=== PATIENT | female | born 1945 | race Caucasian/White ===

== ENCOUNTER → 2016-10-17 | Outpatient (REF) | payer MEDICARE | LOC: M LAB REF 10:14 | PROVIDERS: ATTEND Physician Assistant | DX: J02.9 Acute pharyngitis, unspecified (principal) ==

== ENCOUNTER → 2017-01-01 | Outpatient (REF) | payer MEDICARE ==
[2017-01-01 16:40] LABS: MEAN CORPUSCULAR HEMOGLOBIN 28.1 pg (27.0-33.0); MEAN CORPUSCULAR HGB CONC 32.9 g/dl (32.0-36.5); MEAN CORPUSCULAR VOLUME 85.5 fl (80.0-96.0); RED CELL DISTRIBUTION WIDTH 12.6 % (11.5-14.5); WHITE BLOOD COUNT 6.1 K/mm3 (4.0-10.0)
[2017-01-01 17:09] LABS: ERYTHROCYTE SEDIMENTATION RATE 7 mm/hr (0-30)
[2017-01-01 18:39] LABS: URIC ACID 3.3 MG/DL (2.6-6.0)
[2017-01-01 19:55] LABS: EOSINOPHILS 4 % (0-5)
[2017-01-05 00:07] LABS: Lyme Disease IgG/IgM Antibodie <0.91 ISR (0.00-0.90); Lyme Disease IgM Ab Quantitati <0.80 index (0.00-0.79)
== END ==
LOC: M LABDRAW1 15:50
PROVIDERS: ATTEND Physician Assistant Surgical
DX: M17.11 Unilateral primary osteoarthritis, right knee (principal)

== ENCOUNTER → 2017-05-21 | Outpatient (CLI) | payer MEDICARE | LOC: M ADAMS 13:13 | PROVIDERS: ATTEND Physician Assistant Medical | DX: J02.9 Acute pharyngitis, unspecified (principal) ==

== ENCOUNTER → 2017-07-09 | Outpatient (REF) | payer MEDICARE ==
[2017-07-09 14:52] LABS: FREE T4 1.08 NG/DL (0.76-1.46)
== END ==
LOC: M LABDRAW1 14:23
DX: E04.2 Nontoxic multinodular goiter (principal)
CPT/HCPCS: 84443

== ENCOUNTER → 2017-09-10 | Outpatient (REF) | payer MEDICARE ==
[2017-09-10 20:34] LABS: BASO % 0.4 % (0.0-1.0); EOS # 0.1 10^3/uL (0.0-0.50); EOS % 1.5 % (0.0-3.0); HEMATOCRIT 45.4 % (36.0-47.0); HEMOGLOBIN 14.5 g/dl (12.0-15.5); IMMATURE GRANULOCYTE % 0.1 % (0-3.0); LYMPH # 2.4 10^3/uL (1.5-4.5); LYMPH % 30.6 % (24.0-44.0); MEAN CORPUSCULAR HEMOGLOBIN 27.4 pg (27.0-33.0); MEAN CORPUSCULAR HGB CONC 31.9 g/dl (32.0-36.5); MEAN CORPUSCULAR VOLUME 85.8 fl (80.0-96.0); MONO # 0.4 10^3/uL (0.0-0.8); MONO % 5.1 % (0.0-5.0); NEUTROPHILS # 4.9 10^3/uL (1.8-7.7); NEUTROPHILS % 62.3 % (36.0-66.0); PLATELET COUNT, AUTOMATED 235 10^3/uL (150-450); RED BLOOD COUNT 5.29 10^6/uL (4.00-5.40); WHITE BLOOD COUNT 7.8 10^3/uL (4.0-10.0)
[2017-09-13 12:13] LABS: CONTROL LINE MONO RF C INT CTR LINE PRESENT; MONO REFLEX EBV COMP NEGATIVE (NEGATIVE)
[2017-09-15 00:08] LABS: EBV AB TO NUCLEAR ANTIGEN 94.3 U/mL (0.0-17.9)
[2017-09-15 00:08] LABS: EBV VIRAL CAPSID AG IgM <36.0 U/mL (0.0-35.9)
== END ==
LOC: M LAB REF 10:02
DX: R53.83 Other fatigue (principal)
CPT/HCPCS: 86665

== ENCOUNTER 2017-09-22 17:02 | Emergency (ER) | payer MEDICARE ==
[2017-09-22] MEDS: PANTOPRAZOLE 40MG INJ (PROTONIX) (C9113) IV (18:11)
[2017-09-22 18:29] LABS: BASO % 0.4 % (0.0-1.0); EOS # 0.1 10^3/uL (0.0-0.50); EOS % 1.6 % (0.0-3.0); HEMATOCRIT 44.1 % (36.0-47.0); HEMOGLOBIN 14.3 g/dl (12.0-15.5); IMMATURE GRANULOCYTE % 0.3 % (0-3.0); LYMPH # 2.3 10^3/uL (1.5-4.5); LYMPH % 31.4 % (24.0-44.0); MEAN CORPUSCULAR HEMOGLOBIN 26.9 pg (27.0-33.0); MEAN CORPUSCULAR HGB CONC 32.4 g/dl (32.0-36.5); MEAN CORPUSCULAR VOLUME 83.1 fl (80.0-96.0); MONO # 0.5 10^3/uL (0.0-0.8); MONO % 6.5 % (0.0-5.0); NEUTROPHILS # 4.4 10^3/uL (1.8-7.7); NEUTROPHILS % 59.8 % (36.0-66.0); PLATELET COUNT, AUTOMATED 236 10^3/uL (150-450); RED BLOOD COUNT 5.31 10^6/uL (4.00-5.40); RED CELL DISTRIBUTION WIDTH 12.8 % (11.5-14.5); WHITE BLOOD COUNT 7.4 10^3/uL (4.0-10.0)
[2017-09-22 18:46] LABS: ALBUMIN 3.9 GM/DL (3.2-5.2); ALBUMIN/GLOBULIN RATIO 1.22 (1.00-1.93); ALKALINE PHOSPHATASE 104 U/L (45-117); ALT/SGPT 25 U/L (12-78); ANION GAP 5 MEQ/L (8-16); AST/SGOT 16 U/L (7-37); BILIRUBIN,DIRECT < 0.1 MG/DL (0.0-0.2); BILIRUBIN,TOTAL 0.3 MG/DL (0.2-1.0); BLOOD UREA NITROGEN 15 MG/DL (7-18); CALCIUM LEVEL 9.4 MG/DL (8.8-10.2); CARBON DIOXIDE LEVEL 30 MEQ/L (21-32); CHLORIDE LEVEL 108 MEQ/L (98-107); CPK CREATINE PHOSPHOKINASE 85 U/L (26-192); CREATININE FOR GFR 0.94 MG/DL (0.55-1.30); GLOMERULAR FILTRATION RATE > 60.0 (>39); GLUCOSE, FASTING 109 MG/DL (70-100); LIPASE 180 U/L (73-393); POTASSIUM SERUM 4.1 MEQ/L (3.5-5.1); SODIUM LEVEL 143 MEQ/L (136-145); TOTAL PROTEIN 7.1 GM/DL (6.4-8.2); TROPONIN I < 0.02 NG/ML (< 0.10)
[2017-09-22 18:47] LABS: CK-MB VALUE MASS < 1.0 NG/ML (<3.6); MB/CK RELATIVE INDEX 1.17 (< OR =4)
[2017-09-22] MEDS: GI COCKTAIL 50ML BTL(HYOSCYAMINE/MAALOX/LIDOCAINE VISCOUS)(1:3:1) PO (19:02)
== END 2017-09-22 19:07 | disposition home or self-care (01) ==
LOC: M ED 17:02
DX: K29.70 Gastritis, unspecified, without bleeding (principal); K21.9 Gastro-esophageal reflux disease without esophagitis; K44.9 Diaphragmatic hernia without obstruction or gangrene; Z79.899 Other long term (current) drug therapy; Z79.82 Long term (current) use of aspirin
CPT/HCPCS: C9113

== ENCOUNTER 2017-10-04 10:53 | Day surgery (SDC) | payer MEDICARE ==
[2017-10-04] MEDS: NS 1,000 ML IV (11:23)
[2017-10-04] MEDS ORDERED: PROPOFOL 500 MG/50 ML VIAL As Ordered (12:11)
[2017-10-04] MEDS ORDERED: LIDOCAINE 2% INJ 100 MG/5 ML SDV (FOR ANES.) As Ordered (12:12)
[2017-10-04] MEDS ORDERED: GLYCOPYRROLATE INJ 0.2 MG/ML 2 ML VIAL As Ordered (12:35)
== END 2017-10-04 13:10 | disposition home or self-care (01) ==
LOC: M OPP 10:53
DX: Z12.11 Encounter for screening for malignant neoplasm of colon (principal); K64.0 First degree hemorrhoids; K57.30 Diverticulosis of large intestine without perforation or abscess without bleeding; R12 Heartburn; K44.9 Diaphragmatic hernia without obstruction or gangrene; I34.1 Nonrheumatic mitral (valve) prolapse; E04.2 Nontoxic multinodular goiter; K21.9 Gastro-esophageal reflux disease without esophagitis; R06.02 Shortness of breath; M19.90 Unspecified osteoarthritis, unspecified site; Z88.5 Allergy status to narcotic agent; Z79.82 Long term (current) use of aspirin; Z79.899 Other long term (current) drug therapy; Z80.8 Family history of malignant neoplasm of other organs or systems
CPT/HCPCS: G0121

== ENCOUNTER → 2017-10-11 | Outpatient (REF) | payer MEDICARE ==
[2017-10-11 16:40] LABS: FREE T4 1.11 NG/DL (0.76-1.46)
== END ==
LOC: M LABDRAW1 14:35
DX: E04.2 Nontoxic multinodular goiter (principal)
CPT/HCPCS: 84443

== ENCOUNTER 2018-01-04 11:08 | Emergency (ER) | payer MEDICARE ==
[2018-01-04] MEDS: GI COCKTAIL 50ML BTL(HYOSCYAMINE/MAALOX/LIDOCAINE VISCOUS)(1:3:1) PO (12:44)
[2018-01-04] MEDS: ONDANSETRON 4 MG ORAL DISINTEGRATING TAB (Q0162 PER 1MG) PO (12:44)
[2018-01-04] MEDS: NS 1,000 ML IV (13:07)
[2018-01-04 13:15] LABS: BASO % 0.5 % (0.0-1.0); EOS # 0.1 10^3/uL (0.0-0.50); EOS % 1.2 % (0.0-3.0); HEMATOCRIT 45.2 % (36.0-47.0); HEMOGLOBIN 14.7 g/dl (12.0-15.5); IMMATURE GRANULOCYTE % 0.1 % (0-3.0); LYMPH # 1.2 10^3/uL (1.5-4.5); LYMPH % 15.4 % (24.0-44.0); MEAN CORPUSCULAR HEMOGLOBIN 27.2 pg (27.0-33.0); MEAN CORPUSCULAR HGB CONC 32.5 g/dl (32.0-36.5); MEAN CORPUSCULAR VOLUME 83.5 fl (80.0-96.0); MONO # 0.4 10^3/uL (0.0-0.8); MONO % 5.4 % (0.0-5.0); NEUTROPHILS # 5.9 10^3/uL (1.8-7.7); NEUTROPHILS % 77.4 % (36.0-66.0); PLATELET COUNT, AUTOMATED 248 10^3/uL (150-450); RED BLOOD COUNT 5.41 10^6/uL (4.00-5.40); RED CELL DISTRIBUTION WIDTH 12.9 % (11.5-14.5); WHITE BLOOD COUNT 7.6 10^3/uL (4.0-10.0)
[2018-01-04 13:44] LABS: ALBUMIN 3.8 GM/DL (3.2-5.2); ALBUMIN/GLOBULIN RATIO 0.97 (1.00-1.93); ALKALINE PHOSPHATASE 95 U/L (45-117); ALT/SGPT 25 U/L (12-78); ANION GAP 6 MEQ/L (8-16); AST/SGOT 18 U/L (7-37); BILIRUBIN,DIRECT 0.1 MG/DL (0.0-0.2); BILIRUBIN,TOTAL 0.4 MG/DL (0.2-1.0); BLOOD UREA NITROGEN 11 MG/DL (7-18); CALCIUM LEVEL 9.1 MG/DL (8.8-10.2); CARBON DIOXIDE LEVEL 29 MEQ/L (21-32); CHLORIDE LEVEL 105 MEQ/L (98-107); CK-MB VALUE MASS 1.1 NG/ML (<3.6); CPK CREATINE PHOSPHOKINASE 95 U/L (26-192); CREATININE FOR GFR 0.94 MG/DL (0.55-1.30); GLOMERULAR FILTRATION RATE > 60.0 (>39); GLUCOSE, FASTING 112 MG/DL (70-100); LIPASE 133 U/L (73-393); MB/CK RELATIVE INDEX 1.15 (< OR =4); POTASSIUM SERUM 4.7 MEQ/L (3.5-5.1); SODIUM LEVEL 140 MEQ/L (136-145); TOTAL PROTEIN 7.7 GM/DL (6.4-8.2); TROPONIN I < 0.02 NG/ML (< 0.10)
== END 2018-01-04 14:25 | disposition home or self-care (01) ==
LOC: M ED 11:08
DX: K29.00 Acute gastritis without bleeding (principal); K21.9 Gastro-esophageal reflux disease without esophagitis; Z88.5 Allergy status to narcotic agent; Z79.899 Other long term (current) drug therapy; Z79.82 Long term (current) use of aspirin
CPT/HCPCS: Q0162

== ENCOUNTER 2018-01-08 00:53 | Emergency (ER) | payer MEDICARE ==
[2018-01-08] MEDS: METOCLOPRAMIDE INJ 10MG/2ML VIAL (J2765) IV (03:30)
[2018-01-08] MEDS: NS 1,000 ML IV (03:30)
[2018-01-08] MEDS: PANTOPRAZOLE 40MG INJ (PROTONIX) (C9113) IV (03:30)
[2018-01-08 04:05] LABS: BASO % 0.3 % (0.0-1.0); EOS # 0.1 10^3/uL (0.0-0.50); EOS % 1.6 % (0.0-3.0); HEMATOCRIT 41.6 % (36.0-47.0); HEMOGLOBIN 13.6 g/dl (12.0-15.5); IMMATURE GRANULOCYTE % 0.3 % (0-3.0); LYMPH # 1.8 10^3/uL (1.5-4.5); MEAN CORPUSCULAR HEMOGLOBIN 27.3 pg (27.0-33.0); MEAN CORPUSCULAR HGB CONC 32.7 g/dl (32.0-36.5); MEAN CORPUSCULAR VOLUME 83.4 fl (80.0-96.0); MONO # 0.4 10^3/uL (0.0-0.8); MONO % 5.8 % (0.0-5.0); NEUTROPHILS # 5.1 10^3/uL (1.8-7.7); PLATELET COUNT, AUTOMATED 216 10^3/uL (150-450); RED BLOOD COUNT 4.99 10^6/uL (4.00-5.40); RED CELL DISTRIBUTION WIDTH 12.7 % (11.5-14.5); WHITE BLOOD COUNT 7.5 10^3/uL (4.0-10.0)
[2018-01-08] MEDS: GI COCKTAIL 50ML BTL(HYOSCYAMINE/MAALOX/LIDOCAINE VISCOUS)(1:3:1) PO ×2 (04:15→05:45)
[2018-01-08] MEDS: GASTROGRAFIN SOLUTION 30ML PO ×2 (04:20→04:24)
[2018-01-08] MEDS ORDERED: ISOVUE-370 76% 100ML VIAL (Q9967) As Ordered (04:22)
[2018-01-08 04:30] LABS: ALBUMIN 3.4 GM/DL (3.2-5.2); ALBUMIN/GLOBULIN RATIO 1.13 (1.00-1.93); ALKALINE PHOSPHATASE 80 U/L (45-117); ALT/SGPT 19 U/L (12-78); ANION GAP 8 MEQ/L (8-16); AST/SGOT 11 U/L (7-37); BILIRUBIN,DIRECT 0.1 MG/DL (0.0-0.2); BILIRUBIN,TOTAL 0.4 MG/DL (0.2-1.0); BLOOD UREA NITROGEN 11 MG/DL (7-18); CALCIUM LEVEL 8.6 MG/DL (8.8-10.2); CARBON DIOXIDE LEVEL 28 MEQ/L (21-32); CHLORIDE LEVEL 107 MEQ/L (98-107); CK-MB VALUE MASS < 1.0 NG/ML (<3.6); CPK CREATINE PHOSPHOKINASE 61 U/L (26-192); CREATININE FOR GFR 0.85 MG/DL (0.55-1.30); GLOMERULAR FILTRATION RATE > 60.0 (>39); GLUCOSE, FASTING 105 MG/DL (70-100); LIPASE 171 U/L (73-393); MB/CK RELATIVE INDEX 1.63 (< OR =4); POTASSIUM SERUM 3.6 MEQ/L (3.5-5.1); SODIUM LEVEL 143 MEQ/L (136-145); TOTAL PROTEIN 6.4 GM/DL (6.4-8.2); TROPONIN I < 0.02 NG/ML (< 0.10)
== END 2018-01-08 07:04 | disposition home or self-care (01) ==
LOC: M ED 00:53
DX: K52.9 Noninfective gastroenteritis and colitis, unspecified (principal); K21.9 Gastro-esophageal reflux disease without esophagitis; F33.9 Major depressive disorder, recurrent, unspecified; K44.9 Diaphragmatic hernia without obstruction or gangrene; Z79.899 Other long term (current) drug therapy; Z79.82 Long term (current) use of aspirin; Z88.5 Allergy status to narcotic agent
CPT/HCPCS: C9113

== ENCOUNTER → 2018-01-25 | Outpatient (CLI) | payer MEDICARE ==
[2018-01-25 07:40] LABS: HEMATOCRIT 43.3 % (36.0-47.0); HEMOGLOBIN 14.1 g/dl (12.0-15.5); MEAN CORPUSCULAR HEMOGLOBIN 27.6 pg (27.0-33.0); MEAN CORPUSCULAR HGB CONC 32.6 g/dl (32.0-36.5); MEAN CORPUSCULAR VOLUME 84.7 fl (80.0-96.0); PLATELET COUNT, AUTOMATED 200 10^3/uL (150-450); RED BLOOD COUNT 5.11 10^6/uL (4.00-5.40); RED CELL DISTRIBUTION WIDTH 13.3 % (11.5-14.5); WHITE BLOOD COUNT 6.7 10^3/uL (4.0-10.0)
[2018-01-25 08:31] LABS: ALBUMIN 3.3 GM/DL (3.2-5.2); ALKALINE PHOSPHATASE 86 U/L (45-117); ALT/SGPT 18 U/L (12-78); ANION GAP 6 MEQ/L (8-16); AST/SGOT 8 U/L (7-37); BILIRUBIN,TOTAL 0.4 MG/DL (0.2-1.0); BLOOD UREA NITROGEN 13 MG/DL (7-18); CALCIUM LEVEL 8.9 MG/DL (8.8-10.2); CARBON DIOXIDE LEVEL 31 MEQ/L (21-32); CHLORIDE LEVEL 106 MEQ/L (98-107); CHOLESTEROL LEVEL 174 MG/DL (<200); CHOLESTEROL RISK RATIO 2.636 (<5); GLUCOSE, FASTING 107 MG/DL (70-100); HDL CHOLESTEROL 66 MG/DL (>40); LDL CHOLESTEROL 95.6 MG/DL (<100); NON-HDL-C 108 MG/DL; SODIUM LEVEL 143 MEQ/L (136-145); THYROXINE (T4) 9.1 UG/DL (4.5-12.0); TOTAL PROTEIN 6.3 GM/DL (6.4-8.2); TRIGLYCERIDES LEVEL 62 MG/DL (<150)
[2018-01-25 09:35] LABS: TOTAL 25(OH) VITAMIN D 74.3 NG/ML (30.0-100.0); TOTAL T3 91.2 NG/DL (60.0-181.0)
[2018-01-25 09:36] LABS: ESTRADIOL < 19.0 PG/ML; FOLLICLE STIMULATING HORMONE 92.9 mIU/mL; LUTEINIZING HORMONE 25.3 mIU/mL
== END ==
LOC: M LAB 07:06
DX: R53.83 Other fatigue (principal); E78.00 Pure hypercholesterolemia, unspecified
CPT/HCPCS: 83001

== ENCOUNTER → 2018-01-28 | Outpatient (CLI) | payer MEDICARE | LOC: M RAD 07:54 | DX: R22.1 Localized swelling, mass and lump, neck (principal) | CPT/HCPCS: 70490 ==

== ENCOUNTER → 2019-05-12 | Outpatient (REF) | payer MEDICARE ==
[~2019-05-12] MED LIST: ASPI81TA85 PO; BUPR1TAB53 PO; CARA1TAB6 PO; PRED20TA PO; PROT1TAB2 PO; TUMERIC PO; TURM500T PO; VITA200038 PO; VITATAB11 PO; ZOFR4TAB14 PO
== END ==
LOC: M LAB REF 18:52
PROVIDERS: ATTEND Dermatology
DX: C44.1292 Squamous cell carcinoma of skin of left lower eyelid, including canthus (principal); L57.0 Actinic keratosis; D22.5 Melanocytic nevi of trunk
CPT/HCPCS: 11103; 11104; 88305; G0463

== ENCOUNTER → 2019-05-16 | Outpatient (REF) | payer MEDICARE ==
[2019-05-16 13:33] LABS: APPEARANCE, URINE HAZY (CLEAR); BACTERIA, URINE AUTO NEGATIVE (NEGATIVE); BILIRUBIN, URINE AUTO NEGATIVE (NEGATIVE); BLOOD, URINE BLOOD NEGATIVE (NEGATIVE); COLOR, URINE YELLOW (YELLOW); GLUCOSE, URINE (UA) AUTO NEGATIVE (NEGATIVE); KETONE, URINE AUTO NEGATIVE (NEGATIVE); LEUKOCYTE ESTERASE, URINE AUTO NEGATIVE (NEGATIVE); NITRITE, URINE AUTO NEGATIVE (NEGATIVE); PROTEIN, URINE AUTO NEGATIVE (NEGATIVE); RBC, URINE AUTO 4 /HPF (0-3); SPECIFIC GRAVITY URINE AUTO 1.023 (1.002-1.035); SQUAMOUS EPITHELIAL CELL UR AU 0 /HPF (0-6); UROBILINOGEN, URINE AUTO 0.2 mg/dL (0.0-2.0); WBC, URINE AUTO 1 /HPF (0-3)
== END ==
LOC: M LAB REF 12:32
PROVIDERS: ATTEND Nurse Practitioner Family
DX: R31.9 Hematuria, unspecified (principal)

== ENCOUNTER → 2019-05-26 | Outpatient (REF) | payer MEDICARE | LOC: M LAB REF 17:27 | PROVIDERS: ATTEND Dermatology | DX: D04.122 Carcinoma in situ of skin of left lower eyelid, including canthus (principal) ==

== ENCOUNTER → 2019-05-27 | Outpatient (CLI) | payer MEDICARE ==
--- NOTE | 2019-05-28 14:44 | REP ---
REASON: Pain. PRIORS: None. There are degenerative changes seen moderately throughout the hand particularly affecting the DIP joints of digits 2 through 5 with asymmetric joint space narrowing and marginal osteophytosis. Chronic changes are also seen involving the wrist. There is a small ossific density seen in the web space between the first and second metacarpals near their bases possibly representing an old fracture. It is difficult to evaluate on this plain film exam. IMPRESSION:Chronic changes and other findings are suspected as described above. If this examination was performed to rule out an acute fracture then I would recommend CT. Electronically Signed by Wild Mendez DO 05/28/2019 03:26 P
== END ==
LOC: M ADAMS 17:03
PROVIDERS: ATTEND Physician Assistant
DX: M19.042 Primary osteoarthritis, left hand (principal)

== ENCOUNTER → 2019-07-05 | Outpatient (REF) | payer MEDICARE | LOC: M LAB REF 09:11 | PROVIDERS: ATTEND Dermatology | DX: C44.1292 Squamous cell carcinoma of skin of left lower eyelid, including canthus (principal) ==

== ENCOUNTER → 2019-11-23 | Outpatient (REF) | payer MEDICARE | LOC: M LAB REF 17:33 | PROVIDERS: ATTEND Dermatology | DX: L72.11 Pilar cyst (principal) ==

== ENCOUNTER → 2020-03-04 | Outpatient (CLI) | payer MEDICARE ==
[~2020-03-04] MED LIST changes: -ASPI81TA85 PO; +ASPI81TA86 PO
--- NOTE | 2020-03-13 14:46 | REP ---
CHEST X-RAY: 2-VIEWS HISTORY: Shortness of breath. COMPARISON CHEST X-RAY: 01/04/2018. FINDINGS: There are clips in the right upper quadrant consistent with previous cholecystectomy. There is a moderate S-shaped thoracolumbar scoliotic curve, which is unchanged from the 01/04/2018 study. The lungs are well-inflated and otherwise clear. The pleural angles are sharp. Heart size is normal. Pulmonary vasculature is not increased. No other bony abnormality. IMPRESSION: Moderate S-shaped thoracic and lumbar curvature of the spine. Otherwise no active disease. Post cholecystectomy clips. MTDD
== END ==
LOC: M ADAMS 13:37
PROVIDERS: ATTEND Internal Medicine Cardiovascular Disease
DX: R06.02 Shortness of breath (principal); Z92.21 Personal history of antineoplastic chemotherapy; Z90.49 Acquired absence of other specified parts of digestive tract

== ENCOUNTER → 2020-05-24 | Outpatient (REF) | payer MEDICARE ==
[2020-05-24 13:16] LABS: BASO % 0.4 % (0.0-1.0); EOS # 0.1 10^3/uL (0.0-0.5); EOS % 0.8 % (0.0-3.0); HEMATOCRIT 48.2 % (36.0-47.0); HEMOGLOBIN 15.1 g/dl (12.0-15.5); LYMPH # 1.3 10^3/uL (1.5-5.0); MEAN CORPUSCULAR HEMOGLOBIN 26.5 pg (27.0-33.0); MEAN CORPUSCULAR HGB CONC 31.3 g/dl (32.0-36.5); MEAN CORPUSCULAR VOLUME 84.6 fl (80.0-96.0); MONO # 0.4 10^3/uL (0.0-0.8); MONO % 4.2 % (0.0-5.0); NEUTROPHILS # 6.8 10^3/uL (1.5-8.5); NEUTROPHILS % 79.2 % (36.0-66.0); PLATELET COUNT, AUTOMATED 214 10^3/uL (150-450); WHITE BLOOD COUNT 8.5 10^3/uL (4.0-10.0)
[2020-05-24 13:42] LABS: ALBUMIN 3.7 GM/DL (3.2-5.2); ALT/SGPT 21 U/L (12-78); BILIRUBIN,TOTAL 0.4 MG/DL (0.2-1.0); BLOOD UREA NITROGEN 14 MG/DL (7-18); CALCIUM LEVEL 9.4 MG/DL (8.8-10.2); CARBON DIOXIDE LEVEL 30 MEQ/L (21-32); CHLORIDE LEVEL 105 MEQ/L (98-107); CREATININE FOR GFR 0.93 MG/DL (0.55-1.30); GLOMERULAR FILTRATION RATE > 60.0 (>39); GLUCOSE, FASTING 119 MG/DL (70-100); LIPASE 162 U/L (73-393); POTASSIUM SERUM 5.1 MEQ/L (3.5-5.1); SODIUM LEVEL 140 MEQ/L (136-145); TOTAL PROTEIN 7.2 GM/DL (6.4-8.2)
== END ==
LOC: M LABDRWAD 12:11
PROVIDERS: ATTEND Physician Assistant
DX: R42 Dizziness and giddiness (principal); R11.0 Nausea

== ENCOUNTER → 2020-08-15 | Outpatient (CLI) | payer MEDICARE ==
--- NOTE | 2020-08-15 09:57 | REP ---
INDICATION: COPD, ANEMIA COMPARISON: 03/04/2020 TECHNIQUE: PA and lateral. FINDINGS: Mediastinum and cardiac silhouette are stable. Scoliosis again noted. Lung dubois are clear. No consolidation, effusion, or pneumothorax. IMPRESSION: No acute cardiopulmonary process. <Electronically signed by Osmani Prasad > 08/15/20 0954
[2020-08-15 13:07] LABS: HEMATOCRIT 44.2 % (36.0-47.0); MEAN CORPUSCULAR HEMOGLOBIN 27.2 pg (27.0-33.0); MEAN CORPUSCULAR HGB CONC 31.7 g/dl (32.0-36.5); MEAN CORPUSCULAR VOLUME 85.8 fl (80.0-96.0); PLATELET COUNT, AUTOMATED 213 10^3/uL (150-450); RED BLOOD COUNT 5.15 10^6/uL (4.00-5.40); WHITE BLOOD COUNT 5.9 10^3/uL (4.0-10.0)
[2020-08-15 13:41] LABS: ALBUMIN 3.5 GM/DL (3.2-5.2); ALT/SGPT 21 U/L (12-78); BILIRUBIN,TOTAL 0.4 MG/DL (0.2-1.0); BLOOD UREA NITROGEN 16 MG/DL (7-18); CALCIUM LEVEL 9.3 MG/DL (8.8-10.2); CARBON DIOXIDE LEVEL 29 MEQ/L (21-32); CHLORIDE LEVEL 108 MEQ/L (98-107); CHOLESTEROL LEVEL 188 MG/DL (<200); CHOLESTEROL RISK RATIO 2.984 (<5); CREATININE FOR GFR 0.86 MG/DL (0.55-1.30); GLOMERULAR FILTRATION RATE > 60.0 (>39); GLUCOSE, FASTING 96 MG/DL (70-100); HDL CHOLESTEROL 63 MG/DL (>40); IRON (FE) 73 UG/DL (50-170); LDL CHOLESTEROL 112 MG/DL (<100); NON-HDL-C 125 MG/DL; PERCENT SATURATION 19.6 % (13.2-45.0); POTASSIUM SERUM 4.5 MEQ/L (3.5-5.1); SODIUM LEVEL 141 MEQ/L (136-145); TOTAL 25(OH) VITAMIN D 81.5 NG/ML (30.0-100.0); TOTAL IRON BINDING CAPACITY 373 UG/DL (250-450); TOTAL PROTEIN 6.4 GM/DL (6.4-8.2); TRIGLYCERIDES LEVEL 63 MG/DL (<150)
[2020-08-15 14:13] LABS: HEMOGLOBIN A1c 5.6 %
== END ==
LOC: M ADAMS 09:39
PROVIDERS: ATTEND Family Medicine
DX: J44.9 Chronic obstructive pulmonary disease, unspecified (principal); D48.5 Neoplasm of uncertain behavior of skin; R53.83 Other fatigue; Z79.899 Other long term (current) drug therapy

== ENCOUNTER 2020-11-19 07:11 | Emergency (ER) | payer MEDICARE ==
[~2020-11-19] VITALS: Ht 167.6 cm; Wt 58.4 kg
[2020-11-19] MEDS ORDERED: [UNRECOGNIZED DRUG - CODE] PO (07:21)
[2020-11-19] MEDS ORDERED: ALPR0.25 PO (07:21)
[2020-11-19] MEDS ORDERED: FLUO20CA22 PO (07:21)
[2020-11-19] MEDS ORDERED: PANT40TA29 PO (07:21)
[2020-11-19 08:33] LABS: HEMOGLOBIN 14.2 g/dl (12.0-15.5); MEAN CORPUSCULAR HGB CONC 31.6 g/dl (32.0-36.5); MEAN CORPUSCULAR VOLUME 85.7 fl (80.0-96.0); PLATELET COUNT, AUTOMATED 212 10^3/uL (150-450); RED BLOOD COUNT 5.25 10^6/uL (4.00-5.40); WHITE BLOOD COUNT 7.5 10^3/uL (4.0-10.0)
[2020-11-19 08:55] LABS: AMPHETAMINES LEVEL URINE NEGATIVE (NEGATIVE); BARBITURATES URINE NEGATIVE (NEGATIVE); BENZODIAZEPINES URINE POSITIVE (NEGATIVE); CANNABINOIDS URINE NEGATIVE (NEGATIVE); COCAINE METABOLITE URINE NEGATIVE (NEGATIVE); METHADONE URINE NEGATIVE (NEGATIVE); OPIATES URINE NEGATIVE (NEGATIVE); PHENCYCLIDINE URINE NEGATIVE (NEGATIVE)
[2020-11-19 09:08] LABS: ALBUMIN 3.6 GM/DL (3.2-5.2); ALT/SGPT 21 U/L (12-78); BILIRUBIN,DIRECT 0.1 MG/DL (0.0-0.2); BILIRUBIN,TOTAL 0.4 MG/DL (0.2-1.0); BLOOD UREA NITROGEN 10 MG/DL (7-18); CALCIUM LEVEL 9.2 MG/DL (8.8-10.2); CARBON DIOXIDE LEVEL 29 MEQ/L (21-32); CHLORIDE LEVEL 108 MEQ/L (98-107); CREATININE FOR GFR 0.89 MG/DL (0.55-1.30); GLOMERULAR FILTRATION RATE > 60.0 (>39); GLUCOSE, FASTING 115 MG/DL (70-100); POTASSIUM SERUM 4.7 MEQ/L (3.5-5.1); SALICYLATE LEVEL < 1.7 MG/DL (5.0-30.0); SODIUM LEVEL 141 MEQ/L (136-145); TOTAL PROTEIN 6.8 GM/DL (6.4-8.2)
[2020-11-19 09:09] LABS: ACETAMINOPHEN LEVEL < 2.0 UG/ML (10.0-30.0); ETHYL ALCOHOL (ETHANOL) < 0.003 % (0.000-0.010)
[2020-11-19 10:19] VITALS: BP 125/77
[2020-11-20] MEDS ORDERED: D31000TA2 PO (12:56)
[2020-11-20] MEDS ORDERED: VITA100091 PO (12:56)
[2020-11-20] MEDS ORDERED: ZINC1TAB2 PO (12:56)
[2020-11-20] MEDS ORDERED: FISH1000 PO (12:56)
[2020-11-20] MEDS ORDERED: [UNRECOGNIZED DRUG - OTHER] OU (12:56)
== END 2020-11-19 10:32 | disposition home or self-care (01) ==
LOC: M ED 07:11
DX: F33.9 Major depressive disorder, recurrent, unspecified (principal); K21.9 Gastro-esophageal reflux disease without esophagitis; Z88.6 Allergy status to analgesic agent; Z91.041 Radiographic dye allergy status; Z79.899 Other long term (current) drug therapy

== ENCOUNTER 2020-11-20 06:18 | Inpatient (IN) | payer MEDICARE ==
[~2020-11-20] VITALS: Ht 167.6 cm; Wt 57.6 kg
[~2020-11-20 06:18] MED LIST changes: +ALPR0.25 PO; +FLUO20CA22 PO; +PANT40TA29 PO; +[UNRECOGNIZED DRUG - CODE] PO
[2020-11-20] MEDS ORDERED: ALPRAZolam 0.25 MG TAB PO ONE (07:50)
[2020-11-20 10:12] LABS: ACETAMINOPHEN LEVEL < 2.0 UG/ML (10.0-30.0); ETHYL ALCOHOL (ETHANOL) < 0.003 % (0.000-0.010); MAGNESIUM LEVEL 2.3 MG/DL (1.8-2.4); SALICYLATE LEVEL < 1.7 MG/DL (5.0-30.0)
[2020-11-20 10:46] LABS: AMPHETAMINES LEVEL URINE NEGATIVE (NEGATIVE); BARBITURATES URINE NEGATIVE (NEGATIVE); BENZODIAZEPINES URINE POSITIVE (NEGATIVE); CANNABINOIDS URINE NEGATIVE (NEGATIVE); COCAINE METABOLITE URINE NEGATIVE (NEGATIVE); METHADONE URINE NEGATIVE (NEGATIVE); OPIATES URINE NEGATIVE (NEGATIVE); PHENCYCLIDINE URINE NEGATIVE (NEGATIVE)
[2020-11-20] MEDS ORDERED: ALPRAZolam 0.25 MG TAB PO SCH ×2 (12:00→17:00)
[2020-11-20] MEDS ORDERED: FLUoxetine 20 MG CAP PO SCH ×3 (12:00→13:39)
[2020-11-20] MEDS ORDERED: VITA100091 PO (12:56)
[2020-11-20] MEDS ORDERED: FISH1000 PO (12:56)
[2020-11-20] MEDS ORDERED: ZINC1TAB2 PO (12:56)
[2020-11-20] MEDS ORDERED: D31000TA2 PO (12:56)
[2020-11-20] MEDS ORDERED: [UNRECOGNIZED DRUG - OTHER] OU (12:56)
[2020-11-20 13:26] LABS: RSV AMPLIFICATION NEGATIVE (NEGATIVE)
[2020-11-20] MEDS: ALPRAZolam 0.25 MG TAB PO SCH ×3 (13:42→20:41)
[2020-11-20] MEDS ORDERED: MOM 30ML SUSPENSION UDC PO PRN (17:05)
[2020-11-20] MEDS ORDERED: ACETAMINOPHEN TAB 650MG DOSE (2X325MG) PO PRN (17:05)
[2020-11-20] MEDS ORDERED: MAALOX 30 ML SUSP *UDC PO PRN (17:05)
[2020-11-20] MEDS: [UNRECOGNIZED DRUG - OTHER] OU SCH (20:43)
[2020-11-20] MEDS ORDERED: [UNRECOGNIZED DRUG - OTHER] OU SCH (21:00)
[2020-11-20] MEDS: FLUoxetine 20 MG CAP PO SCH (21:00)
[2020-11-21 06:38] VITALS: BP 133/76
[2020-11-21] MEDS ORDERED: PANTOPRAZOLE 40MG TAB (PROTONIX) PO SCH ×2 (09:00)
[2020-11-21] MEDS: [UNRECOGNIZED DRUG - OTHER] OU SCH ×2 (09:15→20:58)
[2020-11-21] MEDS: PANTOPRAZOLE 40MG TAB (PROTONIX) PO SCH (09:17)
[2020-11-21] MEDS: FLUoxetine 20 MG CAP PO SCH (09:17)
[2020-11-21] MEDS: ALPRAZolam 0.25 MG TAB PO SCH ×4 (09:17→20:59)
[2020-11-21] MEDS: ASCORBIC ACID 500 MG TAB PO SCH (09:17)
[2020-11-21] MEDS: VITAMIN D 1,000 INTERNATIONAL UNITS TABLET PO SCH (09:17)
[2020-11-21] MEDS: OMEGA-3 1000MG CAPSULE PO SCH (10:30)
--- NOTE | 2020-11-21 12:21 | MHHPEPDOC ---
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 She also complains on and baby sits her grandchildren. She reports feeling burnt out and has reduced some of these responsibilities but states she doesn't know what to do with the extra time. She has reported quite a number of disappointments and sad events in her life. #1 having to take care of her father is a 13-year-old when he was diagnosed with Hodgkin's lymphoma. She was giving her father in injections, he later became addicted to the pain medications, but he lived until he was 89 years old. #2 . She reports guilt from her mother being sent to live in a penitentiary because she has Alzheimer's. No one in the family could care for her. She one month later, after having fallen in the penitentiary, not giving her her medications as she reports. #3, Her left her and 2 children and remarried a woman who is 30 years younger and had 4 more children. She states that this was a very difficult time for her financially, she stated at one point her daughter said that she was going to live with a friend but lived out of her car for several weeks. #4. Her nephew recently of ALS. #5. She is currently downsizing her house, wanting to organize her attic, basement, and barn, but states that she has no motivation, #6 Reports that she has helped her ex- through major surgeries. He has since apologized for his decision to divorce her and has made statements that he would like to rekindle the relationship but she is not interested in anymore than a friendship. PER ED REPORT: Pt self-presented to ED with increased thoughts of depression and decreased sleep, drive, and appetite. Pt presented to the ED with her daughter. Pt was seen at [facility] yesterday for similar complaints; pt. is stating that her symptoms are continuing to worsen. Pt presented with her daughter. COLT conducted beginning of MHE with pt. while her daughter was in waiting room. Pt explained multiple different responsibilities that she is faced with. Pt explained that she is struggling to get enjoyment out of the things she used to love. Pt stated that she is very burnt out and just wants to give up. Pt stated that this has been going on for the past few months, and states she has "just been plugging away until recently when it got noticeably worse." PT reported poor sleep and poor appetite. When asked if she was suicidal pt. stated "I am just so tired of feeling this way" Pt denied HI and AH/VH but did explain dreams that she feels she is awake in. Pt stated that she and her two children met with Dr. Troy Reyes yesterday, pt. stated she liked him but he does not prescribe meds and she feels she needs a medication change. Pt reports currently being on Prozac 2x daily as well as Xanax 4x daily but does not believe these are helping. Pt reports 1 prior mental health admission in the . PSA met with pt. daughter when pt. in room. Pt daughter stated that for the past couple months her mother has been increasingly tired, and that in the morning she really struggles. Pt daughter stated that every day is a rollercoaster, and she is very concerned for her mother's wellbeing. Pt daughter stated that this morning her mother told her she "couldn't be left alone" and while they were talking about why her mother said things like "I'm done fighting, I don't darrell to be here anymore" "I'm just giving up." When COLT directly asked pt. she refused to answer, but immediately began to cry. Pt daughter stated that she believes her mother's pride is getting in the way of her being honest about her mental wellbeing. Pt daughter stated that she thinks her mother is having suicidal thoughts, but is struggling to communicate that because she is able to think of different things she wants to live for like her family. Pt stated that she does not feel safe to be D/C at this point. Pt daughter agrees that pt. is not safe to be discharged. Psychiatric Review of Systems Depression (2 or more weeks): depressed mood, anhedonia, insomnia/hypersomnia, feelings of excess/guilt, decreased energy, difficulty concentrating, appetite changes, psychomotor changes Ora (4 or more days of): denies Psychosis: denies PTSD: denies Anxiety: gen/non-specific anxiety, situational anxiety, stressor related anxiety Anxiety/ 6 months or more of: easily fatigued, difficulty concentrating, sleep disturbance Past Psychiatric History Previous Psychiatric Diagnosis: Depression and anxiety Previous Psychiatric Admissions: In the at [facility] Suicide Attempts:. Denies. Psychiatric Follow-up: Dr Templeton (Not at [facility]). Psychiatric medications: Prozac 20 mg BID, Alprazolam 0.25 mg QID. Past Medical History Medical Problems Depression Anxiety GERD Gastritis History of hiatal hernia History of colitis Head Injury: No Seizures: No Hospitalizations: Yes Family Medical/Psychiatric HX Medical Problems Father , Hodgkin's lymphoma Mother Alzheimer's disease Addiction: Yes (father, opiates) Addiction History denies Social History Childhood: Born in [place] to both parents, has two older sisters. Took care of her father when he had Hodgkins Lymphoma, she gave him his injections. Abuse/Trauma: No child abuse Current Living Situation: Lives alone Education: High School Employment: Retired Social Support: Children. Legal: None Marital: 20+ Mental Status Examination General Appearance: well groomed, appears stated age, hospital scubs/clothing Build: average Demeanor: average Eye Contact: average Activity: average Behavior: cooperative Speech: clear, reg/rate,rhythm,volume Mood: depressed, anxious Affect: constricted, other (, tearful) Thought Process: logical/linear Thought Content (Delusions): none reported Thought Content (Other): none reported Thought Content (Aggressive): none reported Perception (Hallucinations): none reported Perception (Other): none reported Cognition (Impairment of): none reported Cognition(Intelligence Est.): average Oriented: Awake, Alert, Oriented times three Insight: good Judgment: Good Psychosis: Denies Diagnoses Major depressive disorder, recurrent, moderate , Generalized anxiety disorder A-FIB/CHADSVASC A-FIB History Current/History of A-Fib/PAF?: No Current PO Anticoag Therapy: No Assessment Patient is a 74 -year-old , Retired, Domiciled , female, who self presented to the emergency department with increased depression, anxiety, poor sleep, excessive crying, poor motivation and poor appetite, patient reports that she is very active in the gnosticism is 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 She also complains on and baby sits her grandchildren. She reports feeling burnt out and has reduced some of these responsibilities but states she doesn't know what to do with the extra time. She has reported quite a number of disappointments and sad events in her life. #1 having to take care of her father is a 13-year-old when he was diagnosed with Hodgkin's lymphoma. She was giving her father in injections, he later became addicted to the pain medications, but he lived until he was 89 years old. #2 . She reports guilt from her mother being sent to live in a penitentiary because she has Alzheimer's. No one in the family could care for her. She one month later, after having fallen in the penitentiary, not giving her her medications as she reports. #3, Her left her and 2 children and remarried a woman who is 30 years younger and had 4 more children. She states that this was a very difficult time for her financially, she stated at one point her daughter said that she was going to live with a friend but lived out of her car for several weeks. #4. Her nephew recently of ALS. #5. She is currently downsizing her house, wanting to organize her attic, basement, and barn, but states that she has no motivation, #6 Reports that she has helped her ex- through major surgeries. He has since apologized for his decision to divorce her and has made statements that he would like to rekindle the relationship but she is not interested in anymore than a friendship. Mental status exam patient is well groomed, appears her stated age, wearing hospital scrubs, sitting upright in chair. She is calm and cooperative, alert, oriented to person, place, time and situation. Eye contact is maintained. Her speech is clear, conversant, normal rate, tone and volume. Mood is depressed and very anxious. Affect congruent with stated mood. Thought process is linear and goal oriented. She denies and is not observed with any abnormal psychotic symptoms. Cognition and attention is intact. Intelligence is average. Insight and judgment good. Denies suicidality and homicidality. Admit to my service on 939. We will resume home medications. Place on relevant precautions. We will inc rease Prozac to 30 mg twice daily, Xanax to stay at the current dosage. Patient to be involved in individual, group and milieu therapy. Will discharge when stable with follow-up to mental health services. I anticipate this to be a 3-5 day stay Initial Treatment Plan 1. Patient was admitted on a [9.39] status. 2. Complete history was obtained. 3. With patients permission, family will be contacted and database will be expanded. 4. Patients medication regimen will be reviewed and changed accordingly. 5. Patient will be provided with protected environment. 6. Patient will be treated with individual, group, and milieu therapies. 7. Patient will receive supportive psych-education. 8. Discharge planning will commence immediately. 9. Outpatient follow-up treatment will be strongly recommended. 10. The initial treatment plan will focus initially on: * Depression. * Risk for suicide. ESTIMATED LENGTH OF STAY: 3-5 DAYS. TIME SPENT COUNSELING AND COORDINATING INITIAL CARE: 60 minutes. Tobacco Cessation Screen Tobacco Cessation Tx Ordered?: No r/t failed trials N/A-No Antipsychotics Vital Signs Vital Signs Date Time Temp Pulse Resp B/P (MAP) Pulse Ox O2 Delivery O2 Flow Rate FiO2 11/21/20 06:38 98.7 72 14 133/76 (95) 95 Room Air Laboratory Data 24H Labs Laboratory Tests 2 11/20/20 12:24: Coronavirus (COVID-19)(PCR) NEGATIVE, Influenza Type A (RT-PCR) NEGATIVE, Influenza Type B (RT-PCR) NEGATIVE, Respiratory Syncytial Virus (PCR) NEGATIVE Medications Scheduled Alprazolam (Alprazolam) 0.25 Mg Tablet, 0.25 MG PO QID, (Reported) TAKES 0700/1200/1600/2000 Ascorbic Acid (Vitamin C) 1,000 Mg Tablet, 1,000 MG PO DAILY, (Reported) Cholecalciferol (Vitamin D3) (Vitamin D3) 1,000 Unit Tablet, 4,000 UNITS PO DAILY, (Reported) Fluoxetine Hcl (Fluoxetine HCl) 20 Mg Capsule, 20 MG PO BID, (Reported) TAKES AT 0700/1200 Dudley-3 Fatty Acids/Fish Oil (Fish Oil 1,000 mg Capsule) 1 Each Capsule, 1,000 MG PO DAILY, (Reported) Pantoprazole Sodium (Pantoprazole Sodium) 40 Mg Tablet.dr, 40 MG PO DAILY, (Reported) Zinc (Zinc) 50 Mg Tablet, 50 MG PO DAILY, (Reported) [Refresh Frederick-3] , 1 DROP OU BID for SEVERE DRY EYE, (Reported) Allergies Coded Allergies: Contrast Media (Verified Adverse Reaction, Intermediate, "seizure", 11/19/20) codeine (Verified Adverse Reaction, Mild, "very sleepy", 11/19/20) PONCHO RICO NP Nov 21, 2020 12:21
--- NOTE | 2020-11-21 16:29 | HPEPDOC ---
General Date of Admission Nov 20, 2020 at 17:03 Date of Service: Nov 21, 2020 Chief Complaint The patient is a 74-year-old female admitted with a reason for visit of Unspecified Depressive Disorder. History of Present Illness 74 year old female admitted to [facility] for non specific depressive disorder. She is being examined here today for medical history and physical. Today she feels well and did not offer any complaints. Home Medications Scheduled Alprazolam (Alprazolam) 0.25 Mg Tablet, 0.25 MG PO QID, (Reported) TAKES 0700/1200/1600/2000 Ascorbic Acid (Vitamin C) 1,000 Mg Tablet, 1,000 MG PO DAILY, (Reported) Cholecalciferol (Vitamin D3) (Vitamin D3) 1,000 Unit Tablet, 4,000 UNITS PO DAILY, (Reported) Fluoxetine Hcl (Fluoxetine HCl) 20 Mg Capsule, 20 MG PO BID, (Reported) TAKES AT 0700/1200 Freeland-3 Fatty Acids/Fish Oil (Fish Oil 1,000 mg Capsule) 1 Each Capsule, 1,000 MG PO DAILY, (Reported) Pantoprazole Sodium (Pantoprazole Sodium) 40 Mg Tablet.dr, 40 MG PO DAILY, (Reported) Zinc (Zinc) 50 Mg Tablet, 50 MG PO DAILY, (Reported) [Refresh Frederick-3] , 1 DROP OU BID for SEVERE DRY EYE, (Reported) Allergies Coded Allergies: Contrast Media (Verified Adverse Reaction, Intermediate, "seizure", 11/19/20) codeine (Verified Adverse Reaction, Mild, "very sleepy", 11/19/20) Past Medical History Medical History GERD, dry eyes Surgical History cholecystectomy, appendectomy, right Eyelid naevus surgery Family History Significant Family History: Cancer (pancreatic cancer father, h/o breat cancer and bowel cancer in father's family, Father hodgkin's disease), Hypertension (1 sister), Other (sisters with thyroid problem) Social History * Smoker: Denies Alcohol: Denies Drugs: denies A-FIB/CHADSVASC A-FIB History Current/History of A-Fib/PAF?: No Review of Systems Constitutional: Denies: Chills, Fever, Night Sweats Eyes: Denies: Pain, Vision change ENT: Denies: Head Aches, Ear Pain, Dysphagia Skin: Denies: Rash, Lesions, Breakdown Pulmonary: Denies: Dyspnea, Cough Cardiovascular: Denies: Chest Pain, Palpitations, Orthopnea, Paroxysmal Noc. Dyspnea, Lt Headedness Gastrointestinal: Denies: Nausea, Vomiting, Abdominal Pain, Diarrhea Genitourinary: Denies: Dysuria, Frequency, Incontinence, Retention Physical Examination General Exam: Positive: Alert, Cooperative, No Acute Distress Eye Exam: Positive: PERRLA, Conjunctiva & lids normal, EOMI; Negative: Sclera icteric ENT Exam: Positive: Atraumatic, Mucous membr. moist/pink, Pharynx Normal Neck Exam: Positive: Supple; Negative: JVD, thyromegaly Chest Exam: Positive: Clear to auscultation, Normal air movement Heart Exam: Positive: Rate Normal, Regular Rhythm, Normal S1, Normal S2; Negative: Murmurs, Rubs Abdomen Exam: Positive: Normal bowel sounds, Soft; Negative: Tenderness, Hepatospenomegaly Extremity Exam: Positive: Normal pulses; Negative: Clubbing, Cyanosis, Edema Vital Signs Vital Signs Date Time Temp Pulse Resp B/P (MAP) Pulse Ox O2 Delivery O2 Flow Rate FiO2 11/21/20 06:38 98.7 72 14 133/76 (95) 95 Room Air Assessment/Plan 74 year old female admitted to [facility] for non specific depressive disorder. She is being examined here today for medical history and physical. Today she feels well and did not offer any complaints. Depression as per psychiatry GERD omeprazole Dry eyes continue fish oil and multivitamins No acute medical issues at this time Plan / VTE VTE Prophylaxis Ordered?: No OBIE JONES MD Nov 21, 2020 16:28
[2020-11-21 17:31] VITALS: BP 135/81
[2020-11-21] MEDS: traZODone 50 MG TAB PO PRN (20:59)
[2020-11-21] MEDS: FLUoxetine 10 MG CAP PO SCH (20:59)
[2020-11-22 05:40] VITALS: BP 142/78
[2020-11-22] MEDS: [UNRECOGNIZED DRUG - OTHER] OU SCH ×2 (08:21→20:33)
[2020-11-22] MEDS: OMEGA-3 1000MG CAPSULE PO SCH (08:23)
[2020-11-22] MEDS: PANTOPRAZOLE 40MG TAB (PROTONIX) PO SCH (08:23)
[2020-11-22] MEDS: VITAMIN D 1,000 INTERNATIONAL UNITS TABLET PO SCH (08:23)
[2020-11-22] MEDS: FLUoxetine 10 MG CAP PO SCH ×2 (08:23→20:33)
[2020-11-22] MEDS: ALPRAZolam 0.25 MG TAB PO SCH ×4 (08:23→20:32)
[2020-11-22] MEDS: ASCORBIC ACID 500 MG TAB PO SCH (10:13)
--- NOTE | 2020-11-22 11:26 | MHIPNPDOC ---
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 She also complains on and baby sits her grandchildren. She reports feeling burnt out and has reduced some of these responsibilities but states she doesn't know what to do with the extra time. She has reported quite a number of disappointments and sad events in her life. #1 having to take care of her father is a 13-year-old when he was diagnosed with Hodgkin's lymphoma. She was giving her father in injections, he later became addicted to the pain medi cations, but he lived until he was 92 years old. #2 . She reports guilt from her mother being sent to live in a custodial because she has Alzheimer's. No one in the family could care for her. She one month later, after having fallen in the custodial, not giving her her medications as she reports. #3, Her left her and 2 children and remarried a woman who is 30 years younger and had 4 more children. She states that this was a very difficult time for her financially, she stated at one point her daughter said that she was going to live with a friend but lived out of her car for several weeks. #4. Her nephew recently of ALS. #5. She is currently downsizing her house, wanting to organize her attic, basement, and barn, but states that she has no motivation, #6 Reports that she has helped her ex- through major surgeries. He has since apologized for his decision to divorce her and has made statements that he would like to rekindle the relationship but she is not interested in any more than a friendship. PER ED REPORT: Pt self-presented to ED with increased thoughts of depression and decreased sleep, drive, and appetite. Pt presented to the ED with her daughter. Pt was seen at [facility] yesterday for similar complaints; pt. is stating th at her symptoms are continuing to worsen. Pt presented with her daughter. COLT conducted beginning of MHE with pt. while her daughter was in waiting room. Pt explained multiple different responsibilities that she is faced with. Pt explained that she is struggling to get enjoyment out of the things she used to love. Pt stated that she is very burnt out and just wants to give up. Pt stated that this has been going on for the past few months, and states she has "just been plugging away until recently when it got noticeably worse." PT reported poor sleep and poor appetite. When asked if she was suicidal pt. stated "I am just so tired of feeling this way" Pt denied HI and AH/VH but did explain dreams that she feels she is awake in. Pt stated that she and her two children met with Dr. Troy Reyes yesterday, pt. stated she liked him but he does not prescribe meds and she feels she needs a medication change. Pt reports currently being on Prozac 2x daily as well as Xanax 4x daily but does not believe these are helping. Pt reports 1 prior mental health admission in the . PSA met with pt. daughter when pt. in room. Pt daughter stated that for the past couple months her mother has been increasingly tired, and that in the morning she really struggles. Pt daughter stated that every day is a rollercoaster, and she is very concerned for her mother's wellbeing. Pt daughter stated that this morning her mother told her she "couldn't be left alone" and while they were talking about why her mother said things like "I'm done fighting, I don't darrell to be here anymore" "I'm just giving up." When PSA directly asked pt. she refused to answer, but immediately began to cry. Pt daughter stated that she believes her mother's pride is getting in the way of her being honest about her mental wellbeing. Pt daughter stated that she thinks her mother is having suicidal thoughts, but is struggling to communicate that because she is able to think of different things she wants to live for like her family. Pt stated that she does not feel safe to be D/C at this point. Pt daughter agrees that pt. is not safe to be discharged. . VITAL SIGNS: See below. CURRENT MEDICATIONS: See below. MENTAL STATUS EXAMINATION: Patient is a 74 -year-old , Retired, Domiciled , female, who self-presented to the emergency department with increased depression, anxiety, poor sleep, excessive crying, poor motivation and poor appetite, and fleeting suicidal ideations General Appearance: well groomed, appears stated age, hospital scrubs/clothing Build: average Demeanor: average Eye Contact: average Activity: average Behavior: cooperative Speech: clear, reg/rate,rhythm,volume Mood: depressed, anxious Affect: constricted, other (, tearful) Thought Process: logical/linear Thought Content (Delusions): none reported Thought Content (Other): none reported Thought Content (Aggressive): none reported Perception (Hallucinations): none reported Perception (Other): none reported Cognition (Impairment of): none reported Cognition(Intelligence Est.): average Oriented: Awake, Alert, Oriented times three Insight: good Judgment: Good Psychosis: Denies DIAGNOSES: major depressive disorder, recurrent, moderate ASSESSMENT: Reports mildly improved sleep, continues to ruminate about her divorce and her part of it, attempts to place blame on herself ( no sexuality) Reports being very depressed and anxious, ruminated about a man that she dates for 6 years who before they had dinner (he had invited her to his home and he had in another room and she blames herself) [id number] Cognitive Behavioral Therapy Session: 60 minutes of Cognitive Behavio ral Therapy 1) Review of Emotional Distress of Divorce, Grief and Distraction Techniques 2) Journaling Exercises. 3) Discussion of pattern of depression, anxiety and changing behavioral reactions and patterns that cause her distress. MANAGEMENT PLAN: Continue all medications, Prozac was increased from 20 mg BID to 30 mg BID, Xanax 0.25 QID, will increase Trazodone to 75 mg, may consider Mirtazapine if this is not effective TIME SPENT: 85 minutes. Vital Signs Vital Signs Date Time Temp Pulse Resp B/P (MAP) Pulse Ox O2 Delivery O2 Flow Rate FiO2 11/22/20 05:40 97.2 82 16 142/78 (99) 98 Room Air Current Medications Current Medications Medications (Trade) Dose Ordered Sig/Burke Route PRN Reason Start Time Stop Time Status Last Admin Dose Admin Acetaminophen (Tylenol Tab) 650 mg Q6HP PRN PO HEADACHE or DISCOMFORT 11/20/20 17:05 Al Hydrox/Mg Hydrox/Simethicone (Mylanta) 30 ml Q4HP PRN PO HEARTBURN/INDIGESTION 11/20/20 17:05 Alprazolam (Xanax) 0.25 mg QID PO 11/20/20 12:00 11/20/20 13:36 DC Alprazolam (Xanax) 0.25 mg QID PO 11/20/20 17:00 Cancel Alprazolam (Xanax) 0.25 mg QID PO 11/20/20 21:00 11/22/20 08:23 Alprazolam (Xanax) 0.25 mg QID@0700,1200,1600,2000 PO 11/20/20 12:00 11/20/20 17:44 DC 11/20/20 17:21 Ascorbic Acid (Vitamin C) 1,000 mg DAILY PO 11/21/20 09:00 11/22/20 10:13 Fish Oil ([place]-3 (1000mg)) 1 cap DAILY PO 11/21/20 09:00 11/22/20 08:23 Fluoxetine HCl (PROzac) 20 mg BID PO 11/20/20 12:00 11/20/20 13:39 DC Fluoxetine HCl (PROzac) 20 mg BID PO 11/20/20 21:00 11/21/20 12:11 DC 11/21/20 09:17 Fluoxetine HCl (PROzac) 20 mg BID@0900,1200 PO 11/20/20 12:00 11/20/20 17:35 DC 11/20/20 13:48 Fluoxetine HCl (PROzac) 20 mg BID@0900,1200 PO 11/20/20 13:39 11/20/20 13:45 DC Fluoxetine HCl (PROzac) 30 mg BID PO 11/21/20 21:00 11/22/20 08:23 Home Med (Med Rec Complete!) ASDIRECTED XX 11/20/20 13:00 11/20/20 12:58 DC Magnesium Hydroxide (Milk Of Magnesia) 30 ml DAILYPRN PRN PO CONSTIPATION 11/20/20 17:05 Pantoprazole Sodium (Protonix) 40 mg DAILY PO 11/21/20 09:00 11/20/20 13:35 DC Pantoprazole Sodium (Protonix) 40 mg DAILY PO 11/21/20 09:00 11/20/20 17:36 DC Pantoprazole Sodium (Protonix) 40 mg DAILY PO 11/21/20 09:00 11/22/20 08:23 Patient Own Medication (Patient'S Own Med) 2 DROPS BID OU 11/20/20 21:00 11/20/20 17:53 DC Patient Own Medication (Patient'S Own Med) 2 DROPS BID OU 11/20/20 21:00 11/22/20 08:21 Trazodone HCl (Desyrel) 50 mg QHSP PRN PO INSOMNIA 11/20/20 17:05 11/21/20 20:59 Vitamin D (Vitamin D) 4,000 units DAILY PO 11/21/20 09:00 11/22/20 08:23 Allergies Coded Allergies: Contrast Media (Verified Adverse Reaction, Intermediate, "seizure", 11/19/20) codeine (Verified Adverse Reaction, Mild, "very sleepy", 11/19/20) PONCHO RICO NP Nov 22, 2020 11:18
[2020-11-22 16:31] VITALS: BP 111/64
[2020-11-22] MEDS: traZODone 50 MG TAB PO PRN (20:33)
[2020-11-23 07:27] VITALS: BP 128/74
[2020-11-23] MEDS: PANTOPRAZOLE 40MG TAB (PROTONIX) PO SCH (08:09)
[2020-11-23] MEDS: OMEGA-3 1000MG CAPSULE PO SCH (08:09)
[2020-11-23] MEDS: ALPRAZolam 0.25 MG TAB PO SCH ×4 (08:10→20:48)
[2020-11-23] MEDS: ASCORBIC ACID 500 MG TAB PO SCH (08:10)
[2020-11-23] MEDS: FLUoxetine 10 MG CAP PO SCH ×2 (08:10→20:48)
[2020-11-23] MEDS: VITAMIN D 1,000 INTERNATIONAL UNITS TABLET PO SCH (08:10)
[2020-11-23] MEDS: [UNRECOGNIZED DRUG - OTHER] OU SCH ×2 (08:11→20:48)
--- NOTE | 2020-11-23 08:59 | MHIPNPDOC ---
[facility] Progress Note Progress Note DATE OF SERVICE: 11/23/20 Patient reports that the she slept through the night without waking up for the first time after taking trazodone 50 mg. She is very appreciated and is happy wi th the results and reports feeling much better today. She is animated, smiling appropriately and has no new complaints and has been fully cooperating with the treatment. HISTORY: . VITAL SIGNS: See below. NEW TEST RESULTS: . CURRENT MEDICATIONS: See below. MENTAL STATUS EXAMINATION: Patient is a 74-year old female, who is , pleasant, cooperative. Speech: Is rational, coherent . Language skills are good. Thought processes including: , Relevant and organized. Thought content: Denies any suicidal thoughts. Abstract reasoning, and com putation: fair. Description of associations: [Organize. Description of abnormal or psychotic thoughts: Denies . Judgment: fair. Insight: fair. . Orientation: Word oriented. Recent and remote memory: fair. Attention span and concentration: fair. Language: . Fund of knowledge: . Mood: [Reports feeling better]. Affect: [, Appropriate]. DIAGNOSES: 1. . Major depression 2. . 3. . ASSESSMENT:[Showing some improvement] MANAGEMENT PLAN: [. Continue with the current medications of Prozac and trazodone]. TIME SPENT: [15] minutes. Vital Signs Vital Signs Date Time Temp Pulse Resp B/P (MAP) Pulse Ox O2 Delivery O2 Flow Rate FiO2 11/23/20 07:27 98.8 78 22 128/74 (92) 97 11/22/20 05:40 Room Air Current Medications Current Medications Medications (Trade) Dose Ordered Sig/Burke Route PRN Reason Start Time Stop Time Status Last Admin Dose Admin Acetaminophen (Tylenol Tab) 650 mg Q6HP PRN PO HEADACHE or DISCOMFORT 11/20/20 17:05 Al Hydrox/Mg Hydrox/Simethicone (Mylanta) 30 ml Q4HP PRN PO HEARTBURN/INDIGESTION 11/20/20 17:05 Alprazolam (Xanax) 0.25 mg QID PO 11/20/20 12:00 11/20/20 13:36 DC Alprazolam (Xanax) 0.25 mg QID PO 11/20/20 17:00 Cancel Alprazolam (Xanax) 0.25 mg QID PO 11/20/20 21:00 11/23/20 08:10 Alprazolam (Xanax) 0.25 mg QID@0700,1200,1600,2000 PO 11/20/20 12:00 11/20/20 17:44 DC 11/20/20 17:21 Ascorbic Acid (Vitamin C) 1,000 mg DAILY PO 11/21/20 09:00 11/23/20 08:10 Fish Oil ([place]-3 (1000mg)) 1 cap DAILY PO 11/21/20 09:00 11/23/20 08:09 Fluoxetine HCl (PROzac) 20 mg BID PO 11/20/20 12:00 11/20/20 13:39 DC Fluoxetine HCl (PROzac) 20 mg BID PO 11/20/20 21:00 11/21/20 12:11 DC 11/21/20 09:17 Fluoxetine HCl (PROzac) 20 mg BID@0900,1200 PO 11/20/20 12:00 11/20/20 17:35 DC 11/20/20 13:48 Fluoxetine HCl (PROzac) 20 mg BID@0900,1200 PO 11/20/20 13:39 11/20/20 13:45 DC Fluoxetine HCl (PROzac) 30 mg BID PO 11/21/20 21:00 11/23/20 08:10 Home Med (Med Rec Complete!) ASDIRECTED XX 11/20/20 13:00 11/20/20 12:58 DC Magnesium Hydroxide (Milk Of Magnesia) 30 ml DAILYPRN PRN PO CONSTIPATION 11/20/20 17:05 Pantoprazole Sodium (Protonix) 40 mg DAILY PO 11/21/20 09:00 11/20/20 13:35 DC Pantoprazole Sodium (Protonix) 40 mg DAILY PO 11/21/20 09:00 11/20/20 17:36 DC Pantoprazole Sodium (Protonix) 40 mg DAILY PO 11/21/20 09:00 11/23/20 08:09 Patient Own Medication (Patient'S Own Med) 2 DROPS BID OU 11/20/20 21:00 11/20/20 17:53 DC Patient Own Medication (Patient'S Own Med) 2 DROPS BID OU 11/20/20 21:00 11/23/20 08:11 Trazodone HCl (Desyrel) 50 mg QHSP PRN PO INSOMNIA 11/20/20 17:05 11/22/20 20:33 Vitamin D (Vitamin D) 4,000 units DAILY PO 11/21/20 09:00 11/23/20 08:10 Allergies Coded Allergies: Contrast Media (Verified Adverse Reaction, Intermediate, "seizure", 11/19/20) codeine (Verified Adverse Reaction, Mild, "very sleepy", 11/19/20) KATIE VALDEZ M.D. Nov 23, 2020 08:59
[2020-11-23 16:26] VITALS: BP 107/53
[2020-11-23] MEDS: traZODone 50 MG TAB PO PRN (22:54)
[2020-11-24 06:14] VITALS: BP 122/67
[2020-11-24] MEDS: ASCORBIC ACID 500 MG TAB PO SCH (08:11)
[2020-11-24] MEDS: ALPRAZolam 0.25 MG TAB PO SCH ×4 (08:11→20:53)
[2020-11-24] MEDS: OMEGA-3 1000MG CAPSULE PO SCH (08:11)
[2020-11-24] MEDS: PANTOPRAZOLE 40MG TAB (PROTONIX) PO SCH (08:12)
[2020-11-24] MEDS: FLUoxetine 10 MG CAP PO SCH ×2 (08:12→20:53)
[2020-11-24] MEDS: VITAMIN D 1,000 INTERNATIONAL UNITS TABLET PO SCH (08:12)
[2020-11-24] MEDS: [UNRECOGNIZED DRUG - OTHER] OU SCH ×2 (08:12→20:53)
--- NOTE | 2020-11-24 09:06 | MHIPNPDOC ---
[facility] Progress Note Progress Note DATE OF SERVICE: 11/24/20 The patient slept fairly good last night again and overall feeling much better. She is reporting good deal of relief from the Xanax but is concerned that she m ay get too dependent on it and is asking to have been reduced to 3 times a day. She is pleasant, cooperative, and denies any suicidal thoughts and is very appreciative of the help she is getting. We will reduce her alprazolam to 3 times a day. HISTORY: . VITAL SIGNS: See below. NEW TEST RESULTS: . CURRENT MEDICATIONS: See below. MENTAL STATUS EXAMINATION: Patient is a 74-year old female, who is , pleasant and cooperative. Speech: Is , coherent. Language skills are good. Thought processes including: Relevant and productive. Thought content: Denies any suicidal thoughts . Abstract reasoning, and computation: fair. Description of associations: , Organized. Description of abnormal or psychotic thoughts: Denies any . Judgment: fair. Insight: fair]. Orientation: , Well oriented. Recent and remote memory: fair. Attention span and concentration: fair. Language: . Fund of knowledge: . Mood: Not as depressed or anxious . Affect: , Appropriate. DIAGNOSES: 1. . Major depression 2. . 3. . ASSESSMENT:[Showing some improvement] MANAGEMENT PLAN: . Decrease Xanax. Continue the supportive therapy. TIME SPENT: 15 minutes. Vital Signs Vital Signs Date Time Temp Pulse Resp B/P (MAP) Pulse Ox O2 Delivery O2 Flow Rate FiO2 11/24/20 06:14 97.9 64 16 122/67 (85) 95 Room Air Current Medications Current Medications Medications (Trade) Dose Ordered Sig/Burke Route PRN Reason Start Time Stop Time Status Last Admin Dose Admin Acetaminophen (Tylenol Tab) 650 mg Q6HP PRN PO HEADACHE or DISCOMFORT 11/20/20 17:05 Al Hydrox/Mg Hydrox/Simethicone (Mylanta) 30 ml Q4HP PRN PO HEARTBURN/INDIGESTION 11/20/20 17:05 Alprazolam (Xanax) 0.25 mg QID PO 11/20/20 12:00 11/20/20 13:36 DC Alprazolam (Xanax) 0.25 mg QID PO 11/20/20 17:00 Cancel Alprazolam (Xanax) 0.25 mg QID PO 11/20/20 21:00 11/24/20 08:11 Alprazolam (Xanax) 0.25 mg QID@0700,1200,1600,2000 PO 11/20/20 12:00 11/20/20 17:44 DC 11/20/20 17:21 Ascorbic Acid (Vitamin C) 1,000 mg DAILY PO 11/21/20 09:00 11/24/20 08:11 Fish Oil ([place]-3 (1000mg)) 1 cap DAILY PO 11/21/20 09:00 11/24/20 08:11 Fluoxetine HCl (PROzac) 20 mg BID PO 11/20/20 12:00 11/20/20 13:39 DC Fluoxetine HCl (PROzac) 20 mg BID PO 11/20/20 21:00 11/21/20 12:11 DC 11/21/20 09:17 Fluoxetine HCl (PROzac) 20 mg BID@0900,1200 PO 11/20/20 12:00 11/20/20 17:35 DC 11/20/20 13:48 Fluoxetine HCl (PROzac) 20 mg BID@0900,1200 PO 11/20/20 13:39 11/20/20 13:45 DC Fluoxetine HCl (PROzac) 30 mg BID PO 11/21/20 21:00 11/24/20 08:12 Home Med (Med Rec Complete!) ASDIRECTED XX 11/20/20 13:00 11/20/20 12:58 DC Magnesium Hydroxide (Milk Of Magnesia) 30 ml DAILYPRN PRN PO CONSTIPATION 11/20/20 17:05 Pantoprazole Sodium (Protonix) 40 mg DAILY PO 11/21/20 09:00 11/20/20 13:35 DC Pantoprazole Sodium (Protonix) 40 mg DAILY PO 11/21/20 09:00 11/20/20 17:36 DC Pantoprazole Sodium (Protonix) 40 mg DAILY PO 11/21/20 09:00 11/24/20 08:12 Patient Own Medication (Patient'S Own Med) 2 DROPS BID OU 11/20/20 21:00 11/20/20 17:53 DC Patient Own Medication (Patient'S Own Med) 2 DROPS BID OU 11/20/20 21:00 11/24/20 08:12 Trazodone HCl (Desyrel) 50 mg QHSP PRN PO INSOMNIA 11/20/20 17:05 11/23/20 22:54 Vitamin D (Vitamin D) 4,000 units DAILY PO 11/21/20 09:00 11/24/20 08:12 Allergies Coded Allergies: Contrast Media (Verified Adverse Reaction, Intermediate, "seizure", 11/19/20) codeine (Verified Adverse Reaction, Mild, "very sleepy", 11/19/20) KATIE VALDEZ M.D. Nov 24, 2020 09:06
[2020-11-24 17:25] VITALS: BP 135/69
[2020-11-24] MEDS: traZODone 50 MG TAB PO PRN (21:16)
[2020-11-25 06:30] VITALS: BP 109/56
[2020-11-25] MEDS: FLUoxetine 10 MG CAP PO SCH ×2 (08:19→20:23)
[2020-11-25] MEDS: OMEGA-3 1000MG CAPSULE PO SCH (08:19)
[2020-11-25] MEDS: PANTOPRAZOLE 40MG TAB (PROTONIX) PO SCH (08:20)
[2020-11-25] MEDS: ALPRAZolam 0.25 MG TAB PO SCH ×3 (08:20→20:23)
[2020-11-25] MEDS: ASCORBIC ACID 500 MG TAB PO SCH (08:20)
[2020-11-25] MEDS: [UNRECOGNIZED DRUG - OTHER] OU SCH ×2 (08:21→20:23)
[2020-11-25] MEDS: VITAMIN D 1,000 INTERNATIONAL UNITS TABLET PO SCH (08:23)
--- NOTE | 2020-11-25 12:52 | MHIPNPDOC ---
[facility] Progress Note Progress Note DATE OF SERVICE 11/25/20 HISTORY: Patient is a 74 -year-old , Retired, Domiciled , female, who self-presented to the emergency department with increased depression, anxiety, poor sleep, excessive crying, poor motivation and poor appetite, patient reported numerous stressors: loss of nephew, being very responsible at [employer], numerous activities. She had been reporting poor sleep and poor appetite for months. VITAL SIGNS: See below. CURRENT MEDICATIONS: See below. MENTAL STATUS EXAMINATION: Patient is a 74 -year-old , Retired, Domiciled , female, who self-presented to the emergency department with increased depression, anxiety, poor sleep, excessive crying, poor motivation and poor appetite, and fleeting suicidal ideations General Appearance: well groomed, appears stated age, hospital scrubs/clothing Build: average Demeanor: average Eye Contact: average Activity: average Behavior: cooperative Speech: clear, reg/rate,rhythm,volume Mood: less depressed, decreased anxious Affect: reactive Thought Process: logical/linear Thought Content (Delusions): none reported Thought Content (Other): none reported Thought Content (Aggressive): none reported Perception (Hallucinations): none reported Perception (Other): none reported Cognition (Impairment of): none reported Cognition(Intelligence Est.): average Oriented: Awake, Alert, Oriented times three Insight: good Judgment: Good Psychosis: Denies DIAGNOSES: major depressive disorder, recurrent, moderate ASSESSMENT: Patient reports that she had a good weekend. Was initially very anxious about the weekend, felt that she would not be able to keep her mind from racing. She stated that she was able to attend groups, be social with peers and be in the milieu. She is anxious about her medications, she feels that she needs a few more days because she worries that she is not stable on her medications yet. She denies suicidal ideations. She reports less depression and decreased anxiety. Her appetite is improving and she reports that her sleep is improving, Patient is journaling and feeling that this is helpful. MANAGEMENT PLAN: Continue all medications,Xanax 0.25 TID, Prozac 30 mg BID, Trazodone is effective TIME SPENT: 25 minutes. Vital Signs Vital Signs Date Time Temp Pulse Resp B/P (MAP) Pulse Ox O2 Delivery O2 Flow Rate FiO2 11/25/20 06:30 98.1 69 20 109/56 (73) Room Air 11/24/20 06:14 95 Current Medications Current Medications Medications (Trade) Dose Ordered Sig/Burke Route PRN Reason Start Time Stop Time Status Last Admin Dose Admin Acetaminophen (Tylenol Tab) 650 mg Q6HP PRN PO HEADACHE or DISCOMFORT 11/20/20 17:05 Al Hydrox/Mg Hydrox/Simethicone (Mylanta) 30 ml Q4HP PRN PO HEARTBURN/INDIGESTION 11/20/20 17:05 Alprazolam (Xanax) 0.25 mg QID PO 11/20/20 12:00 11/20/20 13:36 DC Alprazolam (Xanax) 0.25 mg QID PO 11/20/20 17:00 Cancel Alprazolam (Xanax) 0.25 mg QID PO 11/20/20 21:00 11/24/20 09:02 DC 11/24/20 08:11 Alprazolam (Xanax) 0.25 mg QID@0700,1200,1600,2000 PO 11/20/20 12:00 11/20/20 17:44 DC 11/20/20 17:21 Alprazolam (Xanax) 0.25 mg TID PO 11/24/20 09:00 11/25/20 08:20 Ascorbic Acid (Vitamin C) 1,000 mg DAILY PO 11/21/20 09:00 11/25/20 08:20 Fish Oil ([place]-3 (1000mg)) 1 cap DAILY PO 11/21/20 09:00 11/25/20 08:19 Fluoxetine HCl (PROzac) 20 mg BID PO 11/20/20 12:00 11/20/20 13:39 DC Fluoxetine HCl (PROzac) 20 mg BID PO 11/20/20 21:00 11/21/20 12:11 DC 11/21/20 09:17 Fluoxetine HCl (PROzac) 20 mg BID@0900,1200 PO 11/20/20 12:00 11/20/20 17:35 DC 11/20/20 13:48 Fluoxetine HCl (PROzac) 20 mg BID@0900,1200 PO 11/20/20 13:39 11/20/20 13:45 DC Fluoxetine HCl (PROzac) 30 mg BID PO 11/21/20 21:00 11/25/20 08:19 Home Med (Med Rec Complete!) ASDIRECTED XX 11/20/20 13:00 11/20/20 12:58 DC Magnesium Hydroxide (Milk Of Magnesia) 30 ml DAILYPRN PRN PO CONSTIPATION 11/20/20 17:05 Pantoprazole Sodium (Protonix) 40 mg DAILY PO 11/21/20 09:00 11/20/20 13:35 DC Pantoprazole Sodium (Protonix) 40 mg DAILY PO 11/21/20 09:00 11/20/20 17:36 DC Pantoprazole Sodium (Protonix) 40 mg DAILY PO 11/21/20 09:00 11/25/20 08:20 Patient Own Medication (Patient'S Own Med) 2 DROPS BID OU 11/20/20 21:00 11/20/20 17:53 DC Patient Own Medication (Patient'S Own Med) 2 DROPS BID OU 11/20/20 21:00 11/25/20 08:21 Trazodone HCl (Desyrel) 50 mg QHSP PRN PO INSOMNIA 11/20/20 17:05 11/24/20 21:16 Vitamin D (Vitamin D) 4,000 units DAILY PO 11/21/20 09:00 11/25/20 08:23 Allergies Coded Allergies: Contrast Media (Verified Adverse Reaction, Intermediate, "seizure", 11/19/20) codeine (Verified Adverse Reaction, Mild, "very sleepy", 11/19/20) PONCHO RICO NP Nov 25, 2020 12:52
[2020-11-25 16:06] VITALS: BP 127/64
[2020-11-25] MEDS: traZODone 50 MG TAB PO PRN (20:25)
[2020-11-26 06:03] VITALS: BP 114/64
[2020-11-26] MEDS: VITAMIN D 1,000 INTERNATIONAL UNITS TABLET PO SCH (08:22)
[2020-11-26] MEDS: PANTOPRAZOLE 40MG TAB (PROTONIX) PO SCH (08:22)
[2020-11-26] MEDS: [UNRECOGNIZED DRUG - OTHER] OU SCH ×2 (08:22→20:29)
[2020-11-26] MEDS: FLUoxetine 10 MG CAP PO SCH ×2 (08:22→20:32)
[2020-11-26] MEDS: ALPRAZolam 0.25 MG TAB PO SCH ×3 (08:22→20:32)
[2020-11-26] MEDS: OMEGA-3 1000MG CAPSULE PO SCH (08:22)
[2020-11-26] MEDS: ASCORBIC ACID 500 MG TAB PO SCH (08:22)
--- NOTE | 2020-11-26 10:14 | MHIPNPDOC ---
[facility] Progress Note Progress Note DATE OF SERVICE 11/26/20 HISTORY: Patient is a 74 -year-old , Retired, Domiciled , female, who self-presented to the emergency department with increased depression, anxiety, poor sleep, excessive crying, poor motivation and poor appetite, patient reported numerous stressors: loss of nephew, being very responsible at [employer], numerous activities. She had been reporting poor sleep and poor appetite for months. VITAL SIGNS: See below. CURRENT MEDICATIONS: See below. MENTAL STATUS EXAMINATION: Patient is a 74 -year-old , Retired, Domiciled , female, who self-presented to the emergency department with increased depression, anxiety, poor sleep, excessive crying, poor motivation and poor appetite, and fleeting suicidal ideations General Appearance: well groomed, appears stated age, wearing her personal clothes Build: average Demeanor: average Eye Contact: average Activity: average Behavior: cooperative Speech: clear, reg/rate,rhythm,volume Mood: significantly decreased depression and anxiety Affect: reactive Thought Process: logical/linear Thought Content (Delusions): none reported Thought Content (Other): none reported Thought Content (Aggressive): none reported Perception (Hallucinations): none reported Perception (Other): none reported Cognition (Impairment of): none reported Cognition(Intelligence Est.): average Oriented: Awake, Alert, Oriented times three Insight: good Judgment: Good Psychosis: Denies DIAGNOSES: major depressive disorder, recurrent, moderate ASSESSMENT: Patient is calm and cooperative in interview. Very pleasant, reports significantly decreased depression and anxiety. States that she has had 3 good nights rest - had reported that she had poor sleep for several months. Discussed and educated patient on her medications, she worries that she may need an increase in Prozac dosage. Encouraged patient to consider modifying her activities to lower anxiety and stress. Stressed to her that she is reporting depression is 3/10 and that she should not feel the need to increase this dosage unless she has exhausted all non-pharmacological therapies. Encourage pt to use mindfulness, talk therapy, exercise (walking, swimming and other activities), games, socializing with friends and family and trying new hobbies to reduce her anxiety. She verbalized understanding. MANAGEMENT PLAN: Continue all medications, discharge tomorrow. TIME SPENT: 25 minutes. Vital Signs Vital Signs Date Time Temp Pulse Resp B/P (MAP) Pulse Ox O2 Delivery O2 Flow Rate FiO2 6/22/21 06:03 98.8 62 12 114/64 (81) 97 Room Air Current Medications Current Medications Medications (Trade) Dose Ordered Sig/Burke Route PRN Reason Start Time Stop Time Status Last Admin Dose Admin Acetaminophen (Tylenol Tab) 650 mg Q6HP PRN PO HEADACHE or DISCOMFORT 11/20/20 17:05 Al Hydrox/Mg Hydrox/Simethicone (Mylanta) 30 ml Q4HP PRN PO HEARTBURN/INDIGESTION 11/20/20 17:05 Alprazolam (Xanax) 0.25 mg QID PO 11/20/20 12:00 11/20/20 13:36 DC Alprazolam (Xanax) 0.25 mg QID PO 11/20/20 17:00 Cancel Alprazolam (Xanax) 0.25 mg QID PO 11/20/20 21:00 11/24/20 09:02 DC 11/24/20 08:11 Alprazolam (Xanax) 0.25 mg QID@0700,1200,1600,2000 PO 11/20/20 12:00 11/20/20 17:44 DC 11/20/20 17:21 Alprazolam (Xanax) 0.25 mg TID PO 11/24/20 09:00 11/26/20 08:22 Ascorbic Acid (Vitamin C) 1,000 mg DAILY PO 11/21/20 09:00 11/26/20 08:22 Fish Oil ([place]-3 (1000mg)) 1 cap DAILY PO 11/21/20 09:00 11/26/20 08:22 Fluoxetine HCl (PROzac) 20 mg BID PO 11/20/20 12:00 11/20/20 13:39 DC Fluoxetine HCl (PROzac) 20 mg BID PO 11/20/20 21:00 11/21/20 12:11 DC 11/21/20 09:17 Fluoxetine HCl (PROzac) 20 mg BID@0900,1200 PO 11/20/20 12:00 11/20/20 17:35 DC 11/20/20 13:48 Fluoxetine HCl (PROzac) 20 mg BID@0900,1200 PO 11/20/20 13:39 11/20/20 13:45 DC Fluoxetine HCl (PROzac) 30 mg BID PO 11/21/20 21:00 11/26/20 08:22 Home Med (Med Rec Complete!) ASDIRECTED XX 11/20/20 13:00 11/20/20 12:58 DC Magnesium Hydroxide (Milk Of Magnesia) 30 ml DAILYPRN PRN PO CONSTIPATION 11/20/20 17:05 Pantoprazole Sodium (Protonix) 40 mg DAILY PO 11/21/20 09:00 11/20/20 13:35 DC Pantoprazole Sodium (Protonix) 40 mg DAILY PO 11/21/20 09:00 11/20/20 17:36 DC Pantoprazole Sodium (Protonix) 40 mg DAILY PO 11/21/20 09:00 11/26/20 08:22 Patient Own Medication (Patient'S Own Med) 2 DROPS BID OU 11/20/20 21:00 11/20/20 17:53 DC Patient Own Medication (Patient'S Own Med) 2 DROPS BID OU 11/20/20 21:00 11/26/20 08:22 Trazodone HCl (Desyrel) 50 mg QHSP PRN PO INSOMNIA 11/20/20 17:05 11/25/20 20:25 Vitamin D (Vitamin D) 4,000 units DAILY PO 11/21/20 09:00 11/26/20 08:22 Allergies Coded Allergies: Contrast Media (Verified Adverse Reaction, Intermediate, "seizure", 11/19/20) codeine (Verified Adverse Reaction, Mild, "very sleepy", 11/19/20) PONCHO RICO NP Nov 26, 2020 10:14
[2020-11-26 16:11] VITALS: BP 122/78
[2020-11-26] MEDS: traZODone 50 MG TAB PO PRN (20:32)
[2020-11-27 05:55] VITALS: BP 116/55
[2020-11-27] MEDS: FLUoxetine 10 MG CAP PO SCH ×2 (08:11→20:59)
[2020-11-27] MEDS: VITAMIN D 1,000 INTERNATIONAL UNITS TABLET PO SCH (08:12)
[2020-11-27] MEDS: OMEGA-3 1000MG CAPSULE PO SCH (08:12)
[2020-11-27] MEDS: ASCORBIC ACID 500 MG TAB PO SCH (08:12)
[2020-11-27] MEDS: PANTOPRAZOLE 40MG TAB (PROTONIX) PO SCH (08:12)
[2020-11-27] MEDS: ALPRAZolam 0.25 MG TAB PO SCH ×3 (08:12→20:59)
[2020-11-27] MEDS: [UNRECOGNIZED DRUG - OTHER] OU SCH ×2 (10:04→20:58)
--- NOTE | 2020-11-27 11:13 | MHIPNPDOC ---
[facility] Progress Note Progress Note DATE OF SERVICE 11/27/20 HISTORY: Patient is a 74 -year-old , Retired, Domiciled , female, who self-presented to the emergency department with increased depression, anxiety, poor sleep, excessive crying, poor motivation and poor appetite, patient reported numerous stressors: loss of nephew, being very responsible at [employer], numerous activities. She had been reporting poor sleep and poor appetite for months. VITAL SIGNS: See below. CURRENT MEDICATIONS: See below. MENTAL STATUS EXAMINATION: Patient is a 74 -year-old , Retired, Domiciled , female, who self-presented to the emergency department with increased depression, anxiety, poor sleep, excessive crying, poor motivation and poor appetite, and fleeting suicidal ideations General Appearance: well groomed, appears stated age, wearing her personal clothes Build: average Demeanor: average, mildly anxious and nervous Eye Contact: average Activity: average Behavior: cooperative Speech: clear, reg/rate,rhythm,volume Mood: significantly decreased depression and reporting mild anxiety Affect: reactive Thought Process: logical/linear Thought Content (Delusions): none reported Thought Content (Other): none reported Thought Content (Aggressive): none reported Perception (Hallucinations): none reported Perception (Other): none reported Cognition (Impairment of): none reported Cognition(Intelligence Est.): average Oriented: Awake, Alert, Oriented times three Insight: good Judgment: Good Psychosis: Denies DIAGNOSES: major depressive disorder, recurrent, moderate ASSESSMENT: Patient reporting that she feels rested, states that she has anxiety about being discharged. Feels that she need another day to work calm down about the anxiety, to work on how she is going to make changes in her life to reduce anxiety and OCD traits. Feels that her depression, sleep, and appetite has improved. Wants to be discharged tomorrow. MANAGEMENT PLAN: Continue all medications, discharge tomorrow. TIME SPENT: 25 minutes. Vital Signs Vital Signs Date Time Temp Pulse Resp B/P (MAP) Pulse Ox O2 Delivery O2 Flow Rate FiO2 11/27/20 05:55 96.8 54 16 116/55 (75) 95 Room Air Current Medications Current Medications Medications (Trade) Dose Ordered Sig/Burke Route PRN Reason Start Time Stop Time Status Last Admin Dose Admin Acetaminophen (Tylenol Tab) 650 mg Q6HP PRN PO HEADACHE or DISCOMFORT 11/20/20 17:05 Al Hydrox/Mg Hydrox/Simethicone (Mylanta) 30 ml Q4HP PRN PO HEARTBURN/INDIGESTION 11/20/20 17:05 Alprazolam (Xanax) 0.25 mg QID PO 11/20/20 12:00 11/20/20 13:36 DC Alprazolam (Xanax) 0.25 mg QID PO 11/20/20 17:00 Cancel Alprazolam (Xanax) 0.25 mg QID PO 11/20/20 21:00 11/24/20 09:02 DC 11/24/20 08:11 Alprazolam (Xanax) 0.25 mg QID@0700,1200,1600,2000 PO 11/20/20 12:00 11/20/20 17:44 DC 11/20/20 17:21 Alprazolam (Xanax) 0.25 mg TID PO 11/24/20 09:00 11/27/20 08:12 Ascorbic Acid (Vitamin C) 1,000 mg DAILY PO 11/21/20 09:00 11/27/20 08:12 Fish Oil ([place]-3 (1000mg)) 1 cap DAILY PO 11/21/20 09:00 11/27/20 08:12 Fluoxetine HCl (PROzac) 20 mg BID PO 11/20/20 12:00 11/20/20 13:39 DC Fluoxetine HCl (PROzac) 20 mg BID PO 11/20/20 21:00 11/21/20 12:11 DC 11/21/20 09:17 Fluoxetine HCl (PROzac) 20 mg BID@0900,1200 PO 11/20/20 12:00 11/20/20 17:35 DC 11/20/20 13:48 Fluoxetine HCl (PROzac) 20 mg BID@0900,1200 PO 11/20/20 13:39 11/20/20 13:45 DC Fluoxetine HCl (PROzac) 30 mg BID PO 11/21/20 21:00 11/27/20 08:11 Home Med (Med Rec Complete!) ASDIRECTED XX 11/20/20 13:00 11/20/20 12:58 DC Magnesium Hydroxide (Milk Of Magnesia) 30 ml DAILYPRN PRN PO CONSTIPATION 11/20/20 17:05 Pantoprazole Sodium (Protonix) 40 mg DAILY PO 11/21/20 09:00 11/20/20 13:35 DC Pantoprazole Sodium (Protonix) 40 mg DAILY PO 11/21/20 09:00 11/20/20 17:36 DC Pantoprazole Sodium (Protonix) 40 mg DAILY PO 11/21/20 09:00 11/27/20 08:12 Patient Own Medication (Patient'S Own Med) 2 DROPS BID OU 11/20/20 21:00 11/20/20 17:53 DC Patient Own Medication (Patient'S Own Med) 2 DROPS BID OU 11/20/20 21:00 11/27/20 10:04 Trazodone HCl (Desyrel) 50 mg QHSP PRN PO INSOMNIA 11/20/20 17:05 11/26/20 20:32 Vitamin D (Vitamin D) 4,000 units DAILY PO 11/21/20 09:00 11/27/20 08:12 Allergies Coded Allergies: Contrast Media (Verified Adverse Reaction, Intermediate, "seizure", 11/19/20) codeine (Verified Adverse Reaction, Mild, "very sleepy", 11/19/20) PONCHO RICO NP Nov 27, 2020 11:13
[2020-11-27 16:00] VITALS: BP 115/60
[2020-11-27] MEDS: traZODone 50 MG TAB PO PRN (22:28)
[2020-11-28] MEDS ORDERED: ALPR0.25 PO (06:04)
[2020-11-28] MEDS ORDERED: TRAZ-252 PO (06:04)
[2020-11-28] MEDS ORDERED: FLUO10CA16 PO (06:04)
[2020-11-28 06:29] VITALS: BP 121/68
[2020-11-28] MEDS: ALPRAZolam 0.25 MG TAB PO SCH (08:14)
[2020-11-28] MEDS: FLUoxetine 10 MG CAP PO SCH (08:14)
[2020-11-28] MEDS: PANTOPRAZOLE 40MG TAB (PROTONIX) PO SCH (08:14)
[2020-11-28] MEDS: OMEGA-3 1000MG CAPSULE PO SCH (08:14)
[2020-11-28] MEDS: [UNRECOGNIZED DRUG - OTHER] OU SCH (08:14)
[2020-11-28] MEDS: VITAMIN D 1,000 INTERNATIONAL UNITS TABLET PO SCH (08:14)
[2020-11-28] MEDS: ASCORBIC ACID 500 MG TAB PO SCH (08:14)
--- NOTE | 2020-11-28 12:13 | MHDSPDOC ---
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 She also complains on and baby sits her grandchildren. She reports feeling burnt out and has reduced some of these responsibilities but states she doesn't know what to do with the extra time. She has reported quite a number of disappointments and sad events in her life. #1 having to take care of her father is a 13-year-old when he was diagnosed with Hodgkin's lymphoma. She was giving her father in injections, he later became addicted to the pain medications, but he lived until he was 92 years old. #2 . She reports guilt from her mother being sent to live in a long term because she has Alzheimer's. No one in the family could care for her. She one month later, after having fallen in the long term, not giving her her medications as she reports. #3, Her left her and 2 children and remarried a woman who is 30 years younger and had 4 more children. She states that this was a very difficult time for her financially, she stated at one point her daughter said that she was going to live with a friend but lived out of her car for several weeks. #4. Her nephew recently of ALS. #5. She is currently downsizing her house, wanting to organize her attic, basement, and barn, but states that she has no motivation, #6 Reports that she has helped her ex- through major surgeries. He has since apologized for his decision to divorce her and has made statements that he would like to rekindle the relationship but she is not interested in any more than a friendship. PER ED REPORT: Pt self-presented to ED with increased thoughts of depression and decreased sleep, drive, and appetite. Pt presented to the ED with her daughter. Pt was seen at [facility] yesterday for similar complaints; pt. is stating that her symptoms are continuing to worsen. Pt presented with her daughter. COLT conducted beginning of MHE with pt. while her daughter was in waiting room. Pt explained multiple different responsibilities that she is faced with. Pt explained that she is struggling to get enjoyment out of the things she used to love. Pt stated that she is very burnt out and just wants to give up. Pt stated that this has been going on for the past few months, and states she has "just been plugging away until recently when it got noticeably worse." PT reported poor sleep and poor appetite. When asked if she was suicidal pt. stated "I am just so tired of feeling this way" Pt denied HI and AH/VH but did explain dreams that she feels she is awake in. Pt stated that she and her two children met with Dr. Troy Reyes yesterday, pt. stated she liked him but he does not prescribe meds and she feels she needs a medication change. Pt reports currently being on Prozac 2x daily as well as Xanax 4x daily but does not believe these are helping. Pt reports 1 prior mental health admission in the . PSA met with pt. daughter when pt. in room. Pt daughter stated that for the past couple months her mother has been increasingly tired, and that in the morning she really struggles. Pt daughter stated that every day is a rollercoaster, and she is very concerned for her mother's wellbeing. Pt daughter stated that this morning her mother told her she "couldn't be left alone" and while they were talking about why her mother said things like "I'm done fighting, I don't darrell to be here anymore" "I'm just giving up." When PSA directly asked pt. she refused to answer, but immediately began to cry. Pt daughter stated that she believes her mother's pride is getting in the way of her being honest about her mental wellbeing. Pt daughter stated that she thinks her mother is having suicidal thoughts, but is struggling to communicate that because she is able to think of different things she wants to live for like her family. Pt stated that she does not feel safe to be D/C at this point. Pt daughter agrees that pt. is not safe to be discharged. VITAL SIGNS: See below. CONSULTANTS INVOLVED: See Medical H + P by Hospitalist TREATMENT AND PROGRESS ON THE UNIT: Patient was admitted to the [facility] on a legal status he was afforded the following treatment modalities: 1) Individual Therapy 2) Group Therapy 3) Medication Management 4) Milieu Therapy 5) Safe Environment HOSPITAL COURSE: Patient was admitted to [facility] on a legal status. Her medications were resumed with an increase in Prozac to 30 mg twice daily and a decrease in Xanax to 0.25 mg 3 times daily patient was cooperative and utilized all treatment modalities especially group and individual therapy session. 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 She had reported quite a number of past guilt over the loss of her father and mother including the demise of her marriage when her terminated it and a woman that was 30 years younger she also reported a loss of a boyfriend who had suddenly. Patient was able to work through some of her guilt surrounding these circumstances. She was given coping tools to help her reduce her OCD traits to volunteer for more than she could physically and mentally handle. She was able to work through the concept of having less on her to do list. Encouraged her to embrace having reached this age to reward herself with less tasks and more relaxing and enjoyable things. She at this time, is requesting to be discharged and she meets criteria. DISCHARGE ASSESSMENT: In today's interview, patient is alert and oriented, pts dress is appropriate. Hygiene and grooming is well-kempt. Smiles on approach and is pleasant and engaged in the interview. Denies depression and anxiety. Denies suicidal and homicidal ideation, planning or intent. Denies and is not observed with jimi, psychotic symptoms of delusions, bizarre thinking, obsessions, paranoia, ruminations illogical thoughts, flight of ideas or having poor insight and judgement. Patient has normal mentation, declines further hospitalization on a voluntary status and meets criteria for discharge today. Patient encouraged to return to hospital if symptoms worsen or change and encouraged to call unit if he/she/they needs to speak to provider for questions regarding medications or care. MENTAL STATUS EXAMINATION ON DISCHARGE: Patient is a 74 -year-old , Retired, Domiciled , female, who self-presented to the emergency department with increased depression, anxiety, poor sleep, excessive crying, poor motivation and poor appetite Speech: Is fluid, conversant, normal rate, tone and volume Language skills are intact Thought processes including: linear and goal oriented Thought content: denies depression and anxiety. Denies suicidal/homicidal ideation, planning or intent. Abstract reasoning, and computation: fair Description of associations: denies, none observed Description of abnormal or psychotic thoughts: denies, none observed. Judgment: fair Insight: fair Orientation: alert and oriented to person, place, time and situation Recent and remote memory: intact Attention span and concentration: good Language: expansive Fund of knowledge: average Mood: Euthymic Mood Affect: reactive MEDICATIONS ON DISCHARGE: See Medication Reconciliation PLAN/FOLLOWUP ARRANGEMENTS: The amount of time spent in the coordination of care for this patient was approximately 25 minutes. ETOH/Disorder Med Rx ETOH/DRUG DISORDER RX: N/A Vital Signs/I&Os Vital Signs Date Time Temp Pulse Resp B/P (MAP) Pulse Ox O2 Delivery O2 Flow Rate FiO2 11/28/20 06:29 97.1 68 14 121/68 (85) 95 Room Air Medications Scheduled Alprazolam (Alprazolam) 0.25 Mg Tablet, 0.25 MG PO TID for Anxiety, #21 TAKES 0700/1200/1600/2000 Ascorbic Acid (Vitamin C) 1,000 Mg Tablet, 1,000 MG PO DAILY, (Reported) Cholecalciferol (Vitamin D3) (Vitamin D3) 1,000 Unit Tablet, 4,000 UNITS PO DAILY, (Reported) Fluoxetine Hcl (Fluoxetine HCl) 10 Mg Capsule, 30 MG PO BID for Mood, #42 [place]-3 Fatty Acids/Fish Oil (Fish Oil 1,000 mg Capsule) 1 Each Capsule, 1,000 MG PO DAILY, (Reported) Pantoprazole Sodium (Pantoprazole Sodium) 40 Mg Tablet.dr, 40 MG PO DAILY, (Reported) Zinc (Zinc) 50 Mg Tablet, 50 MG PO DAILY, (Reported) [[place]-3] , 1 DROP OU BID for SEVERE DRY EYE, (Reported) Scheduled PRN Trazodone HCl (Trazodone HCl) 50 Mg Tablet, 50 MG PO QHSP PRN for INSOMNIA, #7 Allergies Coded Allergies: Contrast Media (Verified Adverse Reaction, Intermediate, "seizure", 11/19/20) codeine (Verified Adverse Reaction, Mild, "very sleepy", 11/19/20) PONCHO RICO NP Nov 28, 2020 09:32
== END 2020-11-28 11:30 | disposition home or self-care (01) | DRG 885 ==
LOC: M ED 06:18 → M ED INP 17:03 → M PSY 17:46
PROVIDERS: ADMIT Psychiatry & Neurology Psychiatry; ATTEND Psychiatry & Neurology Psychiatry
DX: F33.1 Major depressive disorder, recurrent, moderate (principal); F41.1 Generalized anxiety disorder; F42.2 Mixed obsessional thoughts and acts; K21.9 Gastro-esophageal reflux disease without esophagitis; Z79.899 Other long term (current) drug therapy; Z20.822 Contact with and (suspected) exposure to COVID-19; Z91.041 Radiographic dye allergy status; Z88.5 Allergy status to narcotic agent; H04.129 Dry eye syndrome of unspecified lacrimal gland; Z63.4 Disappearance and death of family member; Z63.5 Disruption of family by separation and divorce

== ENCOUNTER 2020-12-01 19:19 | Inpatient (IN) | payer MEDICARE ==
[~2020-12-01] VITALS: Ht 167.6 cm; Wt 58.0 kg
[~2020-12-01 19:19] MED LIST changes: +D31000TA2 PO; +FISH1000 PO; +FLUO10CA16 PO; +TRAZ-252 PO; +VITA100091 PO; +ZINC1TAB2 PO; +[UNRECOGNIZED DRUG - OTHER] OU
[2020-12-01] MEDS ORDERED: PARoxetine 10MG TABLET PO ONE (22:50)
[2020-12-01] MEDS ORDERED: traZODone 50 MG TAB PO ONE (22:50)
[2020-12-02] MEDS ORDERED: PANTOPRAZOLE 40MG TAB (PROTONIX) PO ONE (08:10)
[2020-12-02] MEDS ORDERED: ALPRAZolam 0.25 MG TAB PO ONE ×2 (08:10→14:35)
[2020-12-02] MEDS ORDERED: FLUoxetine 10 MG CAP PO ONE (08:10)
[2020-12-02 11:46] LABS: HEMATOCRIT 46.8 % (36.0-47.0); HEMOGLOBIN 14.7 g/dl (12.0-15.5); MEAN CORPUSCULAR HEMOGLOBIN 26.9 pg (27.0-33.0); MEAN CORPUSCULAR HGB CONC 31.4 g/dl (32.0-36.5); MEAN CORPUSCULAR VOLUME 85.6 fl (80.0-96.0); PLATELET COUNT, AUTOMATED 241 10^3/uL (150-450); RED BLOOD COUNT 5.47 10^6/uL (4.00-5.40); WHITE BLOOD COUNT 9.2 10^3/uL (4.0-10.0)
[2020-12-02] MEDS ORDERED: FLUO10TA2 PO (12:09)
[2020-12-02] MEDS ORDERED: TRAZ-252 PO (12:09)
[2020-12-02] MEDS ORDERED: ALPR0.25 PO (12:09)
[2020-12-02 12:15] LABS: ACETAMINOPHEN LEVEL < 2.0 UG/ML (10.0-30.0); ALBUMIN 3.9 GM/DL (3.2-5.2); ALT/SGPT 23 U/L (12-78); BILIRUBIN,DIRECT 0.2 MG/DL (0.0-0.2); BILIRUBIN,TOTAL 0.7 MG/DL (0.2-1.0); BLOOD UREA NITROGEN 10 MG/DL (7-18); CALCIUM LEVEL 9.7 MG/DL (8.8-10.2); CARBON DIOXIDE LEVEL 28 MEQ/L (21-32); CHLORIDE LEVEL 105 MEQ/L (98-107); CREATININE FOR GFR 0.97 MG/DL (0.55-1.30); ETHYL ALCOHOL (ETHANOL) < 0.003 % (0.000-0.010); GLOMERULAR FILTRATION RATE 59.8 (>39); GLUCOSE, FASTING 110 MG/DL (70-100); POTASSIUM SERUM 4.2 MEQ/L (3.5-5.1); SALICYLATE LEVEL < 1.7 MG/DL (5.0-30.0); SODIUM LEVEL 139 MEQ/L (136-145); TOTAL PROTEIN 7.3 GM/DL (6.4-8.2)
[2020-12-02 12:19] LABS: AMPHETAMINES LEVEL URINE NEGATIVE (NEGATIVE); BARBITURATES URINE NEGATIVE (NEGATIVE); BENZODIAZEPINES URINE NEGATIVE (NEGATIVE); CANNABINOIDS URINE NEGATIVE (NEGATIVE); COCAINE METABOLITE URINE NEGATIVE (NEGATIVE); METHADONE URINE NEGATIVE (NEGATIVE); OPIATES URINE NEGATIVE (NEGATIVE); PHENCYCLIDINE URINE NEGATIVE (NEGATIVE)
[2020-12-02 12:32] LABS: RSV AMPLIFICATION NEGATIVE (NEGATIVE)
--- NOTE | 2020-12-02 14:13 | MHCRPDOC ---
[facility] Consultation Consultation DATE OF CONSULTATION: 12/02/20 CONSULTATION REQUESTED BY: ED REASON FOR CONSULTATION: Psychiatric Consult . RELEVANT HISTORY: Patient is a 74-year-old retired domiciled female who presents to the emergency department with increased depression anxiety complains of poor sleep and excessive crying poor motivation poor appetite. Patient was recently admitted to this facility on November 20, 2020 to November 28, 2020. Patient's complaints today are similar to her last admission and she had reported on this occasion to her friend that she has suicidal ideations. "I just want to give up. " PAST PSYCHIATRIC HISTORY: Patient has a history of depression and generalized anxiety disorder. She reports having OCD traits. She had reported a number of stressors many of them were things that she had ruminated about excessively. 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 She had reported a recent loss of a young relative. She has quite a lot of grief and gu ilt over her father's and her mother's after she had been placed in a assisted (mother 1 month after she was placed in a assisted. She ruminates about her divorce from 20 years ago and currently her ex- has needed her help for postop surgeries. She reported on her last admission that she had no motivation and was not having any enjoyment out of the things that she used to love this past weekend her daughter brought a puppy and she stated that she was very happy for only a few moments and then became very anxious and severely sad. She reports struggling to get up in the morning and she continues to report poor sleep. PAST MEDICAL HISTORY: Depression anxiety GERD gastritis history of hiatal hernia history of colitis FAMILY HISTORY: Mother: Alzheimer's Father: Hodgkin's Siblings: No report Children: Healthy son and daughter PERSONAL AND SOCIAL HISTORY: The patient was born and raised in [place]. Patient has 2 sisters that are older. 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 Speech is normal rate tone and volume Language skills are intact. Thought processes including: Linear. Thought content: Depression anxiety and fleeting suicidal ideation. Abstract reasoning, and computation: Fair. Description of associations: None. Description of abnormal or psychotic thoughts: None. Judgment: Fair. Insight: Fair. Orientation to person place time and situation. Recent and remote memory: Intact. Attention span and concentration: Fair to good. Language: Expansive. Fund of knowledge: Above average. Mood: Depressed. Affect: Tearful congruent with mood. DIAGNOSIS: 1. Major depressive disorder recurrent moderate. 2. Generalized anxiety disorder 3. Obsessive-compulsive disorder PLAN: Admit to psychiatry ([facility]). Vital Signs Vital Signs Date Time Temp Pulse Resp B/P (MAP) Pulse Ox O2 Delivery O2 Flow Rate FiO2 12/02/20 13:30 98.5 84 16 120/71 (87) 97 Room Air Laboratory Data 24H Labs Laboratory Tests 2 12/02/20 11:26: Coronavirus (COVID-19)(PCR) NEGATIVE, Influenza Type A (RT-PCR) NEGATIVE, Influenza Type B (RT-PCR) NEGATIVE, Respiratory Syncytial Virus (PCR) NEGATIVE 12/02/20 11:32: Urine Opiates Screen NEGATIVE, Urine Methadone Screen NEGATIVE, Urine Barbiturates Screen NEGATIVE, Urine Phencyclidine Screen NEGATIVE, Urine Amphetamines Screen NEGATIVE, Urine Benzodiazepines Screen NEGATIVE, Urine Cocaine Metabolite Screen NEGATIVE, Urine Cannabinoids Screen NEGATIVE 12/02/20 11:34: Nucleated Red Blood Cells % (auto) 0.0, Anion Gap 6L, Glomerular Filtration Rate 59.8, Calcium Level 9.7, Total Bilirubin 0.7, Direct Bilirubin 0.2, Aspartate Amino Transf (AST/SGOT) 15, Alanine Aminotransferase (ALT/SGPT) 23, Alkaline P hosphatase 103, Total Protein 7.3, Albumin 3.9, Albumin/Globulin Ratio 1.1L, Thyroid Stimulating Hormone (TSH) 2.050, Salicylates Level < 1.7L, Acetaminophen Level < 2.0L, Ethyl Alcohol Level < 0.003 Home Medications Current Medications Current Medications Medications (Trade) Dose Ordered Sig/Burke Route PRN Reason Start Time Stop Time Status Last Admin Dose Admin Home Med (Med Rec Complete!) ASDIRECTED XX 12/02/20 12:10 12/02/20 12:12 DC Scheduled Alprazolam (Alprazolam) 0.25 Mg Tablet, 0.25 MG PO TID, (Reported) Ascorbic Acid (Vitamin C) 1,000 Mg Tablet, 1,000 MG PO DAILY, (Reported) Cholecalciferol (Vitamin D3) (Vitamin D3) 1,000 Unit Tablet, 4,000 UNITS PO DAILY, (Reported) Fluoxetine HCl (Fluoxetine HCl) 10 Mg Tablet, 30 MG PO BID, (Reported) [place]-3 Fatty Acids/Fish Oil (Fish Oil 1,000 mg Capsule) 1 Each Capsule, 1,000 MG PO DAILY, (Reported) Pantoprazole Sodium (Pantoprazole Sodium) 40 Mg Tablet.dr, 40 MG PO DAILY, (Reported) Zinc (Zinc) 50 Mg Tablet, 50 MG PO DAILY, (Reported) [Refresh Frederick-3] , 1 DROP OU BID for SEVERE DRY EYE, (Reported) Scheduled PRN Trazodone HCl (Trazodone HCl) 50 Mg Tablet, 50 MG PO QHS PRN for INSOMNIA, (Reported) Allergies Coded Allergies: Contrast Media (Verified Adverse Reaction, Intermediate, "seizure", 11/19/20) codeine (Verified Adverse Reaction, Mild, "very sleepy", 11/19/20) PONCHO RICO NP Dec 02, 2020 13:56
[2020-12-02] MEDS ORDERED: traZODone 50 MG TAB PO PRN (16:25)
[2020-12-02] MEDS ORDERED: MOM 30ML SUSPENSION UDC PO PRN (16:25)
[2020-12-02] MEDS ORDERED: MAALOX 30 ML SUSP *UDC PO PRN (16:25)
[2020-12-02] MEDS ORDERED: ACETAMINOPHEN TAB 650MG DOSE (2X325MG) PO PRN (16:25)
[2020-12-02] MEDS: POLYVINYL ALCOHOL OPHTH SOLN 15 ML(LIQUITEARS) OU SCH (21:00)
[2020-12-02] MEDS: ALPRAZolam 0.25 MG TAB PO SCH (21:05)
--- NOTE | 2020-12-02 22:40 | ECGEPIP ---
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
[2020-12-03] MEDS: ALPRAZolam 0.25 MG TAB PO SCH ×4 (06:34→21:02)
[2020-12-03 07:22] VITALS: BP 152/72
[2020-12-03] MEDS: POLYVINYL ALCOHOL OPHTH SOLN 15 ML(LIQUITEARS) OU SCH ×2 (08:07→21:01)
[2020-12-03] MEDS: PANTOPRAZOLE 40MG TAB (PROTONIX) PO SCH (08:08)
[2020-12-03] MEDS: ASCORBIC ACID 500 MG TAB PO SCH (08:09)
[2020-12-03] MEDS: OMEGA-3 1000MG CAPSULE PO SCH (08:09)
[2020-12-03] MEDS: VITAMIN D 1,000 INTERNATIONAL UNITS TABLET PO SCH (08:09)
[2020-12-03] MEDS: FLUoxetine 10 MG CAP PO SCH ×2 (11:32→21:02)
--- NOTE | 2020-12-03 13:09 | MHHPEPDOC ---
General Date Of Admission: Dec 02, 2020 Legal Status: 9.13 Chief Complaint "I am so depressed and anxious, I just want to end it all." History of Present Illness HISTORY OF THE PRESENT ILLNESS: Patient is a 74 -year-old , female, who presents to the emergency department with increased depression anxiety complains of poor sleep and excessive crying poor motivation poor appetite. Patient was recently admitted to this facility on November 20, 2020 to November 28, 2020. Patient's complaints today are similar to her last admission and she had reported on this occasion to her friend that she has suicidal ideations. "I just want to give up." Patient found in her room has not been out of the states that she has no motivation to get up today. She appears to be more depressed than her first admission to the hospital on November 20. Patient has a flat and blunted affect and is quite depressed. She is quite's fixated on her medications not working. PAST PSYCHIATRIC HISTORY: Patient has a history of depression and generalized a nxiety disorder. She reports having OCD traits. She had reported a number of stressors many of them were things that she had ruminated about excessively. 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 She had reported a recent loss of a young relative. She has quite a lot of grief and guilt over her father's and her mother's after she had been placed in a fci (mother 1 month after she was placed in a fci. She ruminates about her divorce from 20 years ago and currently her ex- has needed her help for postop surgeries. She reported on her last admission that she had no motivation and was not having any enjoyment out of the things that she used to love this past weekend her daughter brought a puppy and she stated that she was very happy for only a few moments and then became very anxious and severely sad. She reports struggling to get up in the morning and she continues to report poor sleep. PER ED REPORT: Pt self-presented to ED with complaints of increased depression symptoms and lack of energy and interest in doing things. PSA met with pt. at bedside who stated she is struggling greatly with her mental health. Pt states that she was recently discharged from the [facility] (11/28/20) and since being discharged, her symptoms have begun to resurface. Pt denies SI/HI but did state "I just cannot live like this anymore." Pt reports that she is sick of the constant up and down of her emotions. Pt states that she cannot identify what has changed since she was discharged. Pt believes that her medication needs to be changed, but does not feel comfortable changing her medication on an outpatient basis because she lives alone and that doesn't feel safe. Pt reports that "her days are so lonely" and "I just can't hit that high happy feeling anymore." Pt was very tearful during evaluation and had very flat affect. At this point pt. does not meet involuntary criteria, but is requesting voluntary admission. For more expansive history please see history and physical dated November 20, 2020 Psychiatric Review of Systems Depression (2 or more weeks): depressed mood, anhedonia, insomnia/hypersomnia, feelings of excess/guilt, decreased energy, difficulty concentrating, appetite changes, psychomotor changes, suicidal thoughts Ora (4 or more days of): denies Psychosis: denies PTSD: denies Anxiety: gen/non-specific anxiety, situational anxiety, stressor related anxiety Anxiety/ 6 months or more of: restlessness, keyed up, easily fatigued, difficulty concentrating, irritability, sleep disturbance Past Psychiatric History Previous Psychiatric Diagnosis: Major depressive disorder unspecified anxiety disorder Previous Psychiatric Admissions: In the at [facility] and most recent hospitalization [facility] 11/20//. Suicide Attempts: None. Psychiatric Follow-up: Patient was going to follow-up with [facility] but return to the hospital 3 days later. Psychiatric medications: Prozac 30 mg twice daily Xanax 0.25 mg 3 times daily trazodone 50 mg at bedtime. Past Medical History Medical Problems Depression Anxiety GERD Gastritis History of hiatal hernia History of colitis Allergies: Contrast media, codeine Head Injury: No Seizures: No Hospitalizations: Yes Surgeries: Yes Family Medical/Psychiatric HX Medical Problems Father , Hodgkin's lymphoma Mother , Alzheimer's disease Psychiatric Disorders: No Addiction: Yes (Father, opiates) Suicide Attemps/Completions: No Addiction History denies Social History Childhood: Raised in [facility] to both parents, has 2 older sisters. Took care of her father when he had Hodgkin's lymphoma. She was approximately 12 years old and was giving him his pain medication injections. Reports that she had a "wonderful childhood" Abuse/Trauma: Denies any child abuse. Current Living Situation: Lives alone in her own home. Education: High school. Employment: Retired. Social Support: Children (daughter Anne-Marie, son Hank) Legal: None. Marital: x20 years. Mental Status Examination General Appearance: unkempt, disheveled, appears stated age, hospital scubs/clothing Build: thin Demeanor: withdrawn, guarded Eye Contact: avoidant Activity: anxious, other (Shaky tremulous) Behavior: cooperative, loss of interests, anhedonia, withdrawn Speech: low in volume, impoverished, other Mood: depressed, anxious, other (Tearful) Affect: flat, anxious, other (Despondent) Thought Process: logical/linear Thought Content (Delusions): denies SI, HI, AVH Thought Content (Other): guarded Thought Content (Aggressive): none reported Perception (Hallucinations): none reported Perception (Other): none reported Cognition (Impairment of): none reported, memory, attention/concentration Cognition(Intelligence Est.): average Oriented: Awake, Alert, Oriented times three Insight: fair Judgment: Fair Psychosis: Denies Diagnoses Major depressive disorder, recurrent, moderate Generalized anxiety disorder Obsessive-compulsive disorder A-FIB/CHADSVASC A-FIB History Current/History of A-Fib/PAF?: No Current PO Anticoag Therapy: No Assessment Patient is a 74-year-old retired domiciled female who self presented to the ED with symptoms similar to her last admission on 11/20/2020 to 11/28/2020 where she had complained of increased depression anxiety poor sleep excessive crying poor motivation poor appetite in fleeting suicidal ideations. At that time she had been reporting that she had a number of responsibilities within her alevism she was also babysitting her grandchildren cleaning on 1 day a week and that much of these activities was too much for her causing her so much anxiety. She had reported that she had several months of poor sleep that exacerbated her anxiety which then caused her clinical depression much of the patient's anxiety stems from her worry of her children, grandchildren, ex- , her inability to get through her to do lists as she reports that she has become very obsessive about getting things done and being task oriented. We will resume patient's medications. I am not in agreement of Opal with patient's age. The patient has been on Prozac for approximately 3 months at this point and prior to that she was not on any antidepressant. On her last admission patient had requested for her Xanax to be titrated down I believe that this was not adequate for her anxiety and have resumed the 4 times daily administration of Xanax 0.25 mg, Prozac is to continue at 30 mg twice daily. Admit to my service on voluntary legal status place on relevant precautions. I will consider titrating Prozac even further to therapeutic levels. Patient is to be involved in individual group and milieu therapy will discharge the patient when she is stable, family is considering having her stay with her older sister and or finding residential treatment for her upon stabilization from the hospital I anticipate this to be a 7 to 10 days stay Initial Treatment Plan 1. Patient was admitted on a [9.39] status. 2. Complete history was obtained. 3. With patients permission, family will be contacted and database will be expanded. 4. Patients medication regimen will be reviewed and changed accordingly. 5. Patient will be provided with protected environment. 6. Patient will be treated with individual, group, and milieu therapies. 7. Patient will receive supportive psych-education. 8. Discharge planning will commence immediately. 9. Outpatient follow-up treatment will be strongly recommended. 10. The initial treatment plan will focus initially on: * Depression. * Risk for suicide * Anxiety symptoms ESTIMATED LENGTH OF STAY: 7 to 10 days DAYS. TIME SPENT COUNSELING AND COORDINATING INITIAL CARE: 60 minutes. Tobacco Cessation Screen If Patient is a Smoker Patient is not a smoker N/A-No Antipsychotics Vital Signs Vital Signs Date Time Temp Pulse Resp B/P (MAP) Pulse Ox O2 Delivery O2 Flow Rate FiO2 12/03/20 07:22 99.4 75 20 152/72 (98) 97 Room Air Medications Scheduled Alprazolam (Alprazolam) 0.25 Mg Tablet, 0.25 MG PO TID, (Reported) Ascorbic Acid (Vitamin C) 1,000 Mg Tablet, 1,000 MG PO DAILY, (Reported) Cholecalciferol (Vitamin D3) (Vitamin D3) 1,000 Unit Tablet, 4,000 UNITS PO DAILY, (Reported) Fluoxetine HCl (Fluoxetine HCl) 10 Mg Tablet, 30 MG PO BID, (Reported) [place]-3 Fatty Acids/Fish Oil (Fish Oil 1,000 mg Capsule) 1 Each Capsule, 1,000 MG PO DAILY, (Reported) Pantoprazole Sodium (Pantoprazole Sodium) 40 Mg Tablet.dr, 40 MG PO DAILY, (Reported) Zinc (Zinc) 50 Mg Tablet, 50 MG PO DAILY, (Reported) [Refresh [place]-3] , 1 DROP OU BID for SEVERE DRY EYE, (Reported) Scheduled PRN Trazodone HCl (Trazodone HCl) 50 Mg Tablet, 50 MG PO QHS PRN for INSOMNIA, (Reported) Allergies Coded Allergies: Contrast Media (Verified Adverse Reaction, Intermediate, "seizure", 11/19/20) codeine (Verified Adverse Reaction, Mild, "very sleepy", 11/19/20) PONCHO RICO NP Dec 03, 2020 12:39
--- NOTE | 2020-12-03 13:47 | HPEPDOC ---
[facility] Medical History & Physical Date of Admission Dec 02, 2020 Date of Service: Dec 03, 2020 Attending Physician: MONICA PATEL MD History and Physical CHIEF COMPLAINT: Suicidal ideation HISTORY OF PRESENT ILLNESS: Very pleasant 74 yo W with a history of GERD, depression and anxiety who was [facility] with suicidal ideation who returned to the hospital with the same and is now re-ad[facility] for depression, debilitating anxiety and passive thoughts of wishing herself . She appears to have great insight and self represented for psychiatric optimization. She otherwise denies any physical illness without history of recent chest pain, palpitations, shortness of breath, fever, chills, nausea, emesis, diarrhea. She reports recently having had a low mood, feeling hopeless, poor sleep despite trazodone, poor PO, lack of interest in activities and profound anxiety. PAST MEDICAL HISTORY: Depression Anxiety GERD Gastritis with a history of hiatal hernia FAMILY HISTORY: Mother: Alzheimer's Father: Hodgkin's Siblings: No report Children: Healthy son and daughter SOCIAL HISTORY: Smoking: Denies ETOH: Denies Illicit Drugs: Denies ROS: 10 point ROS was negative except as noted in HPI Physical examination: Vitals: see below General: NAD HEENT: NCAT, EOMI, MMM Pulm: CTAB Cardiac: RRR, no m/r/g Abd: Normoactive bowel sounds, soft, NTND Ext: WWP, no edema Psych: Aox3, depressed mood Labs: reviewed Assessment: 74-year-old W with a history of GERD, depression and anxiety, [facility] who presented to the ED with increased depression, anxiety, hopelessness and feeling like she just wants to give up and admitted [facility] for depression with passive suicidal ideation. Depression, anxiety with passive suicidality: -Plan per primary psych team GERD: -continue home protonix Medicine will sign off at this time. Vital Signs Vital Signs Date Time Temp Pulse Resp B/P (MAP) Pulse Ox O2 Delivery O2 Flow Rate FiO2 12/03/20 07:22 99.4 75 20 152/72 (98) 97 Room Air Home Medications Scheduled Alprazolam (Alprazolam) 0.25 Mg Tablet, 0.25 MG PO TID Ascorbic Acid (Vitamin C) 1,000 Mg Tablet, 1,000 MG PO DAILY Cholecalciferol (Vitamin D3) (Vitamin D3) 1,000 Unit Tablet, 4,000 UNITS PO DAILY Fluoxetine HCl (Fluoxetine HCl) 10 Mg Tablet, 30 MG PO BID [place]-3 Fatty Acids/Fish Oil (Fish Oil 1,000 mg Capsule) 1 Each Capsule, 1,000 MG PO DAILY Pantoprazole Sodium (Pantoprazole Sodium) 40 Mg Tablet.dr, 40 MG PO DAILY Zinc (Zinc) 50 Mg Tablet, 50 MG PO DAILY [Refresh [place]-3] , 1 DROP OU BID for SEVERE DRY EYE Scheduled PRN Trazodone HCl (Trazodone HCl) 50 Mg Tablet, 50 MG PO QHS PRN for INSOMNIA Allergies Coded Allergies: Contrast Media (Verified Adverse Reaction, Intermediate, "seizure", 11/19/20) codeine (Verified Adverse Reaction, Mild, "very sleepy", 11/19/20) A-FIB/CHADSVASC A-FIB History Current/History of A-Fib/PAF?: No Current PO Anticoag Therapy: No Age/Risk Factor Scoring CHADSVASC: CHADSVASC Response (Comments) Value Age Risk Factor Age 65-74 years old 1 Gender Risk Factor Female 1 Hx of CHF No 0 Hx of HTN No 0 Hx of Stroke/TIA/or VTE No 0 Hx of Diabetes No 0 Hx of Vascular Disease No 0 Total 2 Treatment Treatment ordered: NONE Reason Anticoagulant not given: Not indicated/[id number] MONICA PATEL MD Dec 03, 2020 12:22
[2020-12-03 18:40] VITALS: BP 137/75
[2020-12-03] MEDS: traZODone 25MG PER 1/2 TABLET PO SCH (21:02)
[2020-12-04 06:42] VITALS: BP 119/64
[2020-12-04] MEDS: ALPRAZolam 0.25 MG TAB PO SCH ×4 (08:12→21:55)
[2020-12-04] MEDS: PANTOPRAZOLE 40MG TAB (PROTONIX) PO SCH (08:13)
[2020-12-04] MEDS: VITAMIN D 1,000 INTERNATIONAL UNITS TABLET PO SCH (08:13)
[2020-12-04] MEDS: FLUoxetine 10 MG CAP PO SCH ×2 (08:13→20:54)
[2020-12-04] MEDS: ASCORBIC ACID 500 MG TAB PO SCH (08:13)
[2020-12-04] MEDS: OMEGA-3 1000MG CAPSULE PO SCH (08:13)
[2020-12-04] MEDS: POLYVINYL ALCOHOL OPHTH SOLN 15 ML(LIQUITEARS) OU SCH ×2 (08:13→20:54)
--- NOTE | 2020-12-04 11:52 | MHIPNPDOC ---
[facility] Progress Note Progress Note DATE OF SERVICE: 12/04/20 HISTORY: Patient is a 74 -year-old , female, who presents to the emergency department with increased depression anxiety complains of poor sleep and excessive crying poor motivation poor appetite. Patient was recently admitted to this facility on November 20, 2020 to November 28, 2020. Patient's complaints today are similar to her last admission and she had reported on this occasion to her friend that she has suicidal ideations. "I just want to give up." Patient found in her room has not been out of the states that she has no motivation to get up today. She appears to be more depressed than her first admission to the hospital on November 20. Patient has a flat and blunted affect and is quite depressed. She is quite fixated on her medications not working for her. PAST PSYCHIATRIC HISTORY: Patient has a history of depression and generalized anxiety disorder. She reports having OCD traits. She had reported a number of stressors many of them were things that she had ruminated about excessively. 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 She had reported a recent loss of a young relative. She has quite a lot of grief and guilt over her father's and her mother's after she had been placed in a shelter (mother 1 month after she was placed in a shelter. She ruminates about her divorce from 20 years ago and currently her ex- has needed her help for postop surgeries. She reported on her last admission that she had no motivation and was not having any enjoyment out of the things that she used to love this past weekend her daughter brought a puppy and she stated that she was very happy for only a few moments and then became very anxious and severely sad. She reports struggling to get up in the morning and she continues to report poor sleep. PER ED REPORT: Pt self-presented to ED with complaints of increased depression symptoms and lack of energy and interest in doing things. PSA met with pt. at bedside who stated she is struggling greatly with her mental health. Pt states that she was recently discharged from the [facility] (11/28/20) and since being discharged, her symptoms have begun to resurface. Pt denies SI/HI but did state "I just cannot live like this anymore." Pt reports that she is sick of the constant up and down of her emotions. Pt states that she cannot identify what has changed since she was discharged. Pt believes that her medication needs to be changed, but does not feel comfortable changing her medication on an outpatient basis because she lives alone and that doesn't feel safe. Pt reports that "her days are so lonely" and "I just can't hit that high happy feeling anymore." Pt was very tearful during evaluation and had very flat affect. At this point pt. does not meet involuntary criteria, but is requesting voluntary admission. For more expansive history please see history and physical dated November 20, 2020 VITAL SIGNS: See below. NEW TEST RESULTS: . CURRENT MEDICATIONS: See below. MENTAL STATUS EXAMINATION: Patient is a -year old female, who is . Speech: Is fluid, conversant, normal rate, tone and volume Language skills are intact Thought processes including: linear and goal oriented Thought content: denies depression and anxiety. Denies suicidal/homicidal ideation, planning or intent. Abstract reasoning, and computation: fair Description of associations: denies, none observed Description of abnormal or psychotic thoughts: denies, none observed. Judgment: fair Insight: fair Orientation: alert and oriented to person, place, time and situation Recent and remote memory: intact Attention span and concentration: good Language: expansive Fund of knowledge: average Mood: Euthymic Mood Affect: reactive DIAGNOSES: Major depressive disorder, recurrent, moderate Generalized anxiety disorder Obsessive-compulsive disorder ASSESSMENT: Patient reports improved sleep. Continues to be very depressed and anxious and mildly tremulous. States that her depression is 8/10. Worries that she may need to have MRI or CT Scan as her father had brain tumor/Hodgkin's. Patient's daughter feels that this may be a reason for her anxiety. Patient denies any symptoms that may point to any brain tumor- no reports of headaches or increased headaches, gait issues, blurred visions, loss of balance or seizures, weakness, or dizziness/vertigo. Patient is reporting her that much of her success on her last hospitalization was staying busy and active on the unit. She reports that she does not have much confidence in Prozac and believes that this needs to change. Patient has only been on Prozac 2-3 months and prior to this she had only stayed on Citalopram 4-5 days before she had report that it was not working. Would like to see the patient improve her sleep regimen before we make changes to Prozac. MANAGEMENT PLAN: Continue Medications. Will discharge when stable in 7-10 days. May consider Zoloft as her daughter had reported good effects with this. TIME SPENT: 25 minutes. Vital Signs Vital Signs Date Time Temp Pulse Resp B/P (MAP) Pulse Ox O2 Delivery O2 Flow Rate FiO2 12/04/20 07:48 Room Air 12/04/20 06:42 99.0 70 18 119/64 (82) 96 Current Medications Current Medications Medications (Trade) Dose Ordered Sig/Burke Route PRN Reason Start Time Stop Time Status Last Admin Dose Admin Acetaminophen (Tylenol Tab) 650 mg Q6HP PRN PO HEADACHE or MILD DISCOMFORT 12/02/20 16:25 Al Hydrox/Mg Hydrox/Simethicone (Mylanta) 30 ml Q4HP PRN PO HEARTBURN/INDIGESTION 12/02/20 16:25 Alprazolam (Xanax) 0.25 mg QID PO 12/03/20 13:00 12/04/20 08:12 Alprazolam (Xanax) 0.25 mg TID PO 12/02/20 21:00 12/03/20 08:51 DC 12/03/20 06:34 Artificial Tears (Akwa Tears) 1 drop BID OU 12/02/20 21:00 12/04/20 08:13 Ascorbic Acid (Vitamin C) 1,000 mg DAILY PO 12/03/20 09:00 12/04/20 08:13 Fish Oil ([place]-3 (1000mg)) 1 cap DAILY PO 12/03/20 09:00 12/04/20 08:13 Fluoxetine HCl (PROzac) 30 mg BID PO 12/03/20 09:00 12/04/20 08:13 Home Med (Med Rec Complete!) ASDIRECTED XX 12/02/20 12:10 12/02/20 12:12 DC Magnesium Hydroxide (Milk Of Magnesia) 30 ml DAILYPRN PRN PO CONSTIPATION 12/02/20 16:25 Pantoprazole Sodium (Protonix) 40 mg DAILY PO 12/03/20 09:00 12/04/20 08:13 Trazodone HCl (Desyrel) 50 mg QHSP PRN PO INSOMNIA 12/02/20 16:25 12/03/20 12:54 DC 12/02/20 21:05 Trazodone HCl (Desyrel) 75 mg QHS PO 12/03/20 21:00 12/03/20 21:02 Vitamin D (Vitamin D) 4,000 units DAILY PO 12/03/20 09:00 12/04/20 08:13 Allergies Coded Allergies: Contrast Media (Verified Adverse Reaction, Intermediate, "seizure", 11/19/20) codeine (Verified Adverse Reaction, Mild, "very sleepy", 11/19/20) PONCHO RICO NP Dec 04, 2020 11:27
[2020-12-04 18:37] VITALS: BP 106/64
[2020-12-04] MEDS: traZODone 25MG PER 1/2 TABLET PO SCH (21:55)
[2020-12-05 06:23] VITALS: BP 119/54
[2020-12-05] MEDS: PANTOPRAZOLE 40MG TAB (PROTONIX) PO SCH (08:39)
[2020-12-05] MEDS: ALPRAZolam 0.25 MG TAB PO SCH ×4 (08:40→20:34)
[2020-12-05] MEDS: VITAMIN D 1,000 INTERNATIONAL UNITS TABLET PO SCH (08:40)
[2020-12-05] MEDS: POLYVINYL ALCOHOL OPHTH SOLN 15 ML(LIQUITEARS) OU SCH ×2 (08:40→20:34)
[2020-12-05] MEDS: OMEGA-3 1000MG CAPSULE PO SCH (08:40)
[2020-12-05] MEDS: FLUoxetine 10 MG CAP PO SCH (08:41)
--- NOTE | 2020-12-05 11:15 | MHIPNPDOC ---
[facility] Progress Note Progress Note DATE OF SERVICE: 12/05/20 HISTORY: Patient is a 74 -year-old , female, who presents to the emergency department with increased depression anxiety complains of poor sleep and excessive crying poor motivation poor appetite. Patient was recently admitted to this facility on November 20, 2020 to November 28, 2020. Patient's complaints today are similar to her last admission and she had reported on this occasion to her friend that she has suicidal ideations. "I just want to give up." Patient found in her room has not been out of the states that she has no motivation to get up today. She appears to be more depressed than her first admission to the hospital on November 20. Patient has a flat and blunted affect and is quite depressed. She is quite fixated on her medications not working for her. PAST PSYCHIATRIC HISTORY: Patient has a history of depression and generalized anxiety disorder. She reports having OCD traits. She had reported a number of stressors many of them were things that she had ruminated about excessively. 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 She had reported a recent loss of a young relative. She has quite a lot of grief and guilt over her father's and her mother's after she had been placed in a shelter (mother 1 month after she was placed in a shelter. She ruminates about her divorce from 20 years ago and currently her ex- has needed her help for postop surgeries. She reported on her last admission that she had no motivation and was not having any enjoyment out of the things that she used to love this past weekend her daughter brought a puppy and she stated that she was very happy for only a few moments and then became very anxious and severely sad. She reports struggling to get up in the morning and she continues to report poor sleep. PER ED REPORT: Pt self-presented to ED with complaints of increased depression symptoms and lack of energy and interest in doing things. PSA met with pt. at bedside who stated she is struggling greatly with her mental health. Pt states that she was recently discharged from the [facility] (11/28/20) and since being discharged, her symptoms have begun to resurface. Pt denies SI/HI but did state "I just cannot live like this anymore." Pt reports that she is sick of the constant up and down of her emotions. Pt states that she cannot identify what has changed since she was discharged. Pt believes that her medication needs to be changed, but does not feel comfortable changing her medication on an outpatient basis because she lives alone and that doesn't feel safe. Pt reports that "her days are so lonely" and "I just can't hit that high happy feeling anymore." Pt was very tearful during evaluation and had very flat affect. At this point pt. does not meet involuntary criteria, but is requesting voluntary admission. For more expansive history please see history and physical dated November 20, 2020 VITAL SIGNS: See below. NEW TEST RESULTS: . CURRENT MEDICATIONS: See below. MENTAL STATUS EXAMINATION: Patient is a -year old female, who is . Speech: Is fluid, conversant, normal rate, tone and volume Language skills are intact Thought processes including: linear and goal oriented Thought content: denies depression and anxiety. Denies suicidal/homicidal ideation, planning or intent. Abstract reasoning, and computation: fair Description of associations: denies, none observed Description of abnormal or psychotic thoughts: denies, none observed. Judgment: fair Insight: fair Orientation: alert and oriented to person, place, time and situation Recent and remote memory: intact Attention span and concentration: good Language: expansive Fund of knowledge: average Mood: Euthymic Mood Affect: reactive DIAGNOSES: Major depressive disorder, recurrent, moderate Generalized anxiety disorder Obsessive-compulsive disorder ASSESSMENT: Pt reports better sleep. Complains of being mildly tremulous in the AM. Discussed Zoloft with medications. She is agreeable to switching. Patient reports continued depression and anxiety. Does not feel stable for discharge. Reports that much of her anxiety stems from her task oriented behaviors which have significantly reduced. 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 Says that she has tasks at home that she wants done, but has to talk her into working slower pace, and reducing the amount that she has to do. She is future oriented today and is attending groups. MANAGEMENT PLAN: Continue Medications. Will discharge when stable in 7-10 days. TIME SPENT: 25 minutes. Vital Signs Vital Signs Date Time Temp Pulse Resp B/P (MAP) Pulse Ox O2 Delivery O2 Flow Rate FiO2 7/1/21 06:23 98.6 67 16 119/54 (75) 95 Room Air Current Medications Current Medications Medications (Trade) Dose Ordered Sig/Burke Route PRN Reason Start Time Stop Time Status Last Admin Dose Admin Acetaminophen (Tylenol Tab) 650 mg Q6HP PRN PO HEADACHE or MILD DISCOMFORT 12/02/20 16:25 Al Hydrox/Mg Hydrox/Simethicone (Mylanta) 30 ml Q4HP PRN PO HEARTBURN/INDIGESTION 12/02/20 16:25 Alprazolam (Xanax) 0.25 mg QID PO 12/03/20 13:00 12/05/20 08:40 Alprazolam (Xanax) 0.25 mg TID PO 12/02/20 21:00 12/03/20 08:51 DC 12/03/20 06:34 Artificial Tears (Akwa Tears) 1 drop BID OU 12/02/20 21:00 12/05/20 08:40 Ascorbic Acid (Vitamin C) 1,000 mg DAILY PO 12/03/20 09:00 12/04/20 08:13 Fish Oil ([place]-3 (1000mg)) 1 cap DAILY PO 12/03/20 09:00 12/05/20 08:40 Fluoxetine HCl (PROzac) 30 mg BID PO 12/03/20 09:00 12/05/20 10:33 DC 12/05/20 08:41 Home Med (Med Rec Complete!) ASDIRECTED XX 12/02/20 12:10 12/02/20 12:12 DC Magnesium Hydroxide (Milk Of Magnesia) 30 ml DAILYPRN PRN PO CONSTIPATION 12/02/20 16:25 Pantoprazole Sodium (Protonix) 40 mg DAILY PO 12/03/20 09:00 12/05/20 08:39 Sertraline HCl (Zoloft) 100 mg QAM PO 12/06/20 09:00 Trazodone HCl (Desyrel) 50 mg QHSP PRN PO INSOMNIA 12/02/20 16:25 12/03/20 12:54 DC 12/02/20 21:05 Trazodone HCl (Desyrel) 75 mg QHS PO 12/03/20 21:00 12/04/20 21:55 Vitamin D (Vitamin D) 4,000 units DAILY PO 12/03/20 09:00 12/05/20 08:40 Allergies Coded Allergies: Contrast Media (Verified Adverse Reaction, Intermediate, "seizure", 11/19/20) codeine (Verified Adverse Reaction, Mild, "very sleepy", 11/19/20) PONCHO RICO NP Dec 05, 2020 11:15
[2020-12-05] MEDS: ASCORBIC ACID 500 MG TAB PO SCH (11:41)
[2020-12-05 17:36] VITALS: BP 105/66
[2020-12-05] MEDS: traZODone 25MG PER 1/2 TABLET PO SCH (21:50)
[2020-12-06 06:26] VITALS: BP 118/78
[2020-12-06] MEDS: VITAMIN D 1,000 INTERNATIONAL UNITS TABLET PO SCH (08:19)
[2020-12-06] MEDS: POLYVINYL ALCOHOL OPHTH SOLN 15 ML(LIQUITEARS) OU SCH ×2 (08:19→21:08)
[2020-12-06] MEDS: ALPRAZolam 0.25 MG TAB PO SCH ×4 (08:19→21:08)
[2020-12-06] MEDS: OMEGA-3 1000MG CAPSULE PO SCH (08:20)
[2020-12-06] MEDS: ASCORBIC ACID 500 MG TAB PO SCH (08:20)
[2020-12-06] MEDS: SERTRALINE 100 MG TAB PO SCH (08:20)
[2020-12-06] MEDS: PANTOPRAZOLE 40MG TAB (PROTONIX) PO SCH (08:20)
--- NOTE | 2020-12-06 13:41 | MHIPNPDOC ---
[facility] Progress Note Progress Note DATE OF SERVICE: 12/05/20 HISTORY: Patient is a 74 -year-old , female, who presents to the emergency department with increased depression anxiety complains of poor sleep and excessive crying poor motivation poor appetite. Patient was recently admitted to this facility on November 20, 2020 to November 28, 2020. Patient's complaints today are similar to her last admission and she had reported on this occasion to her friend that she has suicidal ideations. "I just want to give up." Patient found in her room has not been out of the states that she has no motivation to get up today. She appears to be more depressed than her first admission to the hospital on November 20. Patient has a flat and blunted affect and is quite depressed. She is quite fixated on her medications not working for her. PAST PSYCHIATRIC HISTORY: Patient has a history of depression and generalized anxiety disorder. She reports having OCD traits. She had reported a number of stressors many of them were things that she had ruminated about excessively. 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 She had reported a recent loss of a young relative. She has quite a lot of grief and guilt over her father's and her mother's after she had been placed in a long-term (mother 1 month after she was placed in a long-term. She ruminates about her divorce from 20 years ago and currently her ex- has needed her help for postop surgeries. She reported on her last admission that she had no motivation and was not having any enjoyment out of the things that she used to love this past weekend her daughter brought a puppy and she stated that she was very happy for only a few moments and then became very anxious and severely sad. She reports struggling to get up in the morning and she continues to report poor sleep. PER ED REPORT: Pt self-presented to ED with complaints of increased depression symptoms and lack of energy and interest in doing things. PSA met with pt. at bedside who stated she is struggling greatly with her mental health. Pt states that she was recently discharged from the [facility] (11/28/20) and since being discharged, her symptoms have begun to resurface. Pt denies SI/HI but did state "I just cannot live like this anymore." Pt reports that she is sick of the constant up and down of her emotions. Pt states that she cannot identify what has changed since she was discharged. Pt believes that her medication needs to be changed, but does not feel comfortable changing her medication on an outpatient basis because she lives alone and that doesn't feel safe. Pt reports that "her days are so lonely" and "I just can't hit that high happy feeling anymore." Pt was very tearful during evaluation and had very flat affect. At this point pt. does not meet involuntary criteria, but is requesting voluntary admission. For more expansive history please see history and physical dated November 20, 2020 VITAL SIGNS: See below. NEW TEST RESULTS: . CURRENT MEDICATIONS: See below. MENTAL STATUS EXAMINATION: Patient is a -year old female, who is . Speech: Is fluid, conversant, normal rate, tone and volume Language skills are intact Thought processes including: linear and goal oriented Thought content: denies depression and anxiety. Denies suicidal/homicidal ideation, planning or intent. Abstract reasoning, and computation: fair Description of associations: denies, none observed Description of abnormal or psychotic thoughts: denies, none observed. Judgment: fair Insight: fair Orientation: alert and oriented to person, place, time and situation Recent and remote memory: intact Attention span and concentration: good Language: expansive Fund of knowledge: average Mood: Euthymic Mood Affect: reactive DIAGNOSES: Major depressive disorder, recurrent, moderate Generalized anxiety disorder Obsessive-compulsive disorder ASSESSMENT: States sleep is still good. Reports that she gets easily upset with herself if a project is not done faster or better. States that she did not realize that she had an anxiety disorder but looking back on her life that she was a very anxious person, but that these days she needs to talk herself into be ing calm. Realizes that she is often breathing too hard at home. States that she was often regimented and task oriented. Reported that she often ruminates about projects. Feels that she may have ADD or ADHD, states that she often had difficulty with lectures in school. Patient given CBT Anxiety and Depression Worksheet, education on Obsessive-Compulsive Disorder, also Adult ADHD test to work on over the weekend. MANAGEMENT PLAN: Continue Medications. Discharge pending. TIME SPENT: 25 minutes. Vital Signs Vital Signs Date Time Temp Pulse Resp B/P (MAP) Pulse Ox O2 Delivery O2 Flow Rate FiO2 12/06/20 08:22 Room Air 12/06/20 06:26 97.2 70 16 118/78 (87) 96 Current Medications Current Medications Medications (Trade) Dose Ordered Sig/Burke Route PRN Reason Start Time Stop Time Status Last Admin Dose Admin Acetaminophen (Tylenol Tab) 650 mg Q6HP PRN PO HEADACHE or MILD DISCOMFORT 12/02/20 16:25 Al Hydrox/Mg Hydrox/Simethicone (Mylanta) 30 ml Q4HP PRN PO HEARTBURN/INDIGESTION 12/02/20 16:25 Alprazolam (Xanax) 0.25 mg QID PO 12/03/20 13:00 12/06/20 08:19 Alprazolam (Xanax) 0.25 mg TID PO 12/02/20 21:00 12/03/20 08:51 DC 12/03/20 06:34 Artificial Tears (Akwa Tears) 1 drop BID OU 12/02/20 21:00 12/06/20 08:19 Ascorbic Acid (Vitamin C) 1,000 mg DAILY PO 12/03/20 09:00 12/06/20 08:20 Fish Oil ([place]-3 (1000mg)) 1 cap DAILY PO 12/03/20 09:00 12/06/20 08:20 Fluoxetine HCl (PROzac) 30 mg BID PO 12/03/20 09:00 12/05/20 10:33 DC 12/05/20 08:41 Home Med (Med Rec Complete!) ASDIRECTED XX 12/02/20 12:10 12/02/20 12:12 DC Magnesium Hydroxide (Milk Of Magnesia) 30 ml DAILYPRN PRN PO CONSTIPATION 12/02/20 16:25 Pantoprazole Sodium (Protonix) 40 mg DAILY PO 12/03/20 09:00 12/06/20 08:20 Sertraline HCl (Zoloft) 100 mg QAM PO 12/06/20 09:00 12/06/20 08:20 Trazodone HCl (Desyrel) 50 mg QHSP PRN PO INSOMNIA 12/02/20 16:25 12/03/20 12:54 DC 12/02/20 21:05 Trazodone HCl (Desyrel) 75 mg QHS PO 12/03/20 21:00 12/05/20 21:50 Vitamin D (Vitamin D) 4,000 units DAILY PO 12/03/20 09:00 12/06/20 08:19 Allergies Coded Allergies: Contrast Media (Verified Adverse Reaction, Intermediate, "seizure", 11/19/20) codeine (Verified Adverse Reaction, Mild, "very sleepy", 11/19/20) PONCHO RICO NP Dec 06, 2020 13:41
[2020-12-06 18:22] VITALS: BP 102/56
[2020-12-06] MEDS: traZODone 25MG PER 1/2 TABLET PO SCH (21:08)
[2020-12-07 06:00] VITALS: BP 145/75
[2020-12-07] MEDS: PANTOPRAZOLE 40MG TAB (PROTONIX) PO SCH (07:00)
[2020-12-07] MEDS: POLYVINYL ALCOHOL OPHTH SOLN 15 ML(LIQUITEARS) OU SCH ×2 (08:11→21:01)
[2020-12-07] MEDS: ALPRAZolam 0.25 MG TAB PO SCH ×4 (08:11→21:01)
[2020-12-07] MEDS: ASCORBIC ACID 500 MG TAB PO SCH (08:11)
[2020-12-07] MEDS: SERTRALINE 100 MG TAB PO SCH (08:11)
[2020-12-07] MEDS: OMEGA-3 1000MG CAPSULE PO SCH (08:11)
[2020-12-07] MEDS: VITAMIN D 1,000 INTERNATIONAL UNITS TABLET PO SCH (08:12)
[2020-12-07 16:54] VITALS: BP 109/68
[2020-12-07] MEDS: traZODone 25MG PER 1/2 TABLET PO SCH (21:01)
[2020-12-08] MEDS: PANTOPRAZOLE 40MG TAB (PROTONIX) PO SCH (06:55)
[2020-12-08 07:00] VITALS: BP 113/60
[2020-12-08] MEDS: ASCORBIC ACID 500 MG TAB PO SCH (08:20)
[2020-12-08] MEDS: SERTRALINE 100 MG TAB PO SCH (08:20)
[2020-12-08] MEDS: POLYVINYL ALCOHOL OPHTH SOLN 15 ML(LIQUITEARS) OU SCH ×2 (08:20→20:54)
[2020-12-08] MEDS: ALPRAZolam 0.25 MG TAB PO SCH ×4 (08:20→20:54)
[2020-12-08] MEDS: VITAMIN D 1,000 INTERNATIONAL UNITS TABLET PO SCH (08:21)
[2020-12-08] MEDS: OMEGA-3 1000MG CAPSULE PO SCH (08:21)
[2020-12-08] MEDS: traZODone 25MG PER 1/2 TABLET PO SCH (20:56)
[2020-12-09] MEDS: OMEGA-3 1000MG CAPSULE PO SCH (08:15)
[2020-12-09] MEDS: ASCORBIC ACID 500 MG TAB PO SCH (08:15)
[2020-12-09] MEDS: SERTRALINE 100 MG TAB PO SCH (08:15)
[2020-12-09] MEDS: VITAMIN D 1,000 INTERNATIONAL UNITS TABLET PO SCH (08:15)
[2020-12-09] MEDS: ALPRAZolam 0.25 MG TAB PO SCH ×4 (08:15→20:51)
[2020-12-09] MEDS: PANTOPRAZOLE 40MG TAB (PROTONIX) PO SCH (08:16)
[2020-12-09] MEDS: POLYVINYL ALCOHOL OPHTH SOLN 15 ML(LIQUITEARS) OU SCH ×2 (08:20→20:52)
--- NOTE | 2020-12-09 12:56 | MHIPNPDOC ---
[facility] Progress Note Progress Note DATE OF SERVICE: 12/09/20 HISTORY: Patient is a 74 -year-old , female, who presents to the emergency department with increased depression anxiety complains of poor sleep and excessive crying poor motivation poor appetite. Patient was recently admitted to this facility on November 20, 2020 to November 28, 2020. Patient's complaints today are similar to her last admission and she had reported on this occasion to her friend that she has suicidal ideations. "I just want to give up." Patient found in her room has not been out of the states that she has no motivation to get up today. She appears to be more depressed than her first admission to the hospital on November 20. Patient has a flat and blunted affect and is quite depressed. She is quite fixated on her medications not working for her. PAST PSYCHIATRIC HISTORY: Patient has a history of depression and generalized anxiety disorder. She reports having OCD traits. She had reported a number of stressors many of them were things that she had ruminated about excessively. 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 She had reported a recent loss of a young relative. She has quite a lot of grief and guilt over her father's and her mother's after she had been placed in a correction (mother 1 month after she was placed in a correction. She ruminates about her divorce from 20 years ago and currently her ex- has needed her help for postop surgeries. She reported on her last admission that she had no motivation and was not having any enjoyment out of the things that she used to love this past weekend her daughter brought a puppy and she stated that she was very happy for only a few moments and then became very anxious and severely sad. She reports struggling to get up in the morning and she continues to report poor sleep. PER ED REPORT: Pt self-presented to ED with complaints of increased depression symptoms and lack of energy and interest in doing things. PSA met with pt. at bedside who stated she is struggling greatly with her mental health. Pt states that she was recently discharged from the [facility] (11/28/20) and since being discharged, her symptoms have begun to resurface. Pt denies SI/HI but did state "I just cannot live like this anymore." Pt reports that she is sick of the constant up and down of her emotions. Pt states that she cannot identify what has changed since she was discharged. Pt believes that her medication needs to be changed, but does not feel comfortable changing her medication on an outpatient basis because she lives alone and that doesn't feel safe. Pt reports that "her days are so lonely" and "I just can't hit that high happy feeling anymore." Pt was very tearful during evaluation and had very flat affect. At this point pt. does not meet involuntary criteria, but is requesting voluntary admission. For more expansive history please see history and physical dated November 20, 2020 VITAL SIGNS: See below. NEW TEST RESULTS: . CURRENT MEDICATIONS: See below. MENTAL STATUS EXAMINATION: Patient is a -year old female, who is . Speech: Is fluid, conversant, normal rate, tone and volume Language skills are intact Thought processes including: linear and goal oriented Thought content: reports depression and anxiety. Denies suicidal/homicidal ideation, planning or intent. Abstract reasoning, and computation: fair Description of associations: denies, none observed Description of abnormal or psychotic thoughts: denies, none observed. Judgment: fair Insight: fair Orientation: alert and oriented to person, place, time and situation Recent and remote memory: intact Attention span and concentration: good Language: expansive Fund of knowledge: average Mood: Depressed Mood Affect: Flat DIAGNOSES: Major depressive disorder, recurrent, moderate Generalized anxiety disorder Obsessive-compulsive disorder ASSESSMENT: Patient is alert and oriented. Patient was tearful many times during her session. She spoke about about a time last year when she noticed depressive symptoms. She had reported that her nephew was diagnosed with ALS and her sister was able to reach him in [facility] before he had passed during COVID. She states that this time for her sister really set the ominous grayness to her mood. She had also talked about another nephew that committed suicide, she postulates that there may have been some scandal that he was avoiding by taking his life. She reports that she often ruminates about being a burden to her children, worries about her finances and her ability to maintain her home. She worries that her children will have to provider for her financially and this is a very big worry for her. She readily admits that she "worries" often about various things. Over the weekend she was tasked with an ADHD test which she tested low. She feels that the Zoloft is effective but wonders if there needs to be an increase. Asked patient to think about spikes in her anxiety symptoms during the day and whether she feels better anxiety guardado. She ruminates excessively about her sisters, the [facility], the finances of the [facility], her children and grandchildren. She feels confident that she has good supports but worries that she is not quite stable for discharge MANAGEMENT PLAN: Continue Medications. Will discharge when stable. TIME SPENT: 60 minutes. Supportive Therapy 11:30-12:30 Vital Signs Vital Signs Date Time Temp Pulse Resp B/P (MAP) Pulse Ox O2 Delivery O2 Flow Rate FiO2 12/08/20 08:27 Room Air 12/08/20 07:00 97.8 61 16 113/60 (77) 95 Current Medications Current Medications Medications (Trade) Dose Ordered Sig/Burke Route PRN Reason Start Time Stop Time Status Last Admin Dose Admin Acetaminophen (Tylenol Tab) 650 mg Q6HP PRN PO HEADACHE or MILD DISCOMFORT 12/02/20 16:25 Al Hydrox/Mg Hydrox/Simethicone (Mylanta) 30 ml Q4HP PRN PO HEARTBURN/INDIGESTION 12/02/20 16:25 Alprazolam (Xanax) 0.25 mg QID PO 12/03/20 13:00 12/09/20 08:15 Alprazolam (Xanax) 0.25 mg TID PO 12/02/20 21:00 12/03/20 08:51 DC 12/03/20 06:34 Artificial Tears (Akwa Tears) 1 drop BID OU 12/02/20 21:00 12/09/20 08:20 Ascorbic Acid (Vitamin C) 1,000 mg DAILY PO 12/03/20 09:00 12/09/20 08:15 Fish Oil ([place]-3 (1000mg)) 1 cap DAILY PO 12/03/20 09:00 12/09/20 08:15 Fluoxetine HCl (PROzac) 30 mg BID PO 12/03/20 09:00 12/05/20 10:33 DC 12/05/20 08:41 Home Med (Med Rec Complete!) ASDIRECTED XX 12/02/20 12:10 12/02/20 12:12 DC Magnesium Hydroxide (Milk Of Magnesia) 30 ml DAILYPRN PRN PO CONSTIPATION 12/02/20 16:25 Pantoprazole Sodium (Protonix) 40 mg DAILY PO 12/03/20 09:00 12/06/20 13:09 DC 12/06/20 08:20 Pantoprazole Sodium (Protonix) 40 mg DAILY@0700 PO 12/07/20 07:00 12/09/20 08:16 Sertraline HCl (Zoloft) 100 mg QAM PO 12/06/20 09:00 12/09/20 08:15 Trazodone HCl (Desyrel) 50 mg QHSP PRN PO INSOMNIA 12/02/20 16:25 12/03/20 12:54 DC 12/02/20 21:05 Trazodone HCl (Desyrel) 75 mg QHS PO 12/03/20 21:00 12/08/20 20:56 Vitamin D (Vitamin D) 4,000 units DAILY PO 12/03/20 09:00 12/09/20 08:15 Allergies Coded Allergies: Contrast Media (Verified Adverse Reaction, Intermediate, "seizure", 11/19/20) codeine (Verified Adverse Reaction, Mild, "very sleepy", 11/19/20) PONCHO RICO NP Dec 09, 2020 12:47
[2020-12-09] MEDS: traZODone 25MG PER 1/2 TABLET PO SCH (20:52)
[2020-12-10] MEDS: PANTOPRAZOLE 40MG TAB (PROTONIX) PO SCH (05:49)
[2020-12-10 06:50] VITALS: BP 97/55
[2020-12-10] MEDS: VITAMIN D 1,000 INTERNATIONAL UNITS TABLET PO SCH (08:30)
[2020-12-10] MEDS: SERTRALINE 100 MG TAB PO SCH (08:30)
[2020-12-10] MEDS: POLYVINYL ALCOHOL OPHTH SOLN 15 ML(LIQUITEARS) OU SCH ×2 (08:31→21:09)
[2020-12-10] MEDS: OMEGA-3 1000MG CAPSULE PO SCH (08:31)
[2020-12-10] MEDS: ALPRAZolam 0.25 MG TAB PO SCH ×4 (08:31→21:09)
[2020-12-10] MEDS: ASCORBIC ACID 500 MG TAB PO SCH (08:31)
[2020-12-10] MEDS ORDERED: QUEtiapine FUMARATE 50MG TAB PO ONE (12:55)
--- NOTE | 2020-12-10 14:23 | MHIPNPDOC ---
[facility] Progress Note Progress Note DATE OF SERVICE: 12/10/20 HISTORY: Patient is a 74 -year-old , female, who presents to the emergency department with increased depression anxiety complains of poor sleep and excessive crying poor motivation poor appetite. Patient was recently admitted to this facility on November 20, 2020 to November 28, 2020. Patient's complaints today are similar to her last admission and she had reported on this occasion to her friend that she has suicidal ideations. "I just want to give up." Patient found in her room has not been out of the states that she has no motivation to get up today. She appears to be more depressed than her first admission to the hospital on November 20. Patient has a flat and blunted affect and is quite depressed. She is quite fixated on her medications not working for her. PAST PSYCHIATRIC HISTORY: Patient has a history of depression and generalized anxiety disorder. She reports having OCD traits. She had reported a number of stressors many of them were things that she had ruminated about excessively. 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 She had r eported a recent loss of a young relative. She has quite a lot of grief and guilt over her father's and her mother's after she had been placed in a half-way (mother 1 month after she was placed in a half-way. She ruminates about her divorce from 20 years ago and currently her ex- has needed her help for postop surgeries. She reported on her last admission that she had no motivation and was not having any enjoyment out of the things that she used to love this past weekend her daughter brought a puppy and she stated that she was very happy for only a few moments and then became very anxious and severely sad. She reports struggling to get up in the morning and she continues to report poor sleep. PER ED REPORT: Pt self-presented to ED with complaints of increased depression symptoms and lack of energy and interest in doing things. PSA met with pt. at bedside who stated she is struggling greatly with her mental health. Pt states that she was recently discharged from the [facility] (11/28/20) and since being discharged, her symptoms have begun to resurface. Pt denies SI/HI but did state "I just cannot live like this anymore." Pt reports that she is sick of the constant up and down of her emotions. Pt states that she cannot identify what has changed since she was discharged. Pt believes that her medication needs to be changed, but does not feel comfortable changing her medication on an outpatient basis because she lives alone and that doesn't feel safe. Pt reports that "her days are so lonely" and "I just can't hit that high happy feeling anymore." Pt was very tearful during evaluation and had very flat affect. At this point pt. does not meet involuntary criteria, but is requesting voluntary admission. For more expansive history please see history and physical dated November 20, 2020 VITAL SIGNS: See below. NEW TEST RESULTS: . CURRENT MEDICATIONS: See below. MENTAL STATUS EXAMINATION: Patient is a 74 -year-old , female, who presents to the emergency department with increased depression anxiety complains of poor sleep and excessive crying poor motivation. She is well-kempt in hygiene and grooming, her eye contact is maintained, she is alert and oriented, pleasant and cooperative. Speech: Is fluid, conversant, normal rate, tone and volume Language skills are intact Thought processes including: linear and goal oriented Thought content: reports decreasing depression and anxiety. Denies suicidal/homicidal ideation, planning or intent. Abstract reasoning, and computation: fair Description of associations: denies, none observed Description of abnormal or psychotic thoughts: denies, none observed. Judgment: good Insight: good Orientation: alert and oriented to person, place, time and situation Recent and remote memory: intact Attention span and concentration: good Language: expansive Fund of knowledge: average Mood: Euthymic Mood Affect: Full DIAGNOSES: Major depressive disorder, recurrent, moderate Generalized anxiety disorder Obsessive-compulsive disorder ASSESSMENT: Complains of being shaky this morning, which is not visibly noticeable now. She reports that she worries about returning home and slowing h er racing thoughts. She states that because of her lifestyle of being on the go, she has difficulty not wanting to put more on her list of things to do. Discussed with patient to think about successful discharge plannin) Have a family member stay with her for at least one week, 2) Have activities that are anxiety reducing i.e. Yoga, Mindfulness, Gardening, Hobbies, 3) Ask friends to be with her, 4) Be agreeable to asking for help when she is anxious. Patient agrees that she would like to have a successful discharge. Encouraged patient to think about discharge this week. She feels she needs an increase in Zoloft. Patient is ordered Zoloft 125 mg Patient reports that she has racing thoughts, but this appears to be more relating to her anxiety disorder vs any bipolar symptoms. MANAGEMENT PLAN: Continue Medications. Will discharge when stable this week. TIME SPENT:25 minutes Vital Signs Vital Signs Date Time Temp Pulse Resp B/P (MAP) Pulse Ox O2 Delivery O2 Flow Rate FiO2 12/10/20 06:50 98.5 72 20 97/55 (69) 95 Room Air Current Medications Current Medications Medications (Trade) Dose Ordered Sig/Burke Route PRN Reason Start Time Stop Time Status Last Admin Dose Admin Acetaminophen (Tylenol Tab) 650 mg Q6HP PRN PO HEADACHE or MILD DISCOMFORT 12/02/20 16:25 Al Hydrox/Mg Hydrox/Simethicone (Mylanta) 30 ml Q4HP PRN PO HEARTBURN/INDIGESTION 12/02/20 16:25 Alprazolam (Xanax) 0.25 mg QID PO 12/03/20 13:00 12/10/20 08:31 Alprazolam (Xanax) 0.25 mg TID PO 12/02/20 21:00 12/03/20 08:51 DC 12/03/20 06:34 Artificial Tears (Akwa Tears) 1 drop BID OU 12/02/20 21:00 12/10/20 08:31 Ascorbic Acid (Vitamin C) 1,000 mg DAILY PO 12/03/20 09:00 12/10/20 08:31 Fish Oil ([place]-3 (1000mg)) 1 cap DAILY PO 12/03/20 09:00 12/10/20 08:31 Fluoxetine HCl (PROzac) 30 mg BID PO 12/03/20 09:00 12/05/20 10:33 DC 12/05/20 08:41 Home Med (Med Rec Complete!) ASDIRECTED XX 12/02/20 12:10 12/02/20 12:12 DC Magnesium Hydroxide (Milk Of Magnesia) 30 ml DAILYPRN PRN PO CONSTIPATION 12/02/20 16:25 Pantoprazole Sodium (Protonix) 40 mg DAILY PO 12/03/20 09:00 12/06/20 13:09 DC 12/06/20 08:20 Pantoprazole Sodium (Protonix) 40 mg DAILY@0700 PO 12/07/20 07:00 12/10/20 05:49 Quetiapine Fumarate (SEROquel) 50 mg DAILY PO 12/11/20 09:00 12/10/20 12:56 DC Sertraline HCl (Zoloft) 100 mg QAM PO 12/06/20 09:00 12/10/20 08:30 Trazodone HCl (Desyrel) 50 mg QHSP PRN PO INSOMNIA 12/02/20 16:25 12/03/20 12:54 DC 12/02/20 21:05 Trazodone HCl (Desyrel) 75 mg QHS PO 12/03/20 21:00 12/09/20 20:52 Vitamin D (Vitamin D) 4,000 units DAILY PO 12/03/20 09:00 12/10/20 08:30 Allergies Coded Allergies: Contrast Media (Verified Adverse Reaction, Intermediate, "seizure", 11/19/20) codeine (Verified Adverse Reaction, Mild, "very sleepy", 11/19/20) PONCHO RICO NP Dec 10, 2020 13:45
[2020-12-10 18:30] VITALS: BP 125/64
[2020-12-10] MEDS: traZODone 25MG PER 1/2 TABLET PO SCH (21:10)
[2020-12-11] MEDS: PANTOPRAZOLE 40MG TAB (PROTONIX) PO SCH (06:14)
[2020-12-11 06:27] VITALS: BP 121/66
[2020-12-11] MEDS: POLYVINYL ALCOHOL OPHTH SOLN 15 ML(LIQUITEARS) OU SCH ×2 (08:20→21:14)
[2020-12-11] MEDS: SERTRALINE HCL 50 MG TAB PO SCH (08:21)
[2020-12-11] MEDS: ASCORBIC ACID 500 MG TAB PO SCH (08:22)
[2020-12-11] MEDS: OMEGA-3 1000MG CAPSULE PO SCH (08:22)
[2020-12-11] MEDS: VITAMIN D 1,000 INTERNATIONAL UNITS TABLET PO SCH (08:23)
[2020-12-11] MEDS: ALPRAZolam 0.25 MG TAB PO SCH ×4 (08:23→21:14)
[2020-12-11] MEDS ORDERED: QUEtiapine FUMARATE 50MG TAB PO SCH (09:00)
--- NOTE | 2020-12-11 15:19 | MHIPNPDOC ---
[facility] Progress Note Progress Note DATE OF SERVICE: 12/11/20 HISTORY: Patient is a 74 -year-old , female, who presents to the emergency department with increased depression anxiety complains of poor sleep and excessive crying poor motivation poor appetite. Patient was recently admitted to this facility on November 20, 2020 to November 28, 2020. Patient's complaints today are similar to her last admission and she had reported on this occasion to her friend that she has suicidal ideations. "I just want to give up." Patient found in her room has not been out of the states that she has no motivation to get up today. She appears to be more depressed than her first admission to the hospital on November 20. Patient has a flat and blunted affect and is quite depressed. She is quite fixated on her medications not working for her. PAST PSYCHIATRIC HISTORY: Patient has a history of depression and generalized anxiety disorder. She reports having OCD traits. She had reported a number of stressors many of them were things that she had ruminated about excessively. 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 She had r eported a recent loss of a young relative. She has quite a lot of grief and guilt over her father's and her mother's after she had been placed in a chcf (mother 1 month after she was placed in a chcf. She ruminates about her divorce from 20 years ago and currently her ex- has needed her help for postop surgeries. She reported on her last admission that she had no motivation and was not having any enjoyment out of the things that she used to love this past weekend her daughter brought a puppy and she stated that she was very happy for only a few moments and then became very anxious and severely sad. She reports struggling to get up in the morning and she continues to report poor sleep. PER ED REPORT: Pt self-presented to ED with complaints of increased depression symptoms and lack of energy and interest in doing things. PSA met with pt. at bedside who stated she is struggling greatly with her mental health. Pt states that she was recently discharged from the [facility] (11/28/20) and since being discharged, her symptoms have begun to resurface. Pt denies SI/HI but did state "I just cannot live like this anymore." Pt reports that she is sick of the constant up and down of her emotions. Pt states that she cannot identify what has changed since she was discharged. Pt believes that her medication needs to be changed, but does not feel comfortable changing her medication on an outpatient basis because she lives alone and that doesn't feel safe. Pt reports that "her days are so lonely" and "I just can't hit that high happy feeling anymore." Pt was very tearful during evaluation and had very flat affect. At this point pt. does not meet involuntary criteria, but is requesting voluntary admission. For more expansive history please see history and physical dated November 20, 2020 VITAL SIGNS: See below. NEW TEST RESULTS: . CURRENT MEDICATIONS: See below. MENTAL STATUS EXAMINATION: Patient is a 74 -year-old , female, who presents to the emergency department with increased depression anxiety complains of poor sleep and excessive crying poor motivation. She is well-kempt in hygiene and grooming, her eye contact is maintained, she is alert and oriented, pleasant and cooperative. Speech: Is fluid, conversant, normal rate, tone and volume Language skills are intact Thought processes including: linear and goal oriented Thought content: reports decreasing depression and increased anxiety today. Denies suicidal/homicidal ideation, planning or intent. Abstract reasoning, and computation: fair Description of associations: denies, none observed Description of abnormal or psychotic thoughts: denies, none observed. Judgment: good Insight: good Orientation: alert and oriented to person, place, time and situation Recent and remote memory: intact Attention span and concentration: good Language: expansive Fund of knowledge: average Mood: Euthymic Mood Affect: Full DIAGNOSES: Major depressive disorder, recurrent, moderate Generalized anxiety disorder Obsessive-compulsive disorder ASSESSMENT: Feels antsy, states "one minute looking forward to going home and then I am nervous about everything waiting for me." Worries about appointments that she had missed because she was re-admitted. She continues to worry about the medications "being enough." Discussed that medications are at it's optimum for her current presentation and much of the work needed to lower her anxiety is supportive care from her friends, exercises, positive thinking techniques and relaxation techniques. Discussed and demonstrated the positive thinking and relaxation techniques. MANAGEMENT PLAN: Continue Medications. Will discharge on Wednesday. TIME SPENT: 45 minutes. [id number], Cognitive Behavioral Therapy (Positive Thinking vs Negative Thinking Exercises and 10 Minute Guided Imagery) Vital Signs Vital Signs Date Time Temp Pulse Resp B/P (MAP) Pulse Ox O2 Delivery O2 Flow Rate FiO2 12/11/20 06:27 98.8 60 18 121/66 (84) 96 Room Air Current Medications Current Medications Medications (Trade) Dose Ordered Sig/Burke Route PRN Reason Start Time Stop Time Status Last Admin Dose Admin Acetaminophen (Tylenol Tab) 650 mg Q6HP PRN PO HEADACHE or MILD DISCOMFORT 12/02/20 16:25 Al Hydrox/Mg Hydrox/Simethicone (Mylanta) 30 ml Q4HP PRN PO HEARTBURN/INDIGESTION 12/02/20 16:25 Alprazolam (Xanax) 0.25 mg QID PO 12/03/20 13:00 12/11/20 12:47 Alprazolam (Xanax) 0.25 mg TID PO 12/02/20 21:00 12/03/20 08:51 DC 12/03/20 06:34 Artificial Tears (Akwa Tears) 1 drop BID OU 12/02/20 21:00 12/11/20 08:20 Ascorbic Acid (Vitamin C) 1,000 mg DAILY PO 12/03/20 09:00 12/11/20 08:22 Fish Oil ([place]-3 (1000mg)) 1 cap DAILY PO 12/03/20 09:00 12/11/20 08:22 Fluoxetine HCl (PROzac) 30 mg BID PO 12/03/20 09:00 12/05/20 10:33 DC 12/05/20 08:41 Home Med (Med Rec Complete!) ASDIRECTED XX 12/02/20 12:10 12/02/20 12:12 DC Magnesium Hydroxide (Milk Of Magnesia) 30 ml DAILYPRN PRN PO CONSTIPATION 12/02/20 16:25 Pantoprazole Sodium (Protonix) 40 mg DAILY PO 12/03/20 09:00 12/06/20 13:09 DC 12/06/20 08:20 Pantoprazole Sodium (Protonix) 40 mg DAILY@0700 PO 12/07/20 07:00 12/11/20 06:14 Quetiapine Fumarate (SEROquel) 50 mg DAILY PO 12/11/20 09:00 12/10/20 12:56 DC Sertraline HCl (Zoloft) 100 mg QAM PO 12/06/20 09:00 12/10/20 14:04 DC 12/10/20 08:30 Sertraline HCl (Zoloft) 125 mg QAM PO 12/11/20 09:00 12/11/20 08:21 Trazodone HCl (Desyrel) 50 mg QHSP PRN PO INSOMNIA 12/02/20 16:25 12/03/20 12:54 DC 12/02/20 21:05 Trazodone HCl (Desyrel) 75 mg QHS PO 12/03/20 21:00 12/10/20 21:10 Vitamin D (Vitamin D) 4,000 units DAILY PO 12/03/20 09:00 12/11/20 08:23 Allergies Coded Allergies: Contrast Media (Verified Adverse Reaction, Intermediate, "seizure", 11/19/20) codeine (Verified Adverse Reaction, Mild, "very sleepy", 11/19/20) PONCHO RICO [employer] Dec 11, 2020 15:19
[2020-12-11 19:16] VITALS: BP 142/73
[2020-12-11] MEDS: traZODone 25MG PER 1/2 TABLET PO SCH (21:13)
[2020-12-12] MEDS: PANTOPRAZOLE 40MG TAB (PROTONIX) PO SCH (06:27)
[2020-12-12 06:44] VITALS: BP 140/64
[2020-12-12] MEDS: PILL CUTTER 1 EACH XX PRN (08:25)
[2020-12-12] MEDS: ASCORBIC ACID 500 MG TAB PO SCH (08:25)
[2020-12-12] MEDS: POLYVINYL ALCOHOL OPHTH SOLN 15 ML(LIQUITEARS) OU SCH ×2 (08:25→20:53)
[2020-12-12] MEDS: VITAMIN D 1,000 INTERNATIONAL UNITS TABLET PO SCH (08:25)
[2020-12-12] MEDS: OMEGA-3 1000MG CAPSULE PO SCH (08:25)
[2020-12-12] MEDS: SERTRALINE HCL 50 MG TAB PO SCH (08:26)
[2020-12-12] MEDS: ALPRAZolam 0.25 MG TAB PO SCH ×4 (08:26→20:53)
[2020-12-12] MEDS ORDERED: ZOLO100T PO (13:01)
[2020-12-12] MEDS ORDERED: ALPR0.25 PO (13:01)
[2020-12-12] MEDS ORDERED: TRAZ-252 PO (13:01)
[2020-12-12] MEDS ORDERED: ZOLO25TA PO (13:01)
--- NOTE | 2020-12-12 13:11 | MHIPNPDOC ---
[facility] Progress Note Progress Note DATE OF SERVICE: 12/12/20 HISTORY: HISTORY: Patient is a 74 -year-old , female, who presents to the emergency department with increased depression anxiety complains of poor sleep and excessive crying poor motivation poor appetite. Patient was recently admitted to this facility on November 20, 2020 to November 28, 2020. Patient's complaints today are similar to her last admission and she had reported on this occasion to her friend that she has suicidal ideations. "I just want to give up." Patient found in her room has not been out of the states that she has no motivation to get up today. She appears to be more depressed than her first admission to the hospital on November 20. Patient has a flat and blunted affect and is quite depressed. She is quite fixated on her medications not working for her. PAST PSYCHIATRIC HISTORY: Patient has a history of depression and generalized anxiety disorder. She reports having OCD traits. She had reported a number of stressors many of them were things that she had ruminated about excessively. 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 She had reported a recent loss of a young relative. She has quite a lot of grief and guilt over her father's and her mother's after she had been placed in a mcc (mother 1 month after she was placed in a m[facility]. She ruminates about her divorce from 20 years ago and currently her ex- has needed her help for postop surgeries. She reported on her last admission that she had no motivation and was not having any enjoyment out of the things that she used to love this past weekend her daughter brought a puppy and she stated that she was very happy for only a few moments and then became very anxious and severely sad. She reports struggling to get up in the morning and she continues to report poor sleep. PER ED REPORT: Pt self-presented to ED with complaints of increased depression symptoms and lack of energy and interest in doing things. PSA met with pt. at bedside who stated she is struggling greatly with her mental health. Pt states that she was recently discharged from the [facility] (11/28/20) and since being discharged, her symptoms have begun to resurface. Pt denies SI/HI but did state "I just cannot live like this anymore." Pt reports that she is sick of the constant up and down of her emotions. Pt states that she cannot identify what has changed since she was discharged. Pt believes that her medication needs to be changed, but does not feel comfortable changing her medication on an outpatient basis because she lives alone and that doesn't feel safe. Pt reports that "her days are so lonely" and "I just can't hit that high happy feeling anymore." Pt was very tearful during evaluation and had very flat affect. At this point pt. does not meet involuntary criteria, but is requesting voluntary admission. For more expansive history please see history and physical dated November 20, 2020 VITAL SIGNS: See below. NEW TEST RESULTS: . CURRENT MEDICATIONS: See below. MENTAL STATUS EXAMINATION: Patient is a 74 -year-old , female, who presents to the emergency department with increased depression anxiety complains of poor sleep and excessive crying poor motivation. She is well-kempt in hygiene and grooming, her eye contact is maintained, she is alert and oriented, pleasant and cooperative. Speech: Is fluid, conversant, normal rate, tone and volume Language skills are intact Thought processes including: linear and goal oriented Thought content: reports decreasing depression and increased anxiety today. Denies suicidal/homicidal ideation, planning or intent. Abstract reasoning, and computation: fair Description of associations: denies, none observed Description of abnormal or psychotic thoughts: denies, none observed. Judgment: good Insight: good Orientation: alert and oriented to person, place, time and situation Recent and remote memory: intact Attention span and concentration: good Language: expansive Fund of knowledge: average Mood: Euthymic Mood Affect: Full DIAGNOSES: Major depressive disorder, recurrent, moderate Generalized anxiety disorder Obsessive-compulsive disorder ASSESSMENT: Reports less depression and anxiety, but has elevating worries and anxiety about being alone. Have instructed patient to tell her family to stay with her for a few weeks to help with her anxiety as she lives alone. I believe that if the patient does not have someone with her upon returning to her home, she will return to the hospital. Patient has learned many positive coping skills: Marc Chi, Yoga, Guided Imagery, Positive Thinking Skills, Exercise, Relaxation Techniques and we have increased her Xanax back to 0.25 mg four times daily and switched the Prozac to Zoloft 125 mg daily. She reports this to be effective. During the interview, she reported some concerns that she has: 1) Balance, 2) Hearing loss. Encouraged patient to see her PCP for both and consideration of PT for balance improvement. Patient states that she felt very anxious earlier hearing negative peers, also felt moderately overwhelmed with some paperwork for discharge tomorrow - patient states, "I had to do some self- talking to tell myself these three things can be done and I don't have to worry about it." Patient has a long history of obsessive thinking with tasks. MANAGEMENT PLAN: Continue Medications. Will discharge tomorrow . TIME SPENT: 25 minutes. Vital Signs Vital Signs Date Time Temp Pulse Resp B/P (MAP) Pulse Ox O2 Delivery O2 Flow Rate FiO2 12/12/20 06:44 97.1 65 18 140/64 (89) 95 Room Air Current Medications Current Medications Medications (Trade) Dose Ordered Sig/Burke Route PRN Reason Start Time Stop Time Status Last Admin Dose Admin Acetaminophen (Tylenol Tab) 650 mg Q6HP PRN PO HEADACHE or MILD DISCOMFORT 12/02/20 16:25 Al Hydrox/Mg Hydrox/Simethicone (Mylanta) 30 ml Q4HP PRN PO HEARTBURN/INDIGESTION 12/02/20 16:25 Alprazolam (Xanax) 0.25 mg QID PO 12/03/20 13:00 12/12/20 08:26 Alprazolam (Xanax) 0.25 mg TID PO 12/02/20 21:00 12/03/20 08:51 DC 12/03/20 06:34 Artificial Tears (Akwa Tears) 1 drop BID OU 12/02/20 21:00 12/12/20 08:25 Ascorbic Acid (Vitamin C) 1,000 mg DAILY PO 12/03/20 09:00 12/12/20 08:25 Fish Oil ([place]-3 (1000mg)) 1 cap DAILY PO 12/03/20 09:00 12/12/20 08:25 Fluoxetine HCl (PROzac) 30 mg BID PO 12/03/20 09:00 12/05/20 10:33 DC 12/05/20 08:41 Home Med (Med Rec Complete!) ASDIRECTED XX 12/02/20 12:10 12/02/20 12:12 DC Magnesium Hydroxide (Milk Of Magnesia) 30 ml DAILYPRN PRN PO CONSTIPATION 12/02/20 16:25 Pantoprazole Sodium (Protonix) 40 mg DAILY PO 12/03/20 09:00 12/06/20 13:09 DC 12/06/20 08:20 Pantoprazole Sodium (Protonix) 40 mg DAILY@0700 PO 12/07/20 07:00 12/12/20 06:27 Quetiapine Fumarate (SEROquel) 50 mg DAILY PO 12/11/20 09:00 12/10/20 12:56 DC Sertraline HCl (Zoloft) 100 mg QAM PO 12/06/20 09:00 12/10/20 14:04 DC 12/10/20 08:30 Sertraline HCl (Zoloft) 125 mg QAM PO 12/11/20 09:00 12/12/20 08:26 Trazodone HCl (Desyrel) 50 mg QHSP PRN PO INSOMNIA 12/02/20 16:25 12/03/20 12:54 DC 12/02/20 21:05 Trazodone HCl (Desyrel) 75 mg QHS PO 12/03/20 21:00 12/11/20 21:13 Vitamin D (Vitamin D) 4,000 units DAILY PO 12/03/20 09:00 12/12/20 08:25 Allergies Coded Allergies: Contrast Media (Verified Adverse Reaction, Intermediate, "seizure", 11/19/20) codeine (Verified Adverse Reaction, Mild, "very sleepy", 11/19/20) PONCHO RICO NP Dec 12, 2020 13:11
[2020-12-12 17:18] VITALS: BP 134/73
[2020-12-12] MEDS: traZODone 25MG PER 1/2 TABLET PO SCH (20:54)
[2020-12-13 06:00] VITALS: BP 108/56
[2020-12-13] MEDS: PANTOPRAZOLE 40MG TAB (PROTONIX) PO SCH (06:20)
[2020-12-13] MEDS: OMEGA-3 1000MG CAPSULE PO SCH (08:08)
[2020-12-13] MEDS: PILL CUTTER 1 EACH XX PRN (08:08)
[2020-12-13] MEDS: POLYVINYL ALCOHOL OPHTH SOLN 15 ML(LIQUITEARS) OU SCH (08:08)
[2020-12-13] MEDS: VITAMIN D 1,000 INTERNATIONAL UNITS TABLET PO SCH (08:08)
[2020-12-13] MEDS: ASCORBIC ACID 500 MG TAB PO SCH (08:08)
[2020-12-13] MEDS: ALPRAZolam 0.25 MG TAB PO SCH ×2 (08:09→13:12)
[2020-12-13] MEDS: SERTRALINE HCL 50 MG TAB PO SCH (08:10)
--- NOTE | 2020-12-13 11:20 | MHDSPDOC ---
[facility] [place] Discharge Summary Discharge Summary DATE OF ADMISSION: Dec 02, 2020 at 16:21 DATE OF DISCHARGE: December 13, 2020 at 1106 DISCHARGE DIAGNOSES: Major depressive disorder, recurrent, moderate Generalized anxiety disorder Obsessive-compulsive personality disorder REASON FOR ADMISSION: : Patient is a 74 -year-old , female, who presents to the emergency department with increased depression anxiety complains of poor sleep and excessive crying poor motivation poor appetite. Patient was recently admitted to this facility on November 20, 2020 to November 28, 2020. Patient's complaints today are similar to her last admission and she had reported on this occasion to her friend that she has suicidal ideations. "I just want to give up." Patient found in her room has not been out of the states that she has no motivation to get up today. She appears to be more depressed than her first admission to the hospital on November 20. Patient has a flat and blunted affect and is quite depressed. She is quite fixated on her medications not working for her. PAST PSYCHIATRIC HISTORY: Patient has a history of depression and generalized anxiety disorder. She reports having OCD traits. She had reported a number of stressors many of them were things that she had ruminated about excessively. 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 She had reported a recent loss of a young relative. She has quite a lot of grief and guilt over her father's and her mother's after she had been placed in a shelter (mother 1 month after she was placed in a shelter. She ruminates about her divorce from 20 years ago and currently her ex- has needed her help for postop surgeries. She reported on her last admission that she had no motivation and was not having any enjoyment out of the things that she used to love this past weekend her daughter brought a puppy and she stated that she was very happy for only a few moments and then became very anxious and severely sad. She reports struggling to get up in the morning and she continues to report poor sleep. PER ED REPORT: Pt self-presented to ED with complaints of increased depression symptoms and lack of energy and interest in doing things. PSA met with pt. at bedside who stated she is struggling greatly with her mental health. Pt states that she was recently discharged from the [facility] (6/24/21) and since being discharged, her symptoms have begun to resurface. Pt denies SI/HI but did state "I just cannot live like this anymore." Pt reports that she is sick of the constant up and down of her emotions. Pt states that she cannot identify what has changed since she was discharged. Pt believes that her medication needs to be changed, but does not feel comfortable changing her medication on an outpatient basis because she lives alone and that doesn't feel safe. Pt reports that "her days are so lonely" and "I just can't hit that high happy feeling anymore." Pt was very tearful during evaluation and had very flat affect. At this point pt. does not meet involuntary criteria, but is requesting voluntary admission. VITAL SIGNS: See below. CONSULTANTS INVOLVED: See Medical H + P by Hospitalist VITAL SIGNS: See below. TREATMENT AND PROGRESS ON THE UNIT: Patient was admitted to the [facility] on a 9.39 legal status he was afforded the following treatment modalities: 1) Individual Therapy 2) Group Therapy 3) Medication Management 4) Milieu Therapy 5) Safe Environment HOSPITAL COURSE: Patient was admitted to [facility] on a voluntary status. Patient was recently admitted and discharged from this facility on November 20, 2020 to November 28, 2020. She had reported feeling of being overwhelmed, anxiety, nervousness, being tremulous, increased depressive symptoms and passive suicidal ideations. Patient was switched from Prozac to Zoloft to 125 mg with good effective. Her alprazolam was increased to 0.25 mg four times daily which she had requested be reduced on her last admission. She also had good effects of Trazodone at 75 mg HS. Patient was attentive in groups and her individual therapy session with this provider included: supportive therapy, relaxation therapy, cognitive behavioral therapy, and guided imagery. Patient's anxiety vacillated from low to moderate throughout her hospitalization. She reported that she felt better on Zoloft. Although in today's interview she feels that there needs to be an increase in Zoloft today on the day of her discharge. I reviewed with the patient that her anti-depression medication does not need to be increased because what she is feeling is anxiety versus a decrease in her depression. Patient has a long history of being very obsessive about her ability to do things at home. She ruminates about her ability to be useful. Ruminated about her loss of hearing, ability to do things on her own, and feelings of being overwhelmed when she does not finish her tasks. This provider has talked to her intensely about her anxiety with regards to tasks, work around the house, her work with [employer] and feelings of being useful. Patient states that she wants to join yoga classes, find franc chi classes, learn calligraphy, learn how to use YouTube for further calligraphy classes, and being with her friends to help reduce her anxiety and feelings of nervousness. Patient was receptive to recommendations that she has a friend or family member stay with her for several weeks post discharge in order to help reduce her anxieties. Patient complains of other peers on the unit and states that she is ready to return home but still feels anxious. DISCHARGE ASSESSMENT: In today's interview, patient is alert and oriented, pts dress is appropriate. Hygiene and grooming is well-kempt. Smiles on approach and is pleasant and engaged in the interview. Denies depression and anxiety. Denies suicidal and homicidal ideation, planning or intent. Denies and is not observed with jimi, psychotic symptoms of delusions, bizarre thinking, obsessions, paranoia, ruminations illogical thoughts, flight of ideas or having poor insight and judgement. Patient has normal mentation, declines further hospitalization on a voluntary status and meets criteria for discharge today. Patient encouraged to return to hospital if symptoms worsen or change and encouraged to call unit if he/she/they needs to speak to provider for questions regarding medications or care. MENTAL STATUS EXAMINATION ON DISCHARGE: Patient is a 74 -year-old , female, who presents to the emergency department with increased depression anxiety complains of poor sleep, passive suicidal thoughts, and increased anxiety Speech: Is fluid, conversant, normal rate, tone and volume Language skills are intact Thought processes including: linear and goal oriented Thought content: denies depression and anxiety. Denies suicidal/homicidal ideation, planning or intent. Abstract reasoning, and computation: fair Description of associations: denies, none observed Description of abnormal or psychotic thoughts: denies, none observed. Judgment: good Insight: good Orientation: alert and oriented to person, place, time and situation Recent and remote memory: intact Attention span and concentration: good Language: expansive Fund of knowledge: average Mood: Euthymic Mood Affect: reactive MEDICATIONS ON DISCHARGE: See Medication Reconciliation PLAN/FOLLOWUP ARRANGEMENTS: [facility] and will also see Dr. Reyes for counseling The amount of time spent in the coordination of care for this patient was ap proximately 25 minutes. ETOH/Disorder Med Rx ETOH/DRUG DISORDER RX: N/A Vital Signs/I&Os Vital Signs Date Time Temp Pulse Resp B/P (MAP) Pulse Ox O2 Delivery O2 Flow Rate FiO2 12/13/20 06:00 98.1 68 20 108/56 (73) 96 12/12/20 06:44 Room Air Medications Scheduled Alprazolam (Alprazolam) 0.25 Mg Tablet, 0.25 MG PO QID for Anxiety, #28 Ascorbic Acid (Vitamin C) 1,000 Mg Tablet, 1,000 MG PO DAILY, (Reported) Cholecalciferol (Vitamin D3) (Vitamin D3) 1,000 Unit Tablet, 4,000 UNITS PO DAILY, (Reported) [place]-3 Fatty Acids/Fish Oil (Fish Oil 1,000 mg Capsule) 1 Each Capsule, 1,000 MG PO DAILY, (Reported) Pantoprazole Sodium (Pantoprazole Sodium) 40 Mg Tablet.dr, 40 MG PO DAILY, (Reported) Sertraline Hcl (Zoloft) 100 Mg Tablet, 100 MG PO DAILY for Depression, #7 Take 125 mg daily Sertraline Hcl (Zoloft) 25 Mg Tablet, 25 MG PO DAILY for Depression, #7 Take 125 mg daily Trazodone HCl (Trazodone HCl) 50 Mg Tablet, 75 MG PO QHS for Sleep, #11 Take 1 1/2 tablet at bedtime Zinc (Zinc) 50 Mg Tablet, 50 MG PO DAILY, (Reported) [Refresh Frederick-3] , 1 DROP OU BID for SEVERE DRY EYE, (Reported) Allergies Coded Allergies: Contrast Media (Verified Adverse Reaction, Intermediate, "seizure", 11/19/20) codeine (Verified Adverse Reaction, Mild, "very sleepy", 11/19/20) PONCHO RICO NP Dec 13, 2020 11:20
== END 2020-12-13 15:08 | disposition home or self-care (01) | DRG 885 ==
LOC: M ED 19:19 → M ED INP 12-02 16:21 → M PSY 12-02 17:53
PROVIDERS: ADMIT Psychiatry & Neurology Psychiatry; ATTEND Psychiatry & Neurology Psychiatry
DX: F33.1 Major depressive disorder, recurrent, moderate (principal); F41.1 Generalized anxiety disorder; F42.8 Other obsessive-compulsive disorder; Z20.822 Contact with and (suspected) exposure to COVID-19; Z79.899 Other long term (current) drug therapy; Z88.5 Allergy status to narcotic agent; Z91.041 Radiographic dye allergy status; K21.9 Gastro-esophageal reflux disease without esophagitis; Z63.4 Disappearance and death of family member

== ENCOUNTER → 2020-12-20 | Outpatient (CLI) | payer MEDICARE ==
[~2020-12-20] MED LIST changes: +FLUO10TA2 PO; +ZOLO100T PO; +ZOLO25TA PO
[2020-12-20 11:00] LABS: BASO % 0.6 % (0.0-1.0); EOS # 0.2 10^3/uL (0.0-0.5); EOS % 2.3 % (0.0-3.0); HEMOGLOBIN 14.1 g/dl (12.0-15.5); LYMPH # 1.4 10^3/uL (1.5-5.0); LYMPH % 21.3 % (24.0-44.0); MEAN CORPUSCULAR HEMOGLOBIN 27.4 pg (27.0-33.0); MEAN CORPUSCULAR VOLUME 85.6 fl (80.0-96.0); MONO # 0.5 10^3/uL (0.0-0.8); NEUTROPHILS # 4.5 10^3/uL (1.5-8.5); NEUTROPHILS % 68.5 % (36.0-66.0); PLATELET COUNT, AUTOMATED 200 10^3/uL (150-450); RED BLOOD COUNT 5.14 10^6/uL (4.00-5.40); WHITE BLOOD COUNT 6.6 10^3/uL (4.0-10.0)
[2020-12-20 11:52] LABS: ALBUMIN 3.5 GM/DL (3.2-5.2); ALT/SGPT 23 U/L (12-78); BILIRUBIN,TOTAL 0.4 MG/DL (0.2-1.0); BLOOD UREA NITROGEN 11 MG/DL (7-18); CALCIUM LEVEL 9.1 MG/DL (8.8-10.2); CARBON DIOXIDE LEVEL 31 MEQ/L (21-32); CHLORIDE LEVEL 114 MEQ/L (98-107); CREATININE FOR GFR 0.98 MG/DL (0.55-1.30); FOLATE 17.2 NG/ML (>5.4); GLOMERULAR FILTRATION RATE 58.9 (>39); GLUCOSE, FASTING 108 MG/DL (70-100); MAGNESIUM LEVEL 2.3 MG/DL (1.8-2.4); SODIUM LEVEL 137 MEQ/L (136-145); TOTAL PROTEIN 6.6 GM/DL (6.4-8.2); VITAMIN B12 LEVEL 474 PG/ML (247-911)
== END ==
LOC: M PLALAB 08:00
PROVIDERS: ATTEND Psychiatry & Neurology Psychiatry
DX: F33.1 Major depressive disorder, recurrent, moderate (principal)

== ENCOUNTER → 2021-05-07 | Outpatient (CLI) | payer MEDICARE ==
[~2021-05-07] MED LIST changes: -FLUO10CA16 PO; +FLUO10CA18 PO
== END ==
LOC: M LAB 11:24
PROVIDERS: ATTEND Family Medicine
DX: I45.10 Unspecified right bundle-branch block (principal)

== ENCOUNTER → 2021-05-20 | Outpatient (CLI) | payer MEDICARE ==
[~2021-05-20] MED LIST changes: +E-Z-GAS II EFFERVESCENT PACKET (SODIUM BICARB./CITRIC ACID/SIMETHICONE) As Ordered ONE; +E-Z-HD 98% w/w 340GM SUSP BTL As Ordered ONE; +E-Z-PAQUE 96% w/w SUSP 176GM BTL As Ordered ONE; +FLUO10CA16 PO; -FLUO10CA18 PO
--- NOTE | 2021-05-20 17:00 | REP ---
INDICATION: GERD. COMPARISON: None. TECHNIQUE: The procedure was performed under the direct supervision of Dr. Mendez. The images were reviewed with Dr. Mendez. Liquid barium and gas producing crystals were given in the erect position as well as liquid barium in the prone oblique position in order to perform a double contrast upper GI examination. A combination of fluoroscopy, spot films and last image hold technology was utilized. 1.9 minutes of fluoro time was utilized for this procedure. FINDINGS: The artist agent film shows no organomegaly or pathological masses. The intestinal gas pattern is non-specific. There are surgical clips noted in the right upper quadrant. There are sutures noted in the pelvis. The oral and pharyngeal stages of deglutition are unremarkable. Esophageal transport is prompt and efficient and there is no esophagitis, stricture, mucosal ring or hiatal hernia. There is gastroesophageal reflux demonstrated to the level of the lydia. Within the stomach there are prominent folds. Within the antrum of the stomach there is mucosal irregularity and a possible ulcer niche. Recommend endoscopy for further evaluation. The duodenal brambila are normally outlined. The mucosal folds are smooth and regular. There is no duodenitis pancreatitis peptic ulcer disease or neoplasm. The visualized portion of the proximal small bowel appears normal in course and caliber. IMPRESSION: 1. There is gastroesophageal reflux demonstrated to the level of the lydia. 2. Within the stomach there are prominent folds. Within the antrum of the stomach there is mucosal irregularity and a possible ulcer niche. Recommend endoscopy for further evaluation. . <Electronically signed by Eugenio Maurer > 05/20/21 0823 <Electronically signed by Wild Mendez > 05/20/21 [id number]
== END ==
LOC: M RAD 08:14
PROVIDERS: ATTEND Family Medicine
DX: K21.9 Gastro-esophageal reflux disease without esophagitis (principal)

== ENCOUNTER → 2021-05-21 | Outpatient (CLI) | payer MEDICARE ==
[~2021-05-21] MED LIST changes: -E-Z-GAS II EFFERVESCENT PACKET (SODIUM BICARB./CITRIC ACID/SIMETHICONE) As Ordered ONE; -E-Z-HD 98% w/w 340GM SUSP BTL As Ordered ONE; -E-Z-PAQUE 96% w/w SUSP 176GM BTL As Ordered ONE
[2021-05-21 11:25] LABS: HEMATOCRIT 45.4 % (36.0-47.0); HEMOGLOBIN 14.2 g/dl (12.0-15.5); MEAN CORPUSCULAR HEMOGLOBIN 26.1 pg (27.0-33.0); MEAN CORPUSCULAR HGB CONC 31.3 g/dl (32.0-36.5); MEAN CORPUSCULAR VOLUME 83.3 fl (80.0-96.0); PLATELET COUNT, AUTOMATED 186 10^3/uL (150-450); RED BLOOD COUNT 5.45 10^6/uL (4.00-5.40); WHITE BLOOD COUNT 6.5 10^3/uL (4.0-10.0)
[2021-05-21 11:47] LABS: ALBUMIN 3.7 GM/DL (3.2-5.2); ALT/SGPT 21 U/L (12-78); BILIRUBIN,TOTAL 0.3 MG/DL (0.2-1.0); BLOOD UREA NITROGEN 14 MG/DL (7-18); CALCIUM LEVEL 9.6 MG/DL (8.8-10.2); CARBON DIOXIDE LEVEL 31 MEQ/L (21-32); CHLORIDE LEVEL 107 MEQ/L (98-107); GLOMERULAR FILTRATION RATE > 60.0 (>39); GLUCOSE, FASTING 121 MG/DL (70-100); IRON (FE) 50 UG/DL (50-170); PERCENT SATURATION 13.8 % (13.2-45.0); POTASSIUM SERUM 4.8 MEQ/L (3.5-5.1); SODIUM LEVEL 141 MEQ/L (136-145); TOTAL IRON BINDING CAPACITY 362 UG/DL (250-450)
== END ==
LOC: M LAB 10:33
PROVIDERS: ATTEND Family Medicine
DX: D64.9 Anemia, unspecified (principal); E03.9 Hypothyroidism, unspecified; R53.83 Other fatigue

== ENCOUNTER → 2021-07-21 | Outpatient (CLI) | payer MEDICARE ==
[~2021-07-21] MED LIST changes: -FLUO10CA16 PO; +FLUO10CA18 PO
[2021-07-21 17:09] LABS: HEMATOCRIT 44.8 % (36.0-47.0); HEMOGLOBIN 13.9 g/dl (12.0-15.5); MEAN CORPUSCULAR HEMOGLOBIN 25.9 pg (27.0-33.0); MEAN CORPUSCULAR VOLUME 83.4 fl (80.0-96.0); PLATELET COUNT, AUTOMATED 170 10^3/uL (150-450); RED BLOOD COUNT 5.37 10^6/uL (4.00-5.40); WHITE BLOOD COUNT 7.3 10^3/uL (4.0-10.0)
[2021-07-21 17:13] LABS: ALBUMIN 3.6 GM/DL (3.2-5.2); BILIRUBIN,TOTAL 0.4 MG/DL (0.2-1.0); CALCIUM LEVEL 9.3 MG/DL (8.8-10.2); CREATININE FOR GFR 1.01 MG/DL (0.55-1.30); GLOMERULAR FILTRATION RATE 56.9 (>39); POTASSIUM SERUM 4.5 MEQ/L (3.5-5.1); THYROID STIMULATING HORMONE 2.81 uIU/ML (0.358-3.740); TOTAL PROTEIN 7.1 GM/DL (6.4-8.2)
== END ==
LOC: M LAB 15:05
PROVIDERS: ATTEND Family Medicine
DX: R10.9 Unspecified abdominal pain (principal); Z79.899 Other long term (current) drug therapy

== ENCOUNTER → 2021-07-24 | Outpatient (CLI) | payer MEDICARE | LOC: M PLAIMG 08:23 | PROVIDERS: ATTEND Family Medicine | DX: R10.9 Unspecified abdominal pain (principal) ==

== ENCOUNTER → 2021-08-27 | Outpatient (CLI) | payer MEDICARE ==
[~2021-08-27] MED LIST changes: -D31000TA2 PO; +KLON0.5T PO; +MULTCHW14 PO; +SERT150C PO; +VITA100093 PO
== END ==
LOC: M LABSMTC 09:11
PROVIDERS: ATTEND Anesthesiology
DX: Z11.52 Encounter for screening for COVID-19 (principal)

== ENCOUNTER 2021-09-01 09:10 | Day surgery (SDC) | payer MEDICARE ==
[~2021-09-01] VITALS: Ht 167.6 cm; Wt 58.1 kg
[~2021-09-01 09:10] MED LIST changes: +NS 1,000 ML IV ONE
[2021-09-01] MEDS ORDERED: propofoL 200 MG/20 ML VIAL As Ordered ONE (10:31)
[2021-09-01] MEDS ORDERED: LIDOCAINE 2% 100MG/5ML SDV (FOR ANES.) As Ordered ONE (10:31)
[2021-09-01 11:47] VITALS: BP 117/67
== END 2021-09-01 11:50 | disposition home or self-care (01) ==
LOC: M OPP 09:10
PROVIDERS: ATTEND Internal Medicine Gastroenterology
DX: K31.89 Other diseases of stomach and duodenum (principal); K44.9 Diaphragmatic hernia without obstruction or gangrene; R10.13 Epigastric pain; R93.3 Abnormal findings on diagnostic imaging of other parts of digestive tract; Z79.899 Other long term (current) drug therapy; Z88.5 Allergy status to narcotic agent; Z91.041 Radiographic dye allergy status

== ENCOUNTER → 2021-09-18 | Outpatient (CLI) | payer MEDICARE ==
[~2021-09-18] MED LIST changes: -NS 1,000 ML IV ONE
== END ==
LOC: M WHC 13:54
PROVIDERS: ATTEND Family Medicine
DX: Z12.31 Encounter for screening mammogram for malignant neoplasm of breast (principal); M81.0 Age-related osteoporosis without current pathological fracture; Z80.3 Family history of malignant neoplasm of breast; Z78.0 Asymptomatic menopausal state

== ENCOUNTER → 2022-01-21 | Outpatient (CLI) | payer MEDICARE ==
[2022-01-21 11:03] LABS: HEMATOCRIT 43.4 % (36.0-47.0); HEMOGLOBIN 13.5 g/dl (12.0-15.5); MEAN CORPUSCULAR HEMOGLOBIN 25.9 pg (27.0-33.0); MEAN CORPUSCULAR HGB CONC 31.1 g/dl (32.0-36.5); MEAN CORPUSCULAR VOLUME 83.3 fl (80.0-96.0); PLATELET COUNT, AUTOMATED 177 10^3/uL (150-450); RED BLOOD COUNT 5.21 10^6/uL (4.00-5.40); WHITE BLOOD COUNT 4.9 10^3/uL (4.0-10.0)
[2022-01-21 11:23] LABS: HEMOGLOBIN A1c 5.8 %
[2022-01-21 11:42] LABS: ALBUMIN 3.6 GM/DL (3.2-5.2); ALT/SGPT 21 U/L (12-78); BILIRUBIN,TOTAL 0.4 MG/DL (0.2-1.0); BLOOD UREA NITROGEN 14 MG/DL (7-18); CALCIUM LEVEL 9.2 MG/DL (8.8-10.2); CARBON DIOXIDE LEVEL 27 MEQ/L (21-32); CHLORIDE LEVEL 108 MEQ/L (98-107); CHOLESTEROL LEVEL 225 MG/DL (<200); CHOLESTEROL RISK RATIO 3.308 (<5); CREATININE FOR GFR 0.87 MG/DL (0.55-1.30); GLOMERULAR FILTRATION RATE > 60.0 (>39); GLUCOSE, FASTING 99 MG/DL (70-100); HDL CHOLESTEROL 68 MG/DL (>40); LDL CHOLESTEROL 139 MG/DL (<100); NON-HDL-C 157 MG/DL; POTASSIUM SERUM 5.1 MEQ/L (3.5-5.1); SODIUM LEVEL 138 MEQ/L (136-145); TOTAL PROTEIN 6.8 GM/DL (6.4-8.2); TRIGLYCERIDES LEVEL 91 MG/DL (<150)
[2022-01-21 12:17] LABS: TOTAL 25(OH) VITAMIN D 78.7 NG/ML (30.0-100.0)
== END ==
LOC: M LAB 09:13
PROVIDERS: ATTEND Family Medicine
DX: D64.9 Anemia, unspecified (principal); R53.83 Other fatigue; E03.9 Hypothyroidism, unspecified

== ENCOUNTER → 2022-03-05 | Outpatient (REF) | payer MEDICARE | LOC: M SFHCDERM 14:22 | PROVIDERS: ATTEND Nurse Practitioner Family | DX: D04.71 Carcinoma in situ of skin of right lower limb, including hip (principal) ==

== ENCOUNTER → 2022-03-27 | Outpatient (REF) | payer MEDICARE | LOC: M LAB REF 15:56 | PROVIDERS: ATTEND Surgery | DX: C44.722 Squamous cell carcinoma of skin of right lower limb, including hip (principal) ==

== ENCOUNTER → 2022-06-29 | Outpatient (CLI) | payer MEDICARE | LOC: M RAD 10:48 | PROVIDERS: ATTEND Family Medicine | DX: M41.9 Scoliosis, unspecified (principal); M51.36 Other intervertebral disc degeneration, lumbar region; M25.78 Osteophyte, vertebrae ==

== ENCOUNTER → 2022-06-30 | Outpatient (CLI) | payer MEDICARE ==
[2022-06-30 09:40] LABS: HEMATOCRIT 43.3 % (36.0-47.0); HEMOGLOBIN 13.4 g/dl (12.0-15.5); MEAN CORPUSCULAR HEMOGLOBIN 25.8 pg (27.0-33.0); MEAN CORPUSCULAR HGB CONC 30.9 g/dl (32.0-36.5); MEAN CORPUSCULAR VOLUME 83.3 fl (80.0-96.0); PLATELET COUNT, AUTOMATED 202 10^3/uL (150-450)
[2022-06-30 10:18] LABS: HEMOGLOBIN A1c 5.5 % (4.0-6.0)
[2022-06-30 10:19] LABS: ALBUMIN 3.7 G/DL (3.2-5.2); ALKALINE PHOSPHATASE 90 U/L (46-116); ALT/SGPT 19 U/L (7.0-40); AST/SGOT 22 U/L (<34); BILIRUBIN,TOTAL 0.4 MG/DL (0.3-1.2); BLOOD UREA NITROGEN 19 MG/DL (9-23); CALCIUM LEVEL 9.5 MG/DL (8.3-10.6); CARBON DIOXIDE LEVEL 30 MMOL/L (20-31); CHLORIDE LEVEL 106 MMOL/L (98-107); CHOLESTEROL LEVEL 212 MG/DL (<200); CHOLESTEROL RISK RATIO 3.25 (<5); CREATININE FOR GFR 0.95 MG/DL (0.55-1.30); GLOMERULAR FILTRATION RATE > 60.0 (>39); GLUCOSE, FASTING 96 MG/DL (74-106); HDL CHOLESTEROL 65.2 MG/DL (>40); IRON (FE) 80 UG/DL (50-170); LDL CHOLESTEROL 123.6 MG/DL (<100); NON-HDL-C 147 MG/DL; PERCENT SATURATION 20.5 % (13.2-45.0); POTASSIUM SERUM 5.1 MMOL/L (3.5-5.1); SODIUM LEVEL 142 MMOL/L (136-145); TOTAL IRON BINDING CAPACITY 391 UG/DL (250-425); TOTAL PROTEIN 6.7 G/DL (5.7-8.2); TRIGLYCERIDES LEVEL 116 MG/DL (<150)
[2022-06-30 10:20] LABS: THYROID STIMULATING HORMONE 2.021 uIU/ML (0.55-4.78)
[2022-06-30 10:21] LABS: FOLATE 14.6 NG/ML (>5.4)
[2022-06-30 10:27] LABS: VITAMIN B12 LEVEL > 2000 PG/ML (211-911)
== END ==
LOC: M LAB 08:46
PROVIDERS: ATTEND Family Medicine
DX: R53.83 Other fatigue (principal); I10 Essential (primary) hypertension; E03.9 Hypothyroidism, unspecified; Z79.899 Other long term (current) drug therapy

== ENCOUNTER → 2022-09-29 | Outpatient (REF) | payer MEDICARE ==
[~2022-09-29] MED LIST changes: -FLUO10TA2 PO; +FLUO1TAB PO
== END ==
LOC: M SFHCDERM 12:10
PROVIDERS: ATTEND Nurse Practitioner Family
DX: D22.5 Melanocytic nevi of trunk (principal)

== ENCOUNTER → 2022-10-02 | Outpatient (CLI) | payer MEDICARE | LOC: M WHC 12:52 | PROVIDERS: ATTEND Family Medicine | DX: Z12.31 Encounter for screening mammogram for malignant neoplasm of breast (principal) ==

== ENCOUNTER → 2023-01-05 | Outpatient (CLI) | payer MEDICARE ==
[2023-01-05 10:30] LABS: HEMATOCRIT 43.3 % (36.0-47.0); HEMOGLOBIN 13.3 g/dl (12.0-15.5); MEAN CORPUSCULAR HEMOGLOBIN 25.7 pg (27.0-33.0); MEAN CORPUSCULAR HGB CONC 30.7 g/dl (32.0-36.5); MEAN CORPUSCULAR VOLUME 83.6 fl (80.0-96.0); PLATELET COUNT, AUTOMATED 163 10^3/uL (150-450); RED BLOOD COUNT 5.18 10^6/uL (4.00-5.40); WHITE BLOOD COUNT 5.4 10^3/uL (4.0-10.0)
[2023-01-05 10:56] LABS: HEMOGLOBIN A1c 5.6 % (4.0-6.0)
[2023-01-05 11:04] LABS: ALBUMIN 3.8 G/DL (3.2-5.2); ALKALINE PHOSPHATASE 77 U/L (46-116); ALT/SGPT 17 U/L (7.0-40); AST/SGOT 15 U/L (<34); BILIRUBIN,TOTAL 0.4 MG/DL (0.3-1.2); BLOOD UREA NITROGEN 16 MG/DL (9-23); CARBON DIOXIDE LEVEL 29 MMOL/L (20-31); CHLORIDE LEVEL 108 MMOL/L (98-107); CHOLESTEROL LEVEL 165 MG/DL (<200); CHOLESTEROL RISK RATIO 2.65 (<5); GLOMERULAR FILTRATION RATE > 60.0 (>39); GLUCOSE, FASTING 100 MG/DL (74-106); HDL CHOLESTEROL 62.2 MG/DL (>40); LDL CHOLESTEROL 89.8 MG/DL (<100); NON-HDL-C 102.8 MG/DL; POTASSIUM SERUM 5.1 MMOL/L (3.5-5.1); SODIUM LEVEL 144 MMOL/L (136-145); TOTAL PROTEIN 6.5 G/DL (5.7-8.2); TRIGLYCERIDES LEVEL 65 MG/DL (<150)
[2023-01-05 11:06] LABS: THYROID STIMULATING HORMONE 2.212 uIU/ML (0.55-4.78)
[2023-01-05 11:07] LABS: TOTAL 25(OH) VITAMIN D 78.5 NG/ML (20.0-100.0)
== END ==
LOC: M LAB 10:05
PROVIDERS: ATTEND Family Medicine
DX: D64.9 Anemia, unspecified (principal); R53.83 Other fatigue; E03.9 Hypothyroidism, unspecified; Z79.899 Other long term (current) drug therapy

== ENCOUNTER → 2023-03-29 | Outpatient (CLI) | payer MEDICARE | LOC: M RAD 09:59 | PROVIDERS: ATTEND Family Medicine | DX: S09.90XA Unspecified injury of head, initial encounter (principal); S49.91XA Unspecified injury of right shoulder and upper arm, initial encounter; S49.92XA Unspecified injury of left shoulder and upper arm, initial encounter; S19.9XXA Unspecified injury of neck, initial encounter; X58.XXXA Exposure to other specified factors, initial encounter; Y92.9 Unspecified place or not applicable ==

== ENCOUNTER → 2023-04-22 | Outpatient (CLI) | payer MEDICARE | LOC: M ADAMS 14:38 | PROVIDERS: ATTEND Family Medicine | DX: J44.9 Chronic obstructive pulmonary disease, unspecified (principal) ==

== ENCOUNTER → 2023-07-01 | Outpatient (CLI) | payer MEDICARE ==
[2023-07-01 09:18] LABS: HEMATOCRIT 41.7 % (36.0-47.0); HEMOGLOBIN 12.9 g/dl (12.0-15.5); MEAN CORPUSCULAR HEMOGLOBIN 25.7 pg (27.0-33.0); MEAN CORPUSCULAR HGB CONC 30.9 g/dl (32.0-36.5); MEAN CORPUSCULAR VOLUME 83.1 fl (80.0-96.0); PLATELET COUNT, AUTOMATED 155 10^3/uL (150-450); RED BLOOD COUNT 5.02 10^6/uL (4.00-5.40); WHITE BLOOD COUNT 6.6 10^3/uL (4.0-10.0)
[2023-07-01 09:42] LABS: ALBUMIN 3.5 G/DL (3.2-5.2); ALKALINE PHOSPHATASE 73 U/L (46-116); ALT/SGPT 17 U/L (7.0-40); AST/SGOT 17 U/L (<34); BILIRUBIN,TOTAL 0.4 MG/DL (0.3-1.2); BLOOD UREA NITROGEN 15 MG/DL (9-23); CALCIUM LEVEL 8.2 MG/DL (8.3-10.6); CARBON DIOXIDE LEVEL 31 MMOL/L (20-31); CHLORIDE LEVEL 108 MMOL/L (98-107); CHOLESTEROL LEVEL 186 MG/DL (<200); CHOLESTEROL RISK RATIO 3.07 (<5); CREATININE FOR GFR 0.94 MG/DL (0.55-1.30); GLOMERULAR FILTRATION RATE > 60.0 (>39); GLUCOSE, FASTING 96 MG/DL (74-106); HDL CHOLESTEROL 60.4 MG/DL (>40); NON-HDL-C 125.6 MG/DL; POTASSIUM SERUM 4.4 MMOL/L (3.5-5.1); SODIUM LEVEL 142 MMOL/L (136-145); TOTAL PROTEIN 6.2 G/DL (5.7-8.2); TRIGLYCERIDES LEVEL 118 MG/DL (<150)
[2023-07-01 09:44] LABS: THYROID STIMULATING HORMONE 2.964 uIU/ML (0.55-4.78)
[2023-07-01 09:45] LABS: TOTAL 25(OH) VITAMIN D 82.2 NG/ML (20.0-100.0)
[2023-07-01 09:51] LABS: HEMOGLOBIN A1c 5.7 % (4.0-6.0)
== END ==
LOC: M LAB 08:41
PROVIDERS: ATTEND Family Medicine
DX: I10 Essential (primary) hypertension (principal); E03.9 Hypothyroidism, unspecified; R53.83 Other fatigue; Z79.899 Other long term (current) drug therapy

== ENCOUNTER → 2023-09-09 | Outpatient (CLI) | payer MEDICARE ==
[~2023-09-09] MED LIST changes: -KLON0.5T PO; +KLON0.5T8 PO
== END ==
LOC: M RAD 17:00
PROVIDERS: ATTEND Family Medicine
DX: J44.9 Chronic obstructive pulmonary disease, unspecified (principal)

== ENCOUNTER → 2023-09-20 | Outpatient (CLI) | payer MEDICARE | LOC: M WHC 12:50 | PROVIDERS: ATTEND Family Medicine | DX: Z13.820 Encounter for screening for osteoporosis (principal); M85.851 Other specified disorders of bone density and structure, right thigh; M85.852 Other specified disorders of bone density and structure, left thigh; M85.88 Other specified disorders of bone density and structure, other site ==

== ENCOUNTER 2023-10-05 17:05 | Emergency (ER) | payer MEDICARE ==
[~2023-10-05] VITALS: Ht 167.6 cm; Wt 59.0 kg
[~2023-10-05 17:05] MED LIST changes: -ACET32TAB PO; -ALEN35TA56; -DOXY100T27; -HYDR5LIQ2; -LIDO1PAD TOP; -METH-1164 PO; -PERC5TAB12 PO; -PRED10TA2; -SIMV20TA22
[2023-10-05 17:20] VITALS: TEMP 98.7
[2023-10-05] MEDS ORDERED: PRED10TA2 (17:37)
[2023-10-05] MEDS ORDERED: SIMV20TA22 (17:37)
[2023-10-05] MEDS ORDERED: HYDR5LIQ2 (17:37)
[2023-10-05] MEDS ORDERED: ACET32TAB PO (17:37)
[2023-10-05] MEDS ORDERED: ALEN35TA56 (17:37)
[2023-10-05] MEDS ORDERED: DOXY100T27 (17:37)
[2023-10-05] MEDS: MORPHINE 2 MG/ML 1ML VIAL IV ONE (18:18)
[2023-10-05] MEDS: diazePAM 10MG/2ML SYRINGE IV ONE (18:19)
[2023-10-05] MEDS: LIDOCAINE 5% (LIDODERM) PATCH TD ONE (18:20)
[2023-10-05] MEDS: MORPHINE 4 MG/ML 1ML VIAL IV ONE (18:51)
[2023-10-05 19:45] VITALS: BP 128/65
[2023-10-05 19:46] VITALS: O2SAT 94
[2023-10-05] MEDS ORDERED: LIDO1PAD TOP (19:48)
[2023-10-05] MEDS ORDERED: METH-1164 PO (19:48)
[2023-10-05] MEDS ORDERED: PERC5TAB12 PO (19:48)
[2023-10-05] MEDS: OXYCODONE/APAP 5MG/325MG(HOME DOSE PACK) PO ONE (19:58)
== END 2023-10-05 20:06 | disposition home or self-care (01) ==
LOC: EDBD 17:05 → M ED 17:05
DX: M54.6 Pain in thoracic spine (principal); I44.4 Left anterior fascicular block; I45.10 Unspecified right bundle-branch block; J44.9 Chronic obstructive pulmonary disease, unspecified; K21.9 Gastro-esophageal reflux disease without esophagitis; F41.9 Anxiety disorder, unspecified; Z12.31 Encounter for screening mammogram for malignant neoplasm of breast; Z88.5 Allergy status to narcotic agent; Z91.041 Radiographic dye allergy status; Z79.52 Long term (current) use of systemic steroids; Z79.891 Long term (current) use of opiate analgesic; Z79.899 Other long term (current) drug therapy
CPT/HCPCS: 77063; 77067; 93005; 96374; 96375; 99284; J3360

== ENCOUNTER → 2023-10-05 | Outpatient (CLI) | payer MEDICARE ==
[~2023-10-05] MED LIST changes: +ACET32TAB PO; +ALEN35TA56; +DOXY100T27; +HYDR5LIQ2; +LIDO1PAD TOP; +METH-1164 PO; +PERC5TAB12 PO; +PRED10TA2; +SIMV20TA22
== END ==
LOC: M WHC 08:21
PROVIDERS: ATTEND Family Medicine
DX: Z12.31 Encounter for screening mammogram for malignant neoplasm of breast (principal)

== ENCOUNTER 2023-10-06 16:21 | Emergency (ER) | payer MEDICARE ==
[~2023-10-06] VITALS: Ht 167.6 cm; Wt 58.2 kg
[~2023-10-06 16:21] MED LIST changes: +ACET32TAB PO; +ALEN35TA56; +DOXY100T27; +FLUO-290 PO; -FLUO10CA18 PO; +HYDR5LIQ2; +LIDO1PAD TOP; +METH-1164 PO; +PERC5TAB12 PO; +PRED10TA2; +SIMV20TA22
[2023-10-06 17:45] LABS: BASO % 0.4 % (0.0-1.0); EOS # 0.1 10^3/uL (0.0-0.5); EOS % 1.7 % (0.0-3.0); HEMATOCRIT 39.8 % (36.0-47.0); HEMOGLOBIN 12.9 g/dl (12.0-15.5); LYMPH # 1.3 10^3/uL (1.5-5.0); LYMPH % 16.6 % (24.0-44.0); MEAN CORPUSCULAR HEMOGLOBIN 26.3 pg (27.0-33.0); MEAN CORPUSCULAR HGB CONC 32.4 g/dl (32.0-36.5); MEAN CORPUSCULAR VOLUME 81.1 fl (80.0-96.0); MONO # 0.7 10^3/uL (0.0-0.8); MONO % 8.5 % (2.0-8.0); NEUTROPHILS # 5.6 10^3/uL (1.5-8.5); NEUTROPHILS % 72.3 % (36.0-66.0); PLATELET COUNT, AUTOMATED 227 10^3/uL (150-450); RED BLOOD COUNT 4.91 10^6/uL (4.00-5.40); WHITE BLOOD COUNT 7.8 10^3/uL (4.0-10.0)
[2023-10-06] MEDS: methylPREDNISolone 125MG 2ML VIAL IV ONE (17:51)
[2023-10-06] MEDS: diphenhydrAMINE 50MG/ML VIAL IV STA (17:51)
[2023-10-06 18:09] LABS: CK-MB VALUE MASS < 1.0 NG/ML (<3.6)
[2023-10-06 18:10] LABS: ALBUMIN 2.6 G/DL (3.2-5.2); ALKALINE PHOSPHATASE 89 U/L (46-116); ALT/SGPT 18 U/L (7.0-40); AST/SGOT 12 U/L (<34); BILIRUBIN,DIRECT < 0.1 MG/DL (<0.4); BILIRUBIN,TOTAL 0.3 MG/DL (0.3-1.2); BLOOD UREA NITROGEN 24 MG/DL (9-23); CALCIUM LEVEL 9.2 MG/DL (8.3-10.6); CARBON DIOXIDE LEVEL 29 MMOL/L (20-31); CHLORIDE LEVEL 104 MMOL/L (98-107); CPK CREATINE PHOSPHOKINASE 29 U/L (34-145); CREATININE FOR GFR 0.85 MG/DL (0.55-1.30); GLOMERULAR FILTRATION RATE > 60.0 (>39); GLUCOSE, FASTING 113 MG/DL (74-106); MB/CK RELATIVE INDEX 3.44 (< OR =4); POTASSIUM SERUM 4.6 MMOL/L (3.5-5.1); SODIUM LEVEL 139 MMOL/L (136-145)
[2023-10-06 18:12] LABS: THYROID STIMULATING HORMONE 2.039 uIU/ML (0.55-4.78); THYROXINE (T4) 6.8 UG/DL (4.5-10.9)
[2023-10-06] MEDS ORDERED: ISOVUE-370 76% 100ML VIAL As Ordered ONE (18:27)
[2023-10-06] MEDS: MORPHINE 2 MG/ML 1ML VIAL IV ONE (19:38)
[2023-10-06 20:30] VITALS: BP 116/83; TEMP 98.7; O2SAT 95
== END 2023-10-06 20:40 | disposition home or self-care (01) ==
LOC: M ED 16:21
DX: M54.6 Pain in thoracic spine (principal); J98.11 Atelectasis; J91.8 Pleural effusion in other conditions classified elsewhere; I44.4 Left anterior fascicular block; I45.10 Unspecified right bundle-branch block; F32.9 Major depressive disorder, single episode, unspecified; K21.9 Gastro-esophageal reflux disease without esophagitis; F41.9 Anxiety disorder, unspecified; J44.9 Chronic obstructive pulmonary disease, unspecified; Z91.041 Radiographic dye allergy status; Z88.5 Allergy status to narcotic agent; Z79.52 Long term (current) use of systemic steroids; Z79.899 Other long term (current) drug therapy; Z79.891 Long term (current) use of opiate analgesic
CPT/HCPCS: 71045; 71275; 80048; 80076; 82550; 82553; 83605; 83880; 84436; 84443; 84484; 85025; 87040; 93005; 93041; 94760; 96374; 96375; 99285; J1200; J2919; Q9967

== ENCOUNTER → 2023-11-05 | Outpatient (CLI) | payer MEDICARE ==
[~2023-11-05] MED LIST changes: +FLUO-365 PO; -FLUO20CA22 PO
== END ==
LOC: M PLAIMG 07:47
PROVIDERS: ATTEND Physician Assistant
DX: I34.0 Nonrheumatic mitral (valve) insufficiency (principal)

== ENCOUNTER → 2023-11-16 | Outpatient (REF) | payer MEDICARE | LOC: M LAB REF 13:08 | PROVIDERS: ATTEND Internal Medicine Critical Care Medicine | DX: J18.9 Pneumonia, unspecified organism (principal) ==

== ENCOUNTER → 2023-12-08 | Outpatient (CLI) | payer MEDICARE | LOC: M RAD 15:51 | PROVIDERS: ATTEND Family Medicine | DX: E04.2 Nontoxic multinodular goiter (principal) ==

== ENCOUNTER → 2024-01-04 | Outpatient (CLI) | payer MEDICARE | LOC: M PLAIMG 12:34 | PROVIDERS: ATTEND Internal Medicine Critical Care Medicine | DX: J18.9 Pneumonia, unspecified organism (principal) ==

== ENCOUNTER → 2024-02-03 | Outpatient (CLI) | payer MEDICARE ==
[2024-02-03 08:41] LABS: HEMATOCRIT 45.2 % (36.0-47.0); HEMOGLOBIN 14.1 g/dl (12.0-15.5); MEAN CORPUSCULAR HEMOGLOBIN 25.7 pg (27.0-33.0); MEAN CORPUSCULAR HGB CONC 31.2 g/dl (32.0-36.5); MEAN CORPUSCULAR VOLUME 82.5 fl (80.0-96.0); PLATELET COUNT, AUTOMATED 153 10^3/uL (150-450); RED BLOOD COUNT 5.48 10^6/uL (4.00-5.40); WHITE BLOOD COUNT 5.5 10^3/uL (4.0-10.0)
[2024-02-03 09:09] LABS: ALBUMIN 3.8 G/DL (3.2-5.2); BILIRUBIN,TOTAL 0.4 MG/DL (0.3-1.2); CALCIUM LEVEL 9.3 MG/DL (8.3-10.6); CHOLESTEROL RISK RATIO 3.71 (<5); CREATININE FOR GFR 1.01 MG/DL (0.55-1.30); GLOMERULAR FILTRATION RATE 56.4 (>39); HDL CHOLESTEROL 62.4 MG/DL (>40); NON-HDL-C 169.6 MG/DL; PERCENT SATURATION 17.8 % (13.2-45.0); POTASSIUM SERUM 4.9 MMOL/L (3.5-5.1); TOTAL PROTEIN 6.5 G/DL (5.7-8.2)
[2024-02-03 09:13] LABS: THYROID STIMULATING HORMONE 1.54 uIU/ML (0.55-4.78); TOTAL 25(OH) VITAMIN D 35.9 NG/ML (20.0-100.0); TOTAL T3 112.6 NG/DL (60.0-181.0)
[2024-02-03 09:25] LABS: HEMOGLOBIN A1c 5.6 % (4.0-6.0)
== END ==
LOC: M LAB 08:00
PROVIDERS: ATTEND Family Medicine
DX: D64.9 Anemia, unspecified (principal); I10 Essential (primary) hypertension; R53.83 Other fatigue; E03.9 Hypothyroidism, unspecified; Z79.899 Other long term (current) drug therapy

== ENCOUNTER → 2024-06-01 | Outpatient (CLI) | payer MEDICARE | LOC: M SOG 10:20 | PROVIDERS: ATTEND Physician Assistant | DX: M25.561 Pain in right knee (principal) ==

== ENCOUNTER → 2025-03-08 | Outpatient (CLI) | payer MEDICARE ==
[~2025-03-08] MED LIST changes: +BUPR150T15 PO; -BUPR1TAB53 PO
== END ==
LOC: M PLAIMG 08:14
PROVIDERS: ATTEND Internal Medicine Critical Care Medicine
DX: J18.9 Pneumonia, unspecified organism (principal)

== ENCOUNTER → 2025-03-18 | Outpatient (CLI) | payer MEDICARE | LOC: M SLEEP 20:00 | PROVIDERS: ATTEND Internal Medicine Critical Care Medicine | DX: G47.33 Obstructive sleep apnea (adult) (pediatric) (principal) ==